=== PATIENT | male | born 1940 | race Asian ===

== ENCOUNTER 2023-10-30 15:40 | Emergency (ER) | payer OTHER, SELFPAY ==
[2023-10-30 15:42] VITALS: BP 102/51
[2023-10-30 16:15] LABS: % Basophils 0.3 % (0-2); % Eosinophils 0.6 % (0-6); % Immature Granulocytes 0.3 % (0-0.5); % Lymphocytes 7.9 % (20.5-51.1); % Monocytes 5.9 % (1.7-9.3); Absolute Basophils 0.1 10^3/uL (0-0.2); Absolute Eosinophils 0.1 10^3/uL (0-0.7); Absolute Immature Granulocytes 0.1 10^3/uL (0-0.05); Absolute Lymphocytes 1.2 10^3/uL (1.2-3.4); Absolute Monocytes 0.9 10^3/uL (0.1-0.6); Absolute Neutrophils 12.7 10^3/uL (1.4-6.5); Hematocrit 31.9 % (39.0-52.0); Mean Corp Hgb Conc. 34.5 g/dL (33.0-37.0); Mean Corpuscular Hgb 31.6 pg (27.0-31.0); Mean Corpuscular Volume 91.7 fL (80.0-94.0); Mean Platelet Volume 10.3 fL (7.4-10.4); Nucleated Red Blood Cells % 0 % (-); Platelet Count 137 10^3/uL (130-400); Red Blood Cell Count 3.48 10^6/uL (4.70-6.10); Red Cell Dist. Width 13.4 % (11.5-14.5)
[2023-10-30 16:21] LABS: ALT (SGPT) 13 U/L (0-50); AST (SGOT) 22 U/L (17-59); Albumin 3.5 g/dl (3.5-5.0); Alkaline Phosphatase 70 U/L (38-126); Blood Urea Nitrogen 34 mg/dl (9-20); Calcium 8.4 mg/dl (8.4-10.2); Carbon Dioxide 24 mmol/L (22-30); Chloride 100 mmol/L (98-107); Glucose 99 mg/dl (70-99); Potassium 4.1 mmol/L (3.5-5.1); Sodium 131 mmol/L (135-145); Total Bilirubin 0.7 mg/dl (0.2-1.3); Total Protein 5.9 g/dl (6.3-8.2); eGFR 42.75
[2023-10-30 17:16] VITALS: BMI 25.2
[2023-10-30 17:19] VITALS: BP 112/60
[2023-10-30 17:36] LABS: Urine Albumin Negative (Neg - Trace); Urine Bilirubin Negative (Negative); Urine Character Clear (Clear); Urine Color Yellow; Urine Glucose Negative (Negative); Urine Ketone Negative (Negative); Urine Leukocyte Negative (Negative); Urine Nitrite Negative (Negative); Urine Occult Blood Negative (Negative); Urine Urobilinogen Negative (Neg - 1+)
--- NOTE | 2023-10-30 19:08 | ED.GENMED ---
History of Present Illness
General
Chief Complaint: Weakness
Source: family
Exam Limitations: dementia
Time Seen by Provider: 10/30/23 17:28
History of Present Illness
History of Present Illness:
83-year-old male with history of hypertension and dementia who presents with generalized weakness. Daughter also states his blood pressure seems a little low. He has had occasional coughing. Yesterday he had an episode where he briefly seemed to
become unresponsive. Patient is unable to contribute to his own history. Daughter denies fevers. No vomiting. No head injury. During his passing episode he did sort of fall toward the floor.
Past History
Past History
ED Past Medical History: HTN and Other (Dementia, renal insufficiency)
Phy Exam
Physical Exam
Physical Exam:
CONSTITUTIONAL Patient alert. Well-appearing. Vital signs reviewed.
HEAD atraumatic, normocephalic.
EYES eyelids normal to inspection, Pupils equally round and reactive to light, Extraocular muscles intact, Conjunctiva normal, Sclera normal.
NECK normal range of motion, Trachea midline, no jugular venous distention.
RESPIRATORY CHEST No respiratory distress noted, Chest expansion equal, Bilateral breath sounds clear.
CARDIOVASCULAR regular rate and rhythm, Heart sounds normal.
ABDOMEN abdomen nontender, Bowel sounds normal. No distention.
BACK normal inspection, no obvious deformities
UPPER EXTREMITY range of motion normal, Motor strength normal, no cyanosis, no edema.
LOWER EXTREMITY range of motion normal, Motor strength normal, no cyanosis, no edema.
NEURO no focal deficits, cranial nerves intact. Nonverbal
SKIN skin warm, dry, and normal in color.
Course
Orders/Labs/Results
Orders:
Orders
10/30/23 15:47
Electrocardiogram (*1) Urgent
Reason for Study: Chest Pain
EKG- Treatment ONCE
10/30/23 15:56
Complete Blood Count/With Diff Urgent
Comprehensive Metabolic Panel Urgent
10/30/23 17:16
Urinalysis Reflex To Culture Urgent
Date Specimen was Collected: 10/30/23
Time Specimen was Collected: 17:12
10/30/23 17:17
CXR2 [CR Chest - 2 Views ] Urgent
Comment:
Reason For Exam: cough
10/30/23 17:40
CT Head W/o Iv Contrast Urgent
Comment:
Reason For Exam: fall, change in ms
10/30/23 19:37
COVID-19 Antigen Urgent
Source: Nasal Swab
Abnormal Lab Results
10/30/23
15:56
WBC 15.0 H 10^3/uL
(4.8-10.8)
RBC 3.48 L 10^6/uL
(4.70-6.10)
Hgb 11.0 L g/dL
(13.0-18.0)
Hct 31.9 L %
(39.0-52.0)
MCH 31.6 H pg
(27.0-31.0)
Abs Immat Gran (auto) 0.1 H 10^3/uL
(0-0.05)
Absolute Neuts (auto) 12.7 H 10^3/uL
(1.4-6.5)
Absolute Monos (auto) 0.9 H 10^3/uL
(0.1-0.6)
Neutrophils % 85.0 H %
(42.2-75.2)
Lymphocytes % 7.9 L %
(20.5-51.1)
Sodium 131 L mmol/L
(135-145)
BUN 34 H mg/dl
(9-20)
Creatinine 1.6 H mg/dL
(0.7-1.3)
Total Protein 5.9 L g/dl
(6.3-8.2)
10/30/23 15:56
10/30/23 15:56
Vital Signs
Initial and Last Documented VS:
Initial Vital Signs
Temp Pulse Resp BP Pulse Ox
98.1 F 67 16 102/51 97
10/30/23 15:42 10/30/23 15:42 10/30/23 15:42 10/30/23 15:42 10/30/23 15:42
Last Documented Vital Signs
Temp Pulse Resp BP Pulse Ox
98.7 F 58 16 112/60 99
10/30/23 18:00 10/30/23 17:19 10/30/23 17:19 10/30/23 17:19 10/30/23 17:19
MDM/Problems Addressed
MDM/Problems Addressed:
Leukocytosis, weakness
*Radiology
Radiology exam reviewed: preliminary read by ED provider (No focal infiltrates, no intracranial hemorrhage)
*Pulse Oximetry
Patient hypoxic: no
*EKG
Interpreted by ED Provider?: Yes
Rate: normal
Rhythm: sinus
[place]: normal axis
Ischemia: non-specific ST changes
*Inspector Final Assembly Electrical Interpretation
Rate: normal
Interpretation: normal
Rhythm: sinus
*Critical Care Note
Total Time (30-74mins, 75-104mins- exclusive of procedures): Not Applicable
Data Reviewed
Source: family
Prescriptions/Medications Considered But Not Given:
Considered antibiotics but no pneumonia, no UTI. Does have a mild leukocytosis but afebrile
Patient Management
Escalation/DeEscalation of care consider admission/obs:
Patient appears stable. No focal findings on exam and here he is at baseline with vital signs stable and no fever. Do acknowledge slight leukocytosis but no obvious source. Belly benign. I do feel he safe for discharge daughter watch him closely
and return for any progressive symptoms. The patient's daughter states that he has been coughing a bit and question upper respiratory infection. Daughter will monitor at home
ED Attending Note
-
Portions of this chart may have been created with voice recognition software.� Occasional wrong word or��sound alike� substitutions may have occurred due to the inherent limitations of voice recognition software.
Discharge Plan
Departure
Patient Disposition: Home (Routine Discharge)
Date of Disposition: 10/30/23
Time of Disposition: 20:10
Patient with high blood pressure during this ER visit?: No
Discharge Problem:
Weakness
Instructions: Generalized Weakness (DC)
Referrals:
India Lee MD [Family Provider] -
Activity Restrictions/Additional Instructions:
Please drink plenty of fluids and see your doctor tomorrow for follow-up and reevaluation. Return immediately for fever, changes in mentation, weakness of any kind or any other concerns.
Interventions
Interventions:
*Risk Screen - Suicide Last Done: 10/30/23 15:42
*General Assessment Last Done: 10/30/23 15:42
*Neglect/Abuse Screening Last Done: 10/30/23 15:42
*ED COVID-19 Vaccine History Last Done: 10/30/23 17:21
*Nursing Disposition Last Done: 10/30/23 20:20
ED- Cardiac Assessment Last Done: 10/30/23 17:19
ED- Neurological Assessment Last Done: 10/30/23 17:19
ED- Pulmonary Assessment Last Done: 10/30/23 17:19
Discharge Date and Time
Discharge Date/Time: 10/30/23 20:21
Print Language: Ukrainian
[2023-10-30 20:07] LABS: COVID-19 Antigen Negative (Negative)
== END 2023-10-30 20:21 | disposition home or self-care (01) ==
LOC: EMR 15:40
PROVIDERS: EMERGENCY PHYSICIAN Emergency Medicine; FAMILY PHYSICIAN Family Medicine
DX: R53.1 Weakness (principal); R05.9 Cough, unspecified; R41.82 Altered mental status, unspecified; Z11.52 Encounter for screening for COVID-19; D72.829 Elevated white blood cell count, unspecified; I10 Essential (primary) hypertension; F03.90 Unspecified dementia, unspecified severity, without behavioral disturbance, psychotic disturbance, mood disturbance, and anxiety; N28.9 Disorder of kidney and ureter, unspecified
CPT/HCPCS: 99284; 70450; 71046; 80053; 81003; 85025; 87811; 93005

== ENCOUNTER 2024-12-28 17:18 | Inpatient (IN) | payer OTHER, SELFPAY ==
[2024-12-28] VITALS (24 sets, daily range): BP systolic 103–153; BP diastolic 59–117; PULSE 2–97; BMI 22.0; BMI 21.3
--- NOTE | 2024-12-28 15:39 | EDRN ---
respiratory currently at the pts bedside with Dr. Carlos to place the pt on Bipap
--- NOTE | 2024-12-28 15:42 | EDRN ---
respiratory currently at the pts bedside and placed the pt on Bipap 12/5 6L 99% Sp02
[2024-12-28] MEDS: DUONEB 3 ML INH (15:43)
[2024-12-28] MEDS: DECADRON 10 MG IV (15:43)
[2024-12-28] MEDS: VENTOLIN NEBULES 7.5 MG INH (15:43)
--- NOTE | 2024-12-28 15:46 | ED.GENMED ---
History of Present Illness
General
Chief Complaint: Breathing Problem
Source: family and ambulance crew
Exam Limitations: clinical condition and non verbal-adult
Time Seen by Provider: 12/28/24 15:35
History of Present Illness
History of Present Illness:
84-year-old male apparently was off slightly throughout the week with general weakness and fatigue. In addition has had some wheezing intermittently through the week. This morning daughter noted he was very lethargic significant decreased
responsiveness. On medic arrival pulse ox 85%. Patient unable to add history
Past History
Past History
ED Past Medical History: HTN, NIDDM and Other (Dementia, renal insufficiency)
Phy Exam
Physical Exam
Physical Exam:
GENERAL: Lethargic. Nebulizer in place.
EYE: Orbits normal.
NECK: Supple, no significant adenopathy.
ENT: Pharynx without erythema
CARDIAC: Regular rate and rhythm without any obvious murmurs.
LUNGS: Tachypnea. Diffuse expiratory wheezing. Rhonchi and rales at the base
ABDOMEN: Soft, without focal tenderness or distention
NEUROLOGICAL: Lethargic. Will open eyes and follow some simple commands
SKIN: Warm and dry, no rash or lesion, no discoloration, skin intact.
MUSCULOSKELETAL: No edema,no deformity.Good color
Scores
Heart Failure Risk
Heart Failure Risk Score: Yes
History of Stroke or TIA: No
History of intubation for respiratory distress: No
Heart rate on ED arrival >/= 110: No
SaO2 <90% on arrival on room air: Yes
HR >/=110 during 3min walk test (or too ill to perform test): Yes
ECG has acute ischemic changes: Yes
Urea >/=12mmol/L (BUN 33.6mg/dL): No
Serum CO2>/=35mmol/L: No
Troponin I or T elevated to IA Level (0.4mg/dL): Yes
NT-proBNP >/=5,000ng/L (5,000pg/ml): Yes
HF Risk Score: 8
Admission Status: VERY HIGH RISK 81.2% Consider admission to hospital
Course
Orders/Labs/Results
Orders:
Orders
12/28/24 Breakfast
NPO
Allow oral meds: No
Allow clear liquids: No
12/28/24 15:35
EKG [Electrocardiogram (*1)] Urgent
Reason for Study: Shortness of Breath
Cardiac Monitoring- Treatment ONCE
EKG- Treatment ONCE
CR Chest Portable - 1 View Urgent
Comment:
Reason For Exam: sob
Reason Study Needs to be Portable: Patient Unstable
Bipap [RESP] Stat
Patient to use own unit?: No
Inspiratory Pressure (cm H2O): 10
Expiratory Pressure (cm H2O): 5
O2 Therapy [RESP] Stat
Titrate/Wean O2 to maintain O2 sat greater than (%): 95
Pulse Ox/cont/shift [RESP] Stat
Quantity: 1
12/28/24 15:38
Albuterol Sulfate [Ventolin Nebules] 7.5 mg INH R NOW STA
Dexamethasone Sod Phosphate [Decadron] 10 mg IV NOW STA
Ipratropium/Albuterol Sulfate [Duoneb] 3 ml INH R NOW STA
12/28/24 15:41
Basic Metabolic Panel Urgent
COVID-19 Antigen Urgent
Source: Nasal Swab
Complete Blood Count/With Diff Urgent
Magnesium Urgent
Comment: ADD ON
NT-proBNP Urgent
Phosphorus Urgent
Comment: ADD ON
Serum Osmolality Urgent
Comment: ADDON
Troponin I Urgent
Influenza A+B Rapid Molecular Urgent
VANDA Source: Nasal Swab
Specimen Description:
12/28/24 16:01
Furosemide [Lasix] 40 mg IV ONCE ONE
12/28/24 16:38
Heparin 3,500 units IV NOW STA
Nitroglycerin 100 mg/250 ml [Nitroglycerin Premix] 100 mg in 250 ml IV NOW
Initial dose in mcg/min, then titrate:: 5
Titrate to keep:: SBP < 160 mmHg
Titrate by mcg/min:: 5 mcg/min, may increase by 10 mcg/min if dose > 20 mcg/min
Frequency of titrations (minutes):: every 3-5 minutes
Maximum dose in mcg/min:: 200
Begin to taper infusion when:: Remained at goal for 2hrs
Taper by mcg/min:: 5 mcg/min
Frequency of taper (minutes) if patient maintains goal:: 30
Taper to off?: Yes
If infusion off & no longer maintaining goal:: Contact Provider
12/28/24 16:45
Heparin 50973 Units/250 ml 25,000 units in 250 ml IV PER PROTOCOL
Weight to be used for heparin protocol in kilograms (kg):: 58.1
Protocol:: Cardiac Tx/Acute Coronary
PTT Goal Range to be used:: PTT 73 to 111 seconds
Order type:: Initial
INITIAL Infusion Dose (UNITS/KG/hr) & then follow protocol:: 12 units/kg/hr
Infusion Dose in UNITS/hr & then follow protocol (UNITS/hr):: 700
INFUSION RATE in mL/hr & then follow protocol (mL/hr):: 7
PTT less than or equal to 64 seconds:: Increase rate by 200 units/hr (+ 2 mL/hr)
PTT 64.1 to 72.9 seconds:: Increase rate by 100 units/hr (+ 1 mL/hr)
PTT 73 to 111 seconds:: Target Range. No change in rate.
PTT 111.1 to 130.9 seconds:: Decrease rate by 100 units/hr (- 1 mL/hr)
PTT 131 to 199.9 seconds:: HOLD for 1 hr. Then decrease rate by 200 units/hr (- 2 mL/hr)
PTT greater than or equal to 200 seconds:: HOLD for 2 hrs & Notify Provider. Then decrease by 200 units/hr (-
2 mL/hr)
Lab follow-up:: Each change, PTT q6h until 2 consecutive are therapeutic. Then PTT
daily.
12/28/24 16:51
ABG [Arterial Blood Gas] Urgent
%Oxygen/Room Air: bipap
PTT Urgent
Comment: Obtain baseline before beginning heparin infusion if not already collected
Prothrombin Time Urgent
Comment: ADD ON
12/28/24 17:00
3% Sodium Chloride 250 ml [Sodium Chloride 3%] 250 ml IV ONCE
Pharmacy Request to Place See Dose Instructions IV DIRECTED
12/28/24 17:01
Admit/Transfer Patient As Directed
Co-Sign Provider:
Level of Care: Inpatient admission
Assign to:: ICU
Physician / Group: do
Diagnosis: acute hypoxic respiratory failure
Reason for Hospitalization: acute hypoxic respiratory failure
Expected length of stay greater than two midnights?: Yes
ELOS- Estimated Length of Stay in days: 3
I certify the patient meets the requirements for IP care: Yes
PRN Pain Medication Management As Directed
May give lesser potent ordered pain med per pt: Yes
preference::
Protocol:: Medication orders for pain may be administered in a
manner that supports deferring to patient preference
when the pt is:
- Requesting an ordered lesser potent pain medication.
Least to most potent pain medications are defined
as: acetaminophen < NSAID < tramadol < opioids
(morphine, oxycodone, hydromorphone).
- Requesting a lesser dose of the same medication IF
ORDERED.
- Requesting a less intrusive route of administration
if both routes are prescribed by the provider (PO <
IV).
12/28/24 17:02
Code Status As Directed
Resuscitation Status: Full Code
12/28/24 17:04
Add On- LAB Stat
Tests Added?: serum osmolality
NEPHROLOGY CONSULT Routine
Consulting Provider: Sukumar Wright V.
Was physician already notified: Yes
12/28/24 17:11
Sales And Leasing Agent Consult Routine
Consulting Provider: Juan Duncan
Was physician already notified: Yes
12/28/24 17:42
Urinalysis Reflex To Culture Stat
Date Specimen was Collected: 12/28/24
Time Specimen was Collected: 17:09
Comment: ADD ON
Urine Creatinine Stat
Date Specimen was Collected: 12/28/24
Time Specimen was Collected: 17:09
Comment: ADD ON
Urine Microscopic Reflex Cult Stat
Urine Osmolality Random [Osmolality, Random Urine] Stat
Date Specimen was Collected: 12/28/24
Time Specimen was Collected: 17:15
Urine Sodium Stat
Date Specimen was Collected: 12/28/24
Time Specimen was Collected: 17:09
12/28/24 18:38
Troponin I Q6H
Comment: at admission & every 6 hours x 2 (3 total), ECG to be done with each level
12/28/24 18:38
Echo 2D MMode Color/Doppler Routine
Reason for Study: heart failure
CARDIOLOGY CONSULT Routine
Consulting Provider: Carlos Duke
Was physician already notified: Yes
HF DIETARY CONSULT Routine
HF EDUCATOR CONSULT Routine
Comment:
Heparin Protocol- PTT Orders As Directed
PTT per Heparin protocol: -Obtain CBC and baseline PTT - if not already collected.
-Obtain PTT 6 hours from start of infusion. Then, every 6 hours until 2 consecutive
PTT's are therapeutic. Then, PTT Daily.
-With each rate change, obtain PTT every 6 hours until 2 consecutive PTT's are
therapeutic. Then, PTT Daily.
Activity As Directed
Activity Level: As Tolerated
Intake/ Output As Directed
Frequency: Per unit guidelines
Notify MD As Directed
Notify physician if: PTT is greater than or equal to 200.
Patient Education As Directed
Type: CHF folder
Comment: give on admission. Document in Interdisciplinary Education record
Sleep Apnea Assessment by RN As Directed
Comment:
Physician Instructions:
Vital Signs As Directed
Frequency: Other
Additional Instructions:: Q12 or per unit guidelines if more frequent.
Weight As Directed
Frequency: Daily
Type of Scale: Standing Scale
Comment: Daily morning weight. If unable to stand, use balanced bed scale.
Weight As Directed
Frequency: Once
Type of Scale: Standing Scale
Comment: Upon Admission. If unable to stand, use balanced bed scale.
Pulse Ox/cont/shift [RESP] Routine
Quantity: 1
Special Instructions: Daily pulse oximetry at rest. If greater than 92% at rest also obtain pulse oximetry
while ambulating as tolerated.
Ot Eval And Treat Routine
Pt Eval And Treat Routine
Activity Level: As Tolerated
Speech Therapy Eval & Treat Routine
12/28/24 23:15
PTT Urgent
12/29/24 00:38
Troponin I Q6H
Comment: at admission & every 6 hours x 2 (3 total), ECG to be done with each level
12/29/24 06:00
Basic Metabolic Panel IN AM
Cardiovascular Evaluation IN AM
Complete Blood Count/No Diff IN AM
Magnesium IN AM
TSH Reflex To Free T4 IN AM
12/29/24 06:38
Troponin I Q6H
Comment: at admission & every 6 hours x 2 (3 total), ECG to be done with each level
12/30/24 06:00
Basic Metabolic Panel IN AM
Complete Blood Count/No Diff IN AM
Complete Blood Count/No Diff Q2D
Comment: notify provider: Platelet count < 130,000 or decrease by 50% from baseline
12/31/24 06:00
Basic Metabolic Panel IN AM
Complete Blood Count/No Diff IN AM
01/01/25 06:00
Complete Blood Count/No Diff IN AM
Complete Blood Count/No Diff Q2D
Comment: notify provider: Platelet count < 130,000 or decrease by 50% from baseline
01/03/25 06:00
Complete Blood Count/No Diff Q2D
Comment: notify provider: Platelet count < 130,000 or decrease by 50% from baseline
01/05/25 06:00
Complete Blood Count/No Diff Q2D
Comment: notify provider: Platelet count < 130,000 or decrease by 50% from baseline
01/07/25 06:00
Complete Blood Count/No Diff Q2D
Comment: notify provider: Platelet count < 130,000 or decrease by 50% from baseline
01/09/25 06:00
Complete Blood Count/No Diff Q2D
Comment: notify provider: Platelet count < 130,000 or decrease by 50% from baseline
01/11/25 06:00
Complete Blood Count/No Diff Q2D
Comment: notify provider: Platelet count < 130,000 or decrease by 50% from baseline
01/13/25 06:00
Complete Blood Count/No Diff Q2D
Comment: notify provider: Platelet count < 130,000 or decrease by 50% from baseline
Abnormal Lab Results
12/28/24 12/28/24
15:41 16:51
WBC 15.2 H 10^3/uL
(4.8-10.8)
RBC 3.60 L 10^6/uL
(4.70-6.10)
Hgb 11.5 L g/dL
(13.0-18.0)
Hct 33.2 L %
(39.0-52.0)
MCH 31.9 H pg
(27.0-31.0)
Abs Immat Gran (auto) 0.1 H 10^3/uL
(0-0.05)
Absolute Neuts (auto) 14.1 H 10^3/uL
(1.4-6.5)
Absolute Lymphs (auto) 0.3 L 10^3/uL
(1.2-3.4)
Absolute Monos (auto) 0.8 H 10^3/uL
(0.1-0.6)
Neutrophils % 92.4 H %
(42.2-75.2)
Lymphocytes % 1.8 L %
(20.5-51.1)
pH 7.28 L
(7.35-7.45)
pCO2 28 L mmHg
(35-48)
pO2 168 H mmHg
(83-108)
HCO3 13.2 L* mmol/L
(21-28)
ABG O2 Sat (Measured) 98.1 H %
(94-98)
Sodium 118 L* mmol/L
(135-145)
Potassium 5.7 H mmol/L
(3.5-5.1)
Chloride 89 L mmol/L
(98-107)
Carbon Dioxide 15 L mmol/L
(22-30)
BUN 25 H mg/dl
(9-20)
Glucose 213 H mg/dl
(70-99)
Serum Osmolality 267 L mOsm/kg
(275-300)
Calcium 8.1 L mg/dl
(8.4-10.2)
Troponin I 8.680 H* ng/ml
12/28/24 15:41
12/28/24 15:41
Vital Signs
Initial and Last Documented VS:
Initial Vital Signs
Pulse Ox
85
12/28/24 15:47
Last Documented Vital Signs
Temp Pulse Resp BP Pulse Ox
99.6 F 88 17 126/59 100
12/28/24 15:52 12/28/24 18:15 12/28/24 18:15 12/28/24 18:07 12/28/24 18:07
MDM/Problems Addressed
Differential Diagnosis Includes:
Initial issue was primarily whether to intubate or continued with noninvasive assistance. Elected to try BiPAP. Has slowly responded well throughout his ER stay. Clearly much more alert prior to going up to the ICU. Complicated patient with a
non-STEMI IA with ischemic changes, hyponatremia, CHF. Doubt pulmonary emboli although is getting heparinized. Multiple rechecks. Patient is ventilating. Secondary metabolic acidosis. Nephrology pulmonary and cardiology will looped in addition
to the hospitalist. Family updated multiple times
*Pulse Oximetry
SaO2: 85
Oxygen Mode of Delivery: Room air
Patient hypoxic: yes
*EKG
Interpreted by ED Provider?: Yes
Interpretation: abnormal
Comparison EKG: changes noted
Heart Rate: 96
Rate: normal
Rhythm: sinus
[place]: normal axis
Interval: normal interval
QRS Pattern: normal QRS
Ischemia: ST depression
*Fast Food Assistant Restaurant Manager Interpretation
Rate: normal
Interpretation: normal
Heart Rate: 90
Rhythm: sinus
*Critical Care Note
Total Time (30-74mins, 75-104mins- exclusive of procedures): 70
Update Note
Update Note:
Patient with a sodium of 118. Discussed with nephrology. Start 3% at 20 cc/h. Troponin positive. Ischemic changes. Will start heparin and a nitro drip. Contacted cardiology. Family updated. He still has cardiac wheezing and is tachypneic but
he is more alert per the family. Remains with a good pulse ox.
Patient is slightly more alert per the daughter. He is responding. Still remains quite tachypneic. Will get ABG.
ED Attending Note
-
Portions of this chart may have been created with voice recognition software.� Occasional wrong word or��sound alike� substitutions may have occurred due to the inherent limitations of voice recognition software.
Discharge Plan
Departure
Patient Disposition: Admit
Date of Disposition: 12/28/24
Time of Disposition: 16:39
Presentation/result/management discussed w/ accepting MD/DO: Cardiology/nephrology
Discharge Problem:
Respiratory distress, Non-STEMI IA, Pulmonary edema, Severe hyponatremia
Interventions
Interventions:
*Risk Screen - Suicide Last Done: 12/28/24 15:52
*General Assessment Last Done: 12/28/24 15:52
*Neglect/Abuse Screening Last Done: 12/28/24 15:52
*ED- Fall Risk Assessment Last Done: 12/28/24 15:52
*ED COVID-19 Vaccine History Last Done: 12/28/24 15:52
*Nursing Disposition Last Done: 12/28/24 18:27
ED- Cardiac Assessment Last Done: 12/28/24 15:52
ED- Pulmonary Assessment Last Done: 12/28/24 15:52
Discharge Date and Time
Discharge Date/Time: 12/28/24 18:32
[2024-12-28 15:51] LABS: Hematocrit 33.2 % (39.0-52.0); Hemoglobin 11.5 g/dL (13.0-18.0); Mean Corp Hgb Conc. 34.6 g/dL (33.0-37.0); Mean Corpuscular Volume 92.2 fL (80.0-94.0); Nucleated Red Blood Cells % 0 % (-); Platelet Count 150 10^3/uL (130-400); Red Cell Dist. Width 13.1 % (11.5-14.5)
[2024-12-28 16:03] LABS: COVID-19 Antigen Negative (Negative)
[2024-12-28] MEDS: LASIX 40 MG IV (16:06)
--- NOTE | 2024-12-28 16:13 | EDRN ---
external condom catheter placed after lasix administration
[2024-12-28 16:15] LABS: Blood Urea Nitrogen 25 mg/dl (9-20); Calcium 8.1 mg/dl (8.4-10.2); Carbon Dioxide 15 mmol/L (22-30); Chloride 89 mmol/L (98-107); Estimated Creatinine Clearance 38 ml/min; Glucose 213 mg/dl (70-99); Potassium 5.7 mmol/L (3.5-5.1); Sodium 118 mmol/L (135-145); eGFR > 60.00
[2024-12-28 16:25] LABS: Troponin I 8.680 ng/ml
--- NOTE | 2024-12-28 16:35 | HPS.HSE ---
Addendum entered and electronically signed by Sabas Michel MD 12/28/24 18:14:
84-year-old male with a past medical history of dementia, nonverbal status, hypertension, hyperlipidemia, gastroesophageal reflux disease, and prediabetes was brought in by his daughter for worsening weakness and decreased responsiveness. Daughter
reports that patient has been weak for 1 week, today became severe and he was unable to stand. He was also more lethargic today, and difficult to arouse. Apparently patient had an episode of choking while he ate last Monday. Daughter denies any
fever at home or vomiting.
Patient is currently in respiratory failure on BiPAP, troponin 8.68, with [address] depressions in the inferolateral leads.
Cardiology recommended rectal aspirin, IV heparin drip, trending troponins, checking head CT.
Patient's sodium is 118, potassium 5.7, with a metabolic acidosis.
Nephrology recommending Lasix 40 mg IV twice daily, checking urine creatinine/sodium/osmolality, checking serum osmolality, checking lactic acid.
Patient was satting 85% on room air at home.
Patient does have a leukocytosis, with a low-grade fever of 99.6.
Chest x-ray shows mild pulmonary vascular congestion, trace left pleural fluid.
Continue BiPAP, admit to ICU, consult nougat cutter machine.
Daughter at bedside and updated.
I have personally seen and examined the patient, and agree with the plan of care as documented by DUANE Patton.
Advance care planning discussed, patient is a full code.
All other issues as outlined by the advanced care practitioner.
Total time spent to see the patient on the floor, examine the patient, review data and lab results, discuss treatment plan with patient, nursing staff around 80 minutes.
Original Note:
Family Physician
-
Family Physician:
Chief Complaint
-
lethargic
History of Present Illness
84-year-old with past medical history for GERD, dementia, type 2 diabetes, hypertension, hyperlipidemia, dementia with nonverbal presented to us with lethargic since this morning. Patient was fatigued for past 1 week. Today his daughter noticed
him more lethargic. He was not able to get up this morning and could barely keep his eyes open. He was not responding to his daughter. Daughter stated, he was wheezing last week. Patient has chronic lower extremities edema and today it was
swollen more than usual. the daughter his noticed his eyes were rolling back. Patient not able to provide any meaningful story.
Upon arrival patient hypoxic requiring BiPAP. Concern for CHF, NSTEMI. Initiated on heparin drip and nitro drip. Admitting for further management
Medical History
Past Medical History
Past Medical History: Reports Other
Additional Past Medical History:
Stage IIIa chronic kidney disease
Dementia
Hyperlipidemia
CVA
Hypertension
Type 2 diabetes
Past Surgical History: Reports Other
Additional Past Surgical History:
Bilateral cataract surgery
Social History
Tobacco: Former Smoker
Alcohol: None
Drug: None
Living: With Family
Family History
Family History: Not pertinent
Allergies / Home Medications
Allergies reflects when Allergies were last updated in [facility].
Home Medications with original date entered in [facility]
Allergy/Medication List:
Allergies
Allergy/AdvReac Type Severity Reaction Status Date / Time
No Known Allergies Allergy Verified 10/30/23 15:47
Review of Systems
-
Unable to obtain full review of systems at this time due to: Acuity
Physical Exam
Vital Signs
Vital Signs
Temp Pulse Resp BP Pulse Ox
99.6 F 100 24 138/86 100
12/28/24 15:52 12/28/24 16:06 12/28/24 15:52 12/28/24 16:06 12/28/24 15:52
Physical Exam
General: Well Developed, Well Nourished and No Apparent Distress
HEENT: NormoCephalic, Moist mucous membranes and Atraumatic
Respiratory: Wheezes
Cardiac: S1/S2 and Regular Rhythm; No Murmur or Rub
GI: Soft, Non Tender, Non Distended and Normal Bowel Sounds; No Organomegaly
Rectal: Deferred by Provider
Musculoskeletal: No Clubbing, No Cyanosis and Other (Bilateral lower extremities edema)
Skin: No Rash
Neuro: Nonfocal/grossly intact
Laboratory Results
-
12/28/24 15:41
12/28/24 15:41
Laboratory Results
Troponin I 8.680 ng/ml H* 12/28/24 15:41
Data Reviewed
-
Diagnostic Radiology: Report Reviewed by me
Lab Data: Labs Reviewed by me
Impression/Plan
-
# Lethargic/acute hypoxic respiratory failure concern for CHF vs aspiration
- BNP 17 400
- COVID-negative
- Chest x-ray with impression Mild pulmonary vascular congestion. Trace left pleural fluid.
- Patient is on BiPAP, continue supplemental oxygen to keep sat greater than 95, wean as tolerated
- IV diuretics
- Strict SHANNAN, daily weight, fluid restriction
- Obtain echocardiogram
- Cardiology consult
-speech consulted.
# Acute on hyponatremia likely hypervolemic
# Hyperkalemia/metabolic acidosis
- Sodium 118, K5.7
-diuretics.
- Continue to trend BMP
-Obtain urine osmolality, sodium and serum osmolality
-nephro consulted
#Leukocytosis likely chronic vs from aspiration
- WBCs 15.2, patient is afebrile
-ctm
# Anemia likely chronic
- Hemoglobin 11.5, no active bleeding
- Continue to monitor
# Elevated troponin rule out NSTEMI
- Troponin 8.680
- Heparin continued
-trend trop
-EKG with ischemic changes.
# Type 2 diabetes
- Sliding scale
# History of dementia with nonverbal
- Patient takes memantine at home
# Essential hypertension
- Patient is on terazosin, metoprolol
#DVT prophylaxis
- Heparin drip
# CODE STATUS
- Full code
will keep patient nPO, until fully awake and able to tolerate oral intake. will consult speech for evaluation.
[2024-12-28] MEDS: SODIUM CHLORIDE 3% 250 IV (16:53)
--- NOTE | 2024-12-28 17:01 | W.CON.NEPH ---
Consultation
-
Date/Time Consultation Requested: 12/28/2024 4:45 PM
Date/Time Consultation Performed: 12/28/2024 4:45 PM
Requesting Provider: Dr. Carlos
Performing Provider: Dr. Wright
Reason for Consultation: Hyponatremia /hyperkalemia
Medical History
-
Chief Complaint: Hyponatremia/hyperkalemia
History of Present Illness:
The patient is an 84-year-old male with a past medical history of hypertension and dementia, CKD (1.6 10/24), who presents with increasing shortness of breath with hypoxia and worsening mental status. On admission to the hospital he was notably
hyponatremic with a serum sodium level of 118 with accompanied hyperkalemia and positive troponin level with EKG changes. Nephrology was then asked to see this critically ill patient.
Past Medical History
Hypertension
Dementia
Social History
Tobacco: Former Smoker
Alcohol: None
Drug: None
Living: With Family
Family History
Family History: Not Pertinent
Allergies / Home Medications
Allergy/AdvReac Type Severity Reaction Status Date / Time
No Known Allergies Allergy Verified 10/30/23 15:47
Review of Systems
-
Unable to obtain full review of systems at this time due to: Dementia and Language Barrier
History Source: Patient
Respiratory: Trouble Breathing
Neurological: Other (Lethargy and mental status changes)
Physical Exam
Vital Signs
Vital Signs
Temp Pulse Resp BP Pulse Ox
99.6 F 100 24 138/86 100
12/28/24 15:52 12/28/24 16:06 12/28/24 15:52 12/28/24 16:06 12/28/24 15:52
Lab Results
12/28/24 15:41
12/28/24 15:41
WBC 15.2 10^3/uL (4.8-10.8) H 12/28/24 15:41
RBC 3.60 10^6/uL (4.70-6.10) L 12/28/24 15:41
Hgb 11.5 g/dL (13.0-18.0) L 12/28/24 15:41
Hct 33.2 % (39.0-52.0) L 12/28/24 15:41
Plt Count 150 10^3/uL (130-400) 12/28/24 15:41
Sodium 118 mmol/L (135-145) L* 12/28/24 15:41
Potassium 5.7 mmol/L (3.5-5.1) H 12/28/24 15:41
Chloride 89 mmol/L (98-107) L 12/28/24 15:41
Carbon Dioxide 15 mmol/L (22-30) L 12/28/24 15:41
BUN 25 mg/dl (9-20) H 12/28/24 15:41
Creatinine 1.2 mg/dL (0.7-1.3) 12/28/24 15:41
eGFR > 60.00 12/28/24 15:41
Glucose 213 mg/dl (70-99) H 12/28/24 15:41
Calcium 8.1 mg/dl (8.4-10.2) L 12/28/24 15:41
Jnk-X-Iklyytdjhzr Pept 15825 pg/ml 12/28/24 15:41
Physical Exam
General: Awake, Alert and Other (Severe respiratory distress/unable to answer questions/on BiPAP)
HEENT: EOMI, Anicteric, Conjunctivae Clear, Ear/Nose Intact, Oropharynx Clear/Moist, Facial Symmetry, Neck Supple, Trachea Midline and No Thyromegaly
Respiratory: Other (Coarse breath sounds at bases with scattered wheezes)
Cardiac: S1/S2 and Regular Rate/Rhythm
Breast: Deferred by me
Abdomen: Nondistended, Normal Bowel Sounds and No Hepatosplenomegaly
Rectal: Deferred by Provider
Genito-urinary: No Costovertebral Tender
Musculoskeletal: Cyanosis (Cyanotic changes along feet) and Other (Trace pretibial pitting edema)
Skin: No Bruising and Other (Cyanotic changes along feet)
Neuro: Other (Unable to effectively evaluate as patient is demented and non-Kinyarwanda speaking, moves all 4 limbs independently)
Hematologic/Lymphatic: No Cervical Lymphadenopathy, No Submandibular Lymphadenopathy and No Supraclavicular Lymphadenopathy
Psych: Other (Unable to evaluate due to severe respiratory distress on BiPAP with language barrier)
Data Reviewed
-
Radiology: Image Personally Visualized and interpreted (Chest x-ray personally reviewed notes small pleural effusion with some hilar interstitial edematous changes)
Medical Tests (Nuc Med, Echo etc): Other (Reviewed EKG personally with sinus rhythm and ST depressions in high and low lateral leads)
Labs: Labs Reviewed by me (BMP CBC)
Old Records: Reviewed (Reviewed old laboratory values from 10/30/2023 EMR sodium 131 creatinine 1.6)
Assessment/Plan
-
Impression:
Hypoxic respiratory failure/proBNP 17,400
[place] (Positive troponin of [address] depressions)
Hyponatremia : 118
Hyperkalemia
CKD with suspected baseline of 1.5
Predominantly nongapped metabolic acidosis
Plan:
Hyponatremia (suspected hypervolemic given elevated proBNP of greater than 17,000 and new onset hypoxic respiratory failure in some mild noted CHF findings on chest x-ray)
- Check urine sodium, and urine creatinine, urine osm, UA
- As patient has suspected hypervolemia in setting of decompensated congestive heart failure I would not utilize hypertonic saline at this time
- Instead initiate Lasix 40 mg IV twice daily
- Accurate I's and O's with Baker catheter to gravity
- Check TSH,cortisol
- Fluid restriction to 1200 cc per day
Hyperkalemia:
- Likely a function of metabolic acidosis
- ABG 7.28 PCO2 28 O2 168 13.2
- Would provide Lokelma if p.o. route can be provided
- Would provide 1 amp of sodium HCO3 now
Metabolic acidosis (AG 14)
- Check lactic acid despite predominant gapped metabolic acidosis
- No evidence of GI losses
-?RTA
- Etiology is elusive
- I am hesitant to provide sodium HCO3 given suspected volume overload but if acidosis exacerbates we will have to provide this with sodium bicarbonate drip
Positive troponin:
- I would consider urgent echo
Patient is critically ill with hypoxic respiratory failure profound metabolic acidosis hyponatremia and hyperkalemia
Total Time Spent with Patient (in minutes): 56
--- NOTE | 2024-12-28 17:04 | EDRN ---
IV team currently at the pts bedside
--- NOTE | 2024-12-28 17:05 | EDRN ---
this RN called the pharmacy, awaiting for heparin gtt to be verified
[2024-12-28 17:08] LABS: B.E. -12.1 mmol/L; O2 Saturation % 98.1 % (94-98); PCO2 28 mmHg (35-48); PO2 168 mmHg (83-108)
[2024-12-28 17:10] LABS: HCO3 13.2 mmol/L (21-28)
[2024-12-28] MEDS: HEPARIN 3500 UNITS IV (17:10)
[2024-12-28] MEDS: HEPARIN 25000 UNITS/250 ML IV (17:12)
[2024-12-28 17:16] LABS: APTT 29.3 Sec (23.4-35.0)
--- NOTE | 2024-12-28 17:22 | CON.CAR ---
Consultation
Consultation Request
Date/Time Consultation Requested: 12/28/24 at 4:33 PM
Date/Time Consultation Performed: 12/28/2024 at 4:45 PM
Requesting Provider: Dani Carlos MD
Performing Provider: Carlos Duke MD
Reason for Consultation: Elevated troponin
Medical History
-
Chief Complaint: Elevated troponin
History of Present Illness:
84-year-old man with history of hypertension, diabetes, CKD, and dementia who presents with altered mental status. History is obtained entirely from his daughter as patient is lethargic. His daughter reports that for the past week he has been
feeling more fatigued than usual. Last Monday he had an episode where he choked while eating. He has not had any more specific complaints over the course of the week such as chest pain, shortness of breath, lightheadedness, or dizziness. She does
note that he is 'not complainer'. This morning he was difficult to arouse and they brought him to the ER.
Past Medical History
Past Medical History: HTN and Other (CKD, dementia)
Social History
Living: With Family
Family History
Family History: Reviewed & Not Pertinent
Allergies / Home Medications
Allergy/AdvReac Type Severity Reaction Status Date / Time
No Known Allergies Allergy Verified 10/30/23 15:47
�Medication �Instructions �Recorded �Confirmed �Type
aspirin 81 mg tablet,delayed 81 mg PO DAILY 12/28/24 12/28/24 History
release
dipyridamole 75 mg tablet 75 mg PO BID 12/28/24 12/28/24 History
memantine 10 mg tablet 10 mg PO DAILY 12/28/24 12/28/24 History
metformin 500 mg tablet 500 mg PO DAILY 12/28/24 12/28/24 History
metoprolol tartrate 25 mg tablet 12.5 mg PO BID 12/28/24 12/28/24 History
pantoprazole 40 mg tablet,delayed 40 mg PO DAILY 12/28/24 12/28/24 History
release
simvastatin 10 mg tablet 10 mg PO DAILY 12/28/24 12/28/24 History
terazosin 1 mg capsule 1 mg PO HS 12/28/24 12/28/24 History
Review of Systems
-
Unable to obtain full review of systems at this time due to: Other (Patient lethargic and nonresponsive)
History Source: Family
Physical Exam
Vital Signs
Temp Pulse Resp BP Pulse Ox
99.6 F 103 20 140/87 100
12/28/24 15:52 12/28/24 17:00 12/28/24 17:00 12/28/24 16:17 12/28/24 17:00
Lab Results
12/28/24 15:41
12/28/24 15:41
Troponin I 8.680 ng/ml H* 12/28/24 15:41
Tht-H-Gybtrkbqquq Pept 44037 pg/ml 12/28/24 15:41
Physical Exam
General: Other (Lethargic, on BiPAP, swollen facies, intermittently opens eyes to voice, does not respond to questions or commands)
Respiratory: Crackles and Accessory Resp Muscle Use
Cardiac: Regular Rhythm, Murmur and Other (Feet are mottled); Negative Peripheral Edema
Impression / Plan
-
84-year-old man with history of hypertension, diabetes, CKD, and dementia who presents with altered mental status. Cardiology is consulted for elevated troponin.
Altered mental status
-Unclear etiology. May be toxic metabolic encephalopathy in the setting of electrolyte derangements. Daughter reports episode of aspiration on Monday so could have an aspiration pneumonia. No hypotension to suggest cardiogenic shock from ACS.
-Recommend CT head given that we are initiating heparin for possible ACS
-Renal consulted for electrolyte derangements
NSTEMI
-Initial troponin 8.6. ECG with [address] depressions in the inferolateral leads. Patient unresponsive so cannot complain of chest pain.
-Will initiate medical management with IV heparin and rectal aspirin as he is unable to take p.o.
-Trend troponins and ECGs every 3 hours
-Recommend CT head to rule out intracranial abnormality in the setting of starting systemic anticoagulation
Hyponatremia
Hyperkalemia
Low bicarb
Data Reviewed
-
EKG: Tracing Personally Visualized and interpreted, Discussed with Physician, Discussed with Nurse and Discussed with Patient
Radiology: Image Personally Visualized and interpreted and Report Reviewed by me
Labs: Labs Reviewed by me, Discussed with Physician and Discussed with Family
Critical Care Time (in minutes): 31 min
--- NOTE | 2024-12-28 17:35 | EDRN ---
external condom catheter was ineffective, bed soiled in large amount of urine, hydraulic mechanic at the pts bedside and wanted an indwelling urinary catheter placed as well as urology, ER provider Dr. Carlos placed an order for quach, temperature sensing
16 serbian indwelling urinary catheter was placed, this RN and another SPARKER AND PATCHER changed the pts gown, linens, and covidian pad, the pt was repositioned and the pt is sitting up in stretcher with HOB elevated, the pt is more awake currently
[2024-12-28] MEDS: ASPIRIN 300 MG RECTAL (17:54)
[2024-12-28] MEDS: SODIUM BICARBONATE 50 MEQ IV (18:15)
[2024-12-28 18:25] LABS: Urine Character Clear (Clear)
--- NOTE | 2024-12-28 18:27 | EDRN ---
this RN called the receiving ICU nurse Patricia LU and gave verbal report
[2024-12-28 18:32] LABS: Troponin I 8.530 ng/ml; Urine White Cell 0-2 /HPF (0-5)
[2024-12-28 18:40] LABS: INR 1.08; PT 14.3 Sec (11.4-14.6)
[2024-12-28 19:07] LABS: Glucose - Point of Care 252 mg/dl (70-99)
--- NOTE | 2024-12-28 19:10 | PTCARENOTE ---
Rec'd pt at 1840 via stretcher from the ED. Rec'd pt drowsy but arousable. Opens eyes and an occasional moan but no actual speech- pt is Ivorian speaking and family will be at the bedside. Does move arms and does intermittently but legs tends to
keep knees bent. Skin is lamar wm and dry. Respirs are shallow- rec'd pt on Bipap 12/5 +6L- RR in the 20's. Sats 97%. BS are coarse with exp wheezing. Monitor SR. + pulses. VS as documented. Abd is soft with + BS. INcont of mod amt of lamar soft stool.
Thermistor quach in place draining yellow urine. IV's Capped int intact L hand. R aC with 3% Saline at 20 ml/hr. L AC with Heparin gtt at 700 units/hr. 2 set of blood cultures sent per md order. Complete CHG bath given. Turned and repositioned.
ECHO here currently to do Echocardiogram.
[2024-12-28 19:18] LABS: Magnesium 2.2 mg/dl (1.6-2.3)
[2024-12-28] MEDS: UNASYN IV (21:04)
[2024-12-28] MEDS: SODIUM BICARBONATE 1150 MEQ IV (21:05)
[2024-12-28] MEDS: TYLENOL/FEVERALL 650 MG RECTAL (21:23)
--- NOTE | 2024-12-28 21:33 | PTCARENOTE ---
Received pt at 1900 resting in bed. Will flutter eyes open and SANTOS with verbal and tactile stimulation. Family reports he is nonverbal at baseline but does normally follow commands. Not following commands at this time. SR with 1st deg AVB on tele.
HR 80s. BP stable 120-130s/70-80s. Temp 100.4 - rectal tylenol given. Discussed w/ AIR BATTLE MANAGER - antibiotics ordered and started. On bipap 03/07 with 3L bled through. Lungs coarse and diminished throughout with exp wheezing in upper posterior lobes. Spo2
98%. Hypoactive bowel sounds. NPO. Baker draining yellow urine - see I&O. Heparin gtt, 3% saline, and bicarb gtt infusing as ordered. Turning q2.
Admission completed with daughters at bedside as pt is nonverbal.
[2024-12-28 23:49] LABS: Glucose - Point of Care 192 mg/dl (70-99)
[2024-12-29] VITALS (27 sets, daily range): BP systolic 90–126; BP diastolic 59–82; PULSE 2–79; BMI 21.1
[2024-12-29] MEDS: NOVOLOG FLEXPEN-MODERATE RESISTANCE 1 UNITS SC (00:14)
--- NOTE | 2024-12-29 00:20 | PTCARENOTE ---
Pt. slightly more awake, opening eyes more spontaneously, more interactive with family. Pt. pyroglazer came to visit and pt able to open eyes for more sustained period. Vitals stable. Remains on bipap 12/5 3L. Continues to be orthopneic when turning.
CIVIL ENGINEER'S AIDE aware head CT on hold for now. Repeat labs drawn. Daughter staying overnight at bedside - updated.
[2024-12-29 00:43] LABS: APTT 47.2 Sec (23.4-35.0)
[2024-12-29 00:49] LABS: Blood Urea Nitrogen 24 mg/dl (9-20); Calcium 7.8 mg/dl (8.4-10.2); Carbon Dioxide 19 mmol/L (22-30); Chloride 95 mmol/L (98-107); Estimated Creatinine Clearance 34 ml/min; Glucose 187 mg/dl (70-99); Potassium 4.3 mmol/L (3.5-5.1); Sodium 127 mmol/L (135-145); eGFR 54.51
[2024-12-29 00:59] LABS: Troponin I 10.700 ng/ml
--- NOTE | 2024-12-29 01:03 | PTCARENOTE ---
Na = 127. Dr. Wright notified. Orders to stop 3% saline at this time.
--- NOTE | 2024-12-29 02:28 | PTCARENOTE ---
L AC INT removed earlier in shift. Few hrs later, site started to ooze- pressure held and bleeding resolved. Now, oozing again and appears to have hematoma below and above previous INT site. Pressure held for about 15 min to get oozing to stop. FOOD TECHNOLOGIST
Higgins at bedside. Ultrasound ordered to r/o DVT. L radial + brachial pulses normal. Ice pack applied. Also has mild bleeding around quach catheter. No hematuria noted. Will monitor. PTT was subtherapeutic (47.2) on recent check. Heparin gtt
currently at 900units/hr.
[2024-12-29 03:20] LABS: B.E. 0.2 mmol/L; HCO3 22.9 mmol/L (21-28); O2 Saturation % 97.9 % (94-98); PCO2 30 mmHg (35-48); PO2 160 mmHg (83-108); Potassium 4.0 mMOL/L (3.5-5.1); Sodium 124 mMOL/L (136-145)
[2024-12-29] MEDS: UNASYN IV (03:25)
[2024-12-29] MEDS: CALCIUM GLUCONATE 130 MG IV (05:27)
[2024-12-29] MEDS: NOVOLOG FLEXPEN-MODERATE RESISTANCE SC ×3 (05:36→17:51)
[2024-12-29 05:47] LABS: Glucose - Point of Care 142 mg/dl (70-99)
[2024-12-29 05:49] LABS: Hematocrit 29.4 % (39.0-52.0); Hemoglobin 10.4 g/dL (13.0-18.0); Mean Corp Hgb Conc. 35.4 g/dL (33.0-37.0); Mean Corpuscular Volume 89.1 fL (80.0-94.0); Platelet Count 139 10^3/uL (130-400); Red Cell Dist. Width 12.8 % (11.5-14.5)
[2024-12-29 05:55] LABS: APTT 132.8 Sec (23.4-35.0)
--- NOTE | 2024-12-29 06:02 | PTCARENOTE ---
Remained on bipap 12/5 overnight. Mental status continues to slowly improve. More sustained spontaneous awakening. Remains nonverbal. AM labs drawn.
[2024-12-29 06:15] LABS: Troponin I 12.400 ng/ml
[2024-12-29 06:36] LABS: Cortisol, Random 6.1 ug/dl
--- NOTE | 2024-12-29 07:53 | W.PN.NEPH.PH ---
Today's Communication / Plan
-
d/c sodium bicarbonate
maintain IV to daily and fluid restriction
follow up labs
Assessment/Plan
-
Impression:
Hypoxic respiratory failure/proBNP 17,400
[place] (Positive troponin of [address] depressions)
Hyponatremia : 118
Hyperkalemia
CKD with suspected baseline of 1.5
Predominantly nongapped metabolic acidosis
Plan:
Hyponatremia (suspected hypervolemic given elevated proBNP of greater than 17,000 and new onset hypoxic respiratory failure in some mild noted CHF findings on chest x-ray)
-Serum sodium up from 118-124 following hypertonic saline
-Maintain IV Lasix 40mg daily for decompensated congestive heart failure
- Accurate I's and O's with Baker catheter to gravity
- Check TSH,cortisol
- Fluid restriction to 1200 cc per day
Hyperkalemia:
- Likely a function of metabolic acidosis
- ABG 7.28 PCO2 28 O2 168 13.2
-K improved with resolution of acidosis
Metabolic acidosis (AG 14)
-lactic acidosis
-Discontinue sodium bicarb and his pH is now greater than 7.45
- No evidence of GI losses
-?RTA
- Etiology is elusive
-cultures pending
CHF/Positive troponin:
-Echo reviewed with cards (ehco ~45%)
- Troponin up to 12
-
-
Date of Service: December 29, 2024
CC / HPI / ROS
-
Chief Complaint:
Hyponatremia
Metabolic acidosis
History of Present Illness:
creatinine stable at 1.3
hemodynamically labile
sodium up to 124
metabolic acidosis improved
Review of Systems:
non oliguric 2liters
fevers
Labs
-
Labs:
WBC 15.1 10^3/uL (4.8-10.8) H 12/29/24 05:26
RBC 3.30 10^6/uL (4.70-6.10) L 12/29/24 05:26
Hgb 10.4 g/dL (13.0-18.0) L 12/29/24 05:26
Hct 29.4 % (39.0-52.0) L 12/29/24 05:26
Plt Count 139 10^3/uL (130-400) 12/29/24 05:26
eGFR Cancelled 12/29/24 06:23
Phosphorus 4.4 mg/dl (2.5-4.5) 12/28/24 15:41
Bdy-Y-Ugyuupvfphm Pept 83760 pg/ml 12/28/24 15:41
Physical Exam
-
Vital Signs:
Vital Signs
Temp Pulse Resp BP Pulse Ox
99.6 F 80 16 116/76 97
12/29/24 03:09 12/29/24 06:00 12/29/24 06:00 12/29/24 06:00 12/29/24 06:00
Cardiovascular:: Regular rate and rhythm
Respiratory:: Bilateral: Coarse
Lung Excursion:: Normal
Abdomen:: Nontender and Soft
Bowel Sounds:: Normal
Extremity Edema:: None: Bilateral:
Baker Catheter: Yes
--- NOTE | 2024-12-29 08:10 | CON.INTV ---
Addendum entered and electronically signed by Juan Duncan MD 12/30/24 01:08:
Patient was seen and evaluated on 12/29/2024
Original Note:
Consultation
Consultation Request
Date/Time Consultation Requested: 12/28/2024 - 1710
Date/Time Consultation Performed: 12/29/2024 - 804
Requesting Provider: DUANE Patton
Performing Provider: Dr. Duncan
Reason for Consultation: AMS
Medical History
-
Chief Complaint: SOB
History of Present Illness:
84-year-old Vietnamese male with PMHx of dementia, HTN, HLD, CKD3a, Hx of TB s/p treatment, and Hx of CVA who p/w SOB, wheezing and found to be hypoxic. EMS administered albuterol + duonebs. Per the family, the pt has become increasingly weak and
confused/acting different and has been difficult to arouse. 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 He did get the flu shot recently. He was initially afebrile, KY 97, RR 25, BP 138/86 and SpO2 85% on room air. Due to his SOB, he
was placed onto BiPAP. Labs showed leukocytosis to 15.2, Hb 11.5, serum HCO3 low at 15, hyponatremic to 118, elevated potassium to 5.7, glucose 213, lactate 8.8, elevated troponin to 8.68, [place] [address]. UA was not suggestive of a
UTI. COVID-19 antigen was negative. Flu swab negative and blood Cx collected. CXR showed pulmonary vascular congestion (mild) with trace left pleural fluid. CT was ordered but he could not lay flat despite BiPAP. EKG showed ST depressions in
infero-lateral leads. Heparin gtt started, given albuterol, decadron, lasix, duonebs and 3%. Then admitted to ICU and Veterinary Surgery Technician service consulted for additional management/recommendations.
When I saw the pt this AM, his daughters x2 were at bedside (Yael and Dustin). The pt was resting in bed in NAD. Was on BiPAP this AM and was TRX to nasal cannula. HR 78, BP 110/66 and he was saturating 96% on 2L/min nasal cannula. Daughters
said that day before he came to ER, they saw blood coming out of his mouth, and not sure if he bit his tongue/lip, or if he threw up blood or coughed it out. He has not had another episode of bloody cough or vomiting since being here in ICU. His
troponin is continuing to rise, lactate is improving. Pt unable to interact with HPI given his dementia.
PMHx: Dementia, HLD, HTN, DM type II, CKD 3a, treated TB, Hx of CVA, Hx of skin cyanosis, GERD
PSHx: Cataract surgery (bilateral)
Past Medical History
Past Medical History: Other (Above as per HPI)
Past Surgical History: Other (Above as per HPI)
Social History
Tobacco: Former Smoker (Quit at age 71, previously smoked 1-2 cigarettes a day)
Alcohol: None
Drug: None
Family History
Family History: Other (Siblings: stroke)
Allergies / Home Medications
Allergies
Allergy/AdvReac Type Severity Reaction Status Date / Time
No Known Allergies Allergy Verified 10/30/23 15:47
Home Medications
�Medication �Instructions �Recorded �Confirmed �Last Taken �Type
aspirin 81 mg tablet,delayed 81 mg PO DAILY Blood Clot 12/28/24 12/28/24 Unknown History
release Prevention/Tx
dipyridamole 75 mg tablet 75 mg PO BID 12/28/24 12/28/24 Unknown History
memantine 10 mg tablet 10 mg PO DAILY Dementia 12/28/24 12/28/24 Unknown History
metformin 500 mg tablet 500 mg PO DAILY Diabetes 12/28/24 12/28/24 Unknown History
metoprolol tartrate 25 mg tablet 12.5 mg PO BID Blood Pressure 12/28/24 12/28/24 Unknown History
pantoprazole 40 mg tablet,delayed 40 mg PO DAILY Gastrointestinal 12/28/24 12/28/24 Unknown History
release Issue
simvastatin 10 mg tablet 10 mg PO DAILY High Cholesterol 12/28/24 12/28/24 Unknown History
terazosin 1 mg capsule 1 mg PO HS 12/28/24 12/28/24 Unknown History
Review of Systems
-
Unable to Obtain full review of systems at this time due to: Dementia and Acuity
Vitals / Labs / Diagnostic Testing
Vital Signs
Temp Pulse Resp BP Pulse Ox
98.6 F 78 16 107/69 89
12/29/24 08:00 12/29/24 09:06 12/29/24 06:00 12/29/24 09:06 12/29/24 08:06
Lab Data
12/29/24 05:26
12/29/24 08:33
Laboratory Results
12/28/24 12/29/24 12/29/24
16:51 00:11 03:13
PT 14.3
INR 1.08
APTT 29.3 47.2 H
pH 7.28 L 7.49 H
pCO2 28 L 30 L
pO2 168 H 160 H
HCO3 13.2 L* 22.9
O2 Delivery Level
12/29/24 12/29/24
05:27 12:00
PT
INR
APTT 132.8 H Cancelled
pH
pCO2
pO2
HCO3
O2 Delivery Level
Microbiology
12/28/24 15:41 Nasal Swab Influenza Types A & B (JUANPABLO) - Final
Negative for Influenza A & B, NAAT
Negative results must be combined with clinical observations
and patient history.
Nucleic Acid Amplification test (NAAT)performed on the
[employer] platform.
Diagnostic Testing:
Physical Exam
-
HEENT: Normocephalic and Anicteric
Cardiovascular: S1/S2, Regular Rhythm and Peripheral Edema (negative)
Respiratory: Wheeze (negative), Rales (negative), Rhonchi (negative) and Non-Labored Respirations
GI: Soft, Non Distended, Non Tender and Normal Bowel Sounds
Neurology: Awake, Alert and Tremors (negative)
Skin: Warm and Dry
General: Respiratory Distress (negative), Comfortable, Fever (negative) and Chills (negative)
Assessment
-
Assessment: 84-year-old Vietnamese male with PMHx of dementia, HTN, HLD, CKD3a, Hx of TB s/p treatment, and Hx of CVA who p/w SOB, wheezing and found to be hypoxic. EMS administered albuterol + duonebs. Per the family, the pt has become increasingly
weak and confused/acting different and has been difficult to arouse. 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 He did get the flu shot recently. He was initially afebrile, KY 97, RR 25, BP 138/86 and SpO2 85% on room air. Due to
his SOB, he was placed onto BiPAP. Labs showed leukocytosis to 15.2, Hb 11.5, serum HCO3 low at 15, hyponatremic to 118, elevated potassium to 5.7, glucose 213, lactate 8.8, elevated troponin to 8.68, [place] [address]. UA was not
suggestive of a UTI. COVID-19 antigen was negative. Flu swab negative and blood Cx collected. CXR showed pulmonary vascular congestion (mild) with trace left pleural fluid. CT was ordered but he could not lay flat despite BiPAP. EKG showed ST
depressions in infero-lateral leads. Heparin gtt started, given albuterol, decadron, lasix, duonebs and 3%. Then admitted to ICU and Veterinary Surgery Technician service consulted for additional management/recommendations.
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
Impression:
#AMS - due to TME with hyponatremia, in setting of baseline dementia
#Acute cardiogenic pulmonary edema/acute HFmrEF
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
#NSTEMI
#Retrocardiac opacity with concern for PNA (likely aspiration) vs atelectasis
#Hyponatremia - multifactorial from heart failure, reduced oral intake and possibly SIADH due to acute stress
#Anemia
#Lactic acidosis
#Metabolic acidosis with increased AG
#Pre-diabetes with hyperglycemia
#Recent flu shot followed by malaise/generalized weakness
#Dementia
#HTN/HLD
#Hx of TB s/p treatment
Plan:
- Given the patient's elevated trops, echo findings and EKG, this is highly concerning for ACS --> continue heparin drip for NSTEMI
- NPO p MN for possible LHC
- Low dose BB being started by cardiology
- Continue ASA
- LDL: 42 (12/29/2024)
- Continue trending trop until it peaks
- Continue diuresis per nephrology - now on lasix 40mg IV daily
- Continue trending serum sodium, careful not to overcorrect by >8-10 mmol/L in 24 hours, and no more than >16-18 mmol/L in 48 hours
- The urine sodium is high due to lasix administered prior to lab collection
- Urine osmolarity is also low but again this may be due to the lasix effect
- May be a component of SIADH
- TSH and random cortisol are WNL
- Pt going down for CT head given his AMS
- Check CT chest, abdomen, pelvis to evaluate for any other possible infectious foci (given his leukocytosis and fever on evening of 12/28)
- Follow-up procalcitonin
- Continue empiric ABx with Vanc/Zosyn
- Follow up blood Cx; obtain sputum CX if we can collect a decent sample
- UA was not suggestive of infection
- If MRSA swab negative then we can DC IV vanco
- Need to consider additional imaging and interventions if his mental status does not improve --> consider brain MRI + LP
- Maintain SpO2 >90-94%, adjusting supplemental O2 flow rate as tolerated
- Aspiration precautions
- Early diet encouraged however recommend TIME SIGNAL WIRER eval prior to him starting PO diet
- prn nebulized bronchodilators - not currently bronchospastic
- Incentive spirometer encouraged 10x per hour for at least 4 hrs a day
- Maintain MAP>65
- Use vasopressors if needed
- Trend lactate until <2mmol/L
- Trend serum HCO3
- Replete electrolytes with K>4, Mg>2
- Maintain euglycemia with goal BG 140-180; HbA1C: 5.9 - 12/29/2024
- Trend H/H and transfuse if needed to keep Hb>8g/dL; keep plt>20k, unless there is concern for bleeding then keep plt>50k
- DVT ppx: Heparin gtt
If patient's LHC is uneventful, will downgrade out of ICU tomorrow (12/31/2024). Continue ICU level of care for now.
Data:
CXR 12/28/2024: Mild pulmonary vascular congestion. Trace left pleural fluid.
TTE 12/28/2024:
1. Technically difficult study due to patient's critically ill status. Consider contrast for future studies.
2. Mildly reduced left ventricular systolic function. LVEF 40-45%.
3. Possible hypokinesis of the basal to mid inferior/inferolateral wall.
4. No significant valvular disease.
5. PASP 59 mmHg.
6. No prior study available for comparison.
Total time spent today was 76 minutes for this encounter. Time includes reviewing laboratory test/imaging results, reviewing pertinent medical records, obtaining and reviewing medical history, performing an appropriate exam, ordering medications,
tests and procedures. Time also includes documentation of this encounter, coordinating patient care and communicating with other healthcare professionals. Total time does not include separately billed tests performed on this date of service.
--- NOTE | 2024-12-29 08:57 | W.PN.HOSP.TC ---
Today's Communication/Plan
-
see bold
Assessment / Plan
Assessment / Plan
HPI: 84-year-old male with a past medical history of dementia, nonverbal status, hypertension, hyperlipidemia, gastroesophageal reflux disease, and prediabetes was brought in by his daughter for worsening weakness and decreased responsiveness.
Daughter reports that patient has been weak for 1 week, today became severe and he was unable to stand. He was also more lethargic today, and difficult to arouse. Apparently patient had an episode of choking while he ate last Monday. Daughter
denies any fever at home or vomiting. Respiratory failure on BiPAP, troponin 8.68, with [address] depressions in the inferolateral leads. Sodium is 118, potassium 5.7, with a metabolic acidosis.
Assessment/plan:
#Acute hypoxic respiratory failure
#Acute heart failure with mildly reduced ejection fraction
Appreciate ring cutter lathe operator input, status post BiPAP, currently requiring 2L of oxygen, wean as tolerated
Appreciate cardiology and nephrology input, continue IV lasix, started on metoprolol XL 12.5 mg twice daily
Trend creatinine, trend daily weights
#NSTEMI
Appreciate cardiology input, continue IV heparin drip and aspirin, started on metoprolol XL 12.5 mg twice daily
For possible cardiac catheterization tomorrow
#Systemic inflammatory response syndrome
#Lactic acidosis
Patient with fever, Tmax 100.5, as well as leukocytosis
Procalcitonin mildly elevated at 0.59
Urine analysis negative, chest x-ray negative for infection. Blood cultures pending
Start empiric antibiotics with Vanco/Zosyn, follow-up on blood cultures
Continue to trend lactic acid
#Acute on chronic hyponatremia
Appreciate nephrology input, suspect hypervolemic
TSH/Cortisol normal
Sodium 127 today, was 118 upon admission
Continue fluid restriction, IV Lasix, trend sodium
#Altered mental status
#Weakness
Likely due to sodium of 118 upon admission
Mental status back to baseline
Consult PT/OT for weakness
#Hypokalemia
Resolved
#Stage III CKD
Trend Cr
#Glucose intolerance
Hemoglobin A1c 5.9, sliding scale insulin
#Dementia
#Mostly nonverbal status
#Choking episode concerning for dysphagia
N.p.o., SPL
#Gastroesophageal reflux disease
IV PPI
DVT prophylaxis� IV heparin drip
Updated daughters at bedside 12/29
Total time spent to see the patient on the floor, examine the patient, review data and lab results, discuss treatment plan with patient, nursing staff around 55 minutes.
Physical Exam
General: No acute distress
HEENT: Normocephalic, Atraumatic, EOMI, MMM
Respiratory: Bibasilar crackles
Cardiac: Normal S1/S2, Regular Rate and Rhythm
GI: Soft, Nontender, Nondistended, Normal Bowel Sounds
Extremities: No Clubbing, Cyanosis
Mild LE Edema
Neuro: Pleasantly confused
Anticipated Discharge: > 48 hours
Subjective/Interval History
-
Date of Service: December 29, 2024
Objective Data
-
Labs:
Laboratory Results
12/29/24 12/29/24 12/29/24
00:11 03:13 05:26
WBC 15.1 H
Hgb 10.4 L
Hct 29.4 L
Plt Count 139
APTT 47.2 H
HCO3 22.9
Sodium 127 L D Cancelled
Potassium 4.3 Cancelled
Chloride 95 L Cancelled
Carbon Dioxide 19 L Cancelled
BUN 24 H Cancelled
Creatinine 1.3 Cancelled
Glucose 187 H Cancelled
Calcium 7.8 L Cancelled
12/29/24 12/29/24 12/29/24
05:27 06:23 08:33
WBC
Hgb
Hct
Plt Count
APTT 132.8 H
HCO3
Sodium Cancelled Pending
Potassium Cancelled Pending
Chloride Cancelled Pending
Carbon Dioxide Cancelled Pending
BUN Cancelled Pending
Creatinine Cancelled Pending
Glucose Cancelled Pending
Calcium Cancelled Pending
12/29/24 12/29/24
12:00 13:20
WBC
Hgb
Hct
Plt Count
APTT Cancelled Pending
HCO3
Sodium
Potassium
Chloride
Carbon Dioxide
BUN
Creatinine
Glucose
Calcium
Vital Signs:
Vital Signs
Temp Pulse Resp BP Pulse Ox
98.6 F 80 16 116/76 89
12/29/24 08:00 12/29/24 06:00 12/29/24 06:00 12/29/24 06:00 12/29/24 08:06
I&O
12/28/24 12/29/24 12/30/24
06:59 06:59 06:59
Intake Total 1247 / 1327 80 / 80
Output Total 5 / 2425 350 / 350
Balance -828 / -1098 -270 / -270
[2024-12-29] MEDS: PROTONIX IV 40 MG IV (09:02)
[2024-12-29] MEDS: NSS (PRESERVATIVE FREE) 10 ML IV (09:02)
[2024-12-29] MEDS: FLUSH (NSS) 1 FLUSH IV (09:03)
[2024-12-29] MEDS: LASIX 40 MG IV (09:06)
--- NOTE | 2024-12-29 09:30 | PTCARENOTE ---
Rec'd pt at 0800 dozing. Awakens easily to verbal stimuli. Pt with hx of dementia and speaks primarily Arabic. Daughters tend to translate for him. Denies pain. SANTOS but weakly. Occasionally will pick at ECG leads. Skin is lamar wm and dry. L arm with
sl swelling and extensive bruising- per previous shift softer than it had been earlier. + pulses and arm is warm to the touch . Pt did have a previous IV site in his LAC. Respirs are shallow- Rec'd pt on Bipap 12/5 + 3L nc with sats of 99%. Changed
at 0800 to 2l nc with sats of 98%. BRiefly tried RA but sats 89%. Respirs overall are non-labored at rest but does get sl orthopnic. Does have sl coarse and decreased BS throughout with exp wheezing. No cough noted. Monitor SR. VS as documented. +
pulses. Abd is soft with + BS. Thermistor quach in place for yellow urine. IV Bicarb gtt was infusing at 80 ml/hr via RAC IV Site- capped at [address] Hensley orders. Lasix 40 mg IV given as ordered. IV Heparin continues to infuse via RAC IV
Site. Capped ints intact R hand and L hand. Sites wnl. CHG bath given. Mouth and Quach care given. Repositioned. Labs sent per orders. Lactic Acid and BMP Call malone in reach and will update daughter and pt on Plan of care. .
--- NOTE | 2024-12-29 09:33 | PHA.VAN.IN ---
Assessment
- Assessment
Renal Function: Unknown baseline
Maximum Temperature: 100.5 F (CORE)
Concomitant Antimicrobials: PIPERACILLIN/TAZOBACTAM
Plan
- Plan
Initial / Loading Dose: VANCO 1500MG X1
Monitoring: RANDOM 12/30 @0600
Pharmacokinetics Vancomycin I
- -
Patient Age: 84
Patient Sex: Male
Vancomycin Day #: 1
Indication: Other
Requesting Provider: DR. ZAVALETA
Height / Weight:
Height 5 ft 4 in
Actual Weight 55.8 kg
- Vital Signs / Lab Results
Temp Pulse Resp BP Pulse Ox
98.6 F 78 16 107/69 89
12/29/24 08:00 12/29/24 09:06 12/29/24 06:00 12/29/24 09:06 12/29/24 08:06
Lab Results - Hematology
12/28/24 12/29/24
15:41 05:26
WBC 15.2 H 15.1 H
Lab Results - Chemistry
12/28/24 12/29/24 12/29/24
15:41 00:11 05:26
BUN 25 H 24 H Cancelled
Creatinine 1.2 1.3 Cancelled
Estimated Creat Clear 38 34 Cancelled
12/29/24
06:23
BUN Cancelled
Creatinine Cancelled
Estimated Creat Clear Cancelled
12/28/24 12/29/24 12/29/24
18:10 00:11 05:26
Lactic Acid 8.8 H* 8.1 H* 5.7 H*
12/29/24
08:33
Lactic Acid 3.6 H
Lab Results - Urine
12/28/24
17:42
Urine Nitrite (Reflex) Negative
Leukocyte Esterase Rfl Negative
Urine WBC (Reflex) 0-2
Ur Squamous Epith Cells 3-5
Urine Bacteria (Reflex) Few A
Microbiology Results
12/28/24 15:41 Influenza Types A & B (JUANPABLO) - Final
Nasal Swab Negative for Influenza A & B, NAAT
Negative results must be combined with clinical observations
and patient history.
Nucleic Acid Amplification test (NAAT)performed on the
[employer] platform.
[2024-12-29 09:59] LABS: Blood Urea Nitrogen 25 mg/dl (9-20); Calcium 9.1 mg/dl (8.4-10.2); Carbon Dioxide 28 mmol/L (22-30); Chloride 93 mmol/L (98-107); Estimated Creatinine Clearance 37 ml/min; Glucose 125 mg/dl (70-99); HDL Cholesterol 55 mg/dl; LDL Cholesterol, Calculated 42 mg/dl; Magnesium 2.2 mg/dl (1.6-2.3); Potassium 4.3 mmol/L (3.5-5.1); Sodium 127 mmol/L (135-145); Very Low Density Lipoprotein 7 mg/dl (0-30); eGFR > 60.00
[2024-12-29] MEDS: ZOSYN 50 IV ×3 (10:02→23:05)
[2024-12-29 10:09] LABS: Glycohemoglobin (HgbA1c) 5.9 % (4.0-5.6)
[2024-12-29] MEDS: VANCOCIN 530 MG IV (10:59)
--- NOTE | 2024-12-29 11:00 | PTCARENOTE ---
Labs sent as ordered. Remains awake. Daughters at the bedside. Pt does occasionally answer yes and no to them but per the daughters he is not recognizing them. Drs. Pham and Dakota in to see pt and updated. Heparin gtt continues to infuse.
Vancomycin 1500 mg IV hung per md order
--- NOTE | 2024-12-29 11:07 | W.PN.CD ---
Today's Communication / Plan
-
Continue heparin and aspirin for NSTEMI
Start low-dose beta-radha
Trend troponin/ECGs. Possible LHC tomorrow.
Gentle IV diuresis
Impression / Plan
-
84-year-old man with history of hypertension, diabetes, CKD, and dementia who presents with altered mental status. Cardiology is consulted for elevated troponin.
NSTEMI
-Initial troponin 8.6 -> 12.4. ECG with [address] depressions in the lateral leads. He is chest pain-free. No emergent indication for cardiac catheterization.
-Continue medical management with IV heparin and aspirin
-Trend troponins and ECGs every 6 hours
-His daughters are discussing whether or not they want to go forward with cardiac catheterization versus medical management alone
-Will make n.p.o. past midnight just in case
Altered mental status
-Dramatically improved compared to admission.
-Unclear etiology. May be toxic metabolic encephalopathy in the setting of electrolyte derangements. Daughter reports episode of aspiration on Monday so could have an aspiration pneumonia. No hypotension to suggest cardiogenic shock from ACS.
-Continue empiric antibiotics
-Nephrology following for management of electrolyte derangements
Heart failure with mildly reduced ejection fraction
-Unclear chronicity. No prior cardiology studies here and he does not see a emergency room specialist.
-Mild pulmonary edema on chest x-ray with elevated NT proBNP.
-TTE 12/28/2024: LVEF 40-45%, possible hypokinesis of the basal to mid inferior/inferolateral wall, PASP 59 mmHg
-Continue IV diuresis. Decreased to daily dosing given brisk urine output
-GDMT: switch home metoprolol to tartrate to succinate; further GDMT may be limited by low blood pressures
Lactic acidosis with severe electrolyte derangements
-Resolving
Subjective: denies chest pain or shortness of breath. Answers yes/no questions.
Telemetry: normal sinus rhythm, no ectopy
Physical Exam
Vital Signs/Labs
Vital Signs
Temp Pulse Resp BP Pulse Ox
98.6 F 77 15 110/66 99
12/29/24 08:00 12/29/24 10:30 12/29/24 10:30 12/29/24 10:00 12/29/24 10:30
12/28/24 12/29/24 12/30/24
06:59 06:59 06:59
Actual Weight 123 lb 0.287 oz
12/29/24 05:26
PT 14.3 Sec (11.4-14.6) 12/28/24 16:51
INR 1.08 12/28/24 16:51
APTT Cancelled 12/29/24 12:00
Magnesium 2.2 mg/dl (1.6-2.3) 12/29/24 08:33
Triglycerides 37 mg/dl (10-149) 12/29/24 08:33
LDL Cholesterol, Calc 42 mg/dl 12/29/24 08:33
VLDL Cholesterol, Calc 7 mg/dl (0-30) 12/29/24 08:33
HDL Cholesterol 55 mg/dl 12/29/24 08:33
12/28/24
15:41
Iwf-C-Adcsrikybzn Pept 24054
LAB Results
12/28/24 12/28/24 12/28/24
15:41 17:42 20:30
Troponin I 8.680 H* 8.530 H* Cancelled
12/28/24 12/29/24 12/29/24
23:59 00:11 05:26
Troponin I Cancelled 10.700 H* D 12.400 H*
Physical Exam
Constitutional: No acute distress and Comfortable
Cardiovascular: Rhythm & rate is regular, Pedal edema is absent, S1S2 is normal and Murmur/rub/gallop absent
Respiratory: Respiratory effort normal and Crackles Present
Data Reviewed
-
Date of Service: December 29, 2024
Medical Decision Making: Reviewed Test Results, Independent Historian Assessment, Test Interpretation and Review of Case with other Provider
EKG: Tracing Personally Visualized and interpreted
Echo: Tracing Personally Visualized and interpreted and Report Reviewed by me
Labs: Labs Reviewed by me
[2024-12-29 12:10] LABS: Glucose - Point of Care 128 mg/dl (70-99)
--- NOTE | 2024-12-29 12:16 | CM ---
CM met with pt dtglen/Dustin and Yael
Pt resides with his Dustin, her spouse and grandson (9 y/o)
2 SH with 3STE, first floor set up
Pt has a walk in shower with tub seat
Pt ambulates with a rollator and supervision due to falls risks
Family complete all personal care tasks for him due to cognitive impairments
Pt is alert and oriented to family only, no behaviors
Pt is not on home O2 baseline
Family provide 24/ supervision to patient
PCP- India Lee
Rx- [facility]
Pt is Cantonese speaking, not Mongolian- update to admissions
Pt does not understand Indonesian
Family may be interested in hospital bed on dc for assist with transfers
Discharge Disposition- anticipate home, follow for needs, may need hospital bed
--- NOTE | 2024-12-29 12:25 | PTCARENOTE ---
Remains resting - awake. Will try pt on RA - currently sats on RA are 94%. Does have some exp wheezing - mostly noted with exertion-lying flat and turning. VS as documented. Speech therapy to be in to see pt shortly. Baker - urine is pale yellow-
diurising from Lasix. Heparin gtt continues to infuse. Turned and repositioned. Skin care given. MRSA swab sent per MD order. Pt for CT of the Head and Chest this afternoon
[2024-12-29 12:31] LABS: Blood Urea Nitrogen 25 mg/dl (9-20); Calcium 8.7 mg/dl (8.4-10.2); Carbon Dioxide 32 mmol/L (22-30); Chloride 94 mmol/L (98-107); Estimated Creatinine Clearance 34 ml/min; Glucose 130 mg/dl (70-99); Potassium 4.0 mmol/L (3.5-5.1); Sodium 128 mmol/L (135-145); Troponin I 9.560 ng/ml; eGFR 54.51
[2024-12-29 12:52] LABS: Procalcitonin 0.59 ng/ml (0.0-0.25)
--- NOTE | 2024-12-29 14:00 | PTCARENOTE ---
PTT 99.8- Per protocol Heparin gtt remains at 700 units/hr
[2024-12-29 14:06] LABS: APTT 99.8 Sec (23.4-35.0)
--- NOTE | 2024-12-29 14:15 | PTCARENOTE ---
Taken for CT of the Head, Chest and Abdomen. PTT sent at 1330. No other changes. Per pts daughters- Cantonese is the form of Greek language the patient speaks. Follows some basic commands in Cantonese but intermittently at best. Currently Speech
therapy in to see pt
[2024-12-29] MEDS: LOW STRENGTH ASPIRIN 81 MG PO (15:15)
--- NOTE | 2024-12-29 15:22 | PTOTSP ---
Acute Care Evaluation
Pt currently presents with clinical signs of a fairly functional oropharyngeal swallow for his baseline diet consistencies of minced and moist solids with mildly thick liquids without straws. No overt s/s of penetration or aspiration noted at
bedside. However, pt was noted to become dyspneic after multiple sequential sips of mildly thick liquids - cannot rule out silent aspiration at bedside; however, pt may just get dyspneic easily when taking sequential sips (which requires him to hold
his breath for a longer period of time to protect his airway) due to his current acute cardiac and respiratory distress.
Recommendations:
- Initiate PO diet of minced and moist solids with mildly thick liquids with no straws - one sip at a time with frequent breaks between sips.
- Meds whole or crushed in pureed solids or moist foods.
- Aspiration and reflux precautions: HOB upright for all PO intake and for 60 minutes after PO intake; HOB upright at least 30 minutes at night when sleeping; slow intake rate - make sure pt takes breaks between bites/sips to breathe; small
bites/sips; alternate bites/sips; d/c PO intake if pt is in respiratory distress.
- OFFICE COMMUNICATION PROFESSOR to f/u re: diet tolerance, use of compensatory strategies, and to determine if pt would benefit from an updated instrumental swallow study.
--- NOTE | 2024-12-29 15:30 | PTCARENOTE ---
Returned from CT Scan at 1445- tolerated. Speech therapy in to evaluate pt. Recommendations made for Minced and Moist with mildly thick liquids and meds crushed in puree. One bite at a time. Family aware. Pts assessment is unchanged. Remains on 2L
nc with sats of 98%. Pts does tend to have end exp wheezing with eating or any activity. VS as documented. Lactic Acid sent per protocol. Dr. Duke updated on Troponins. Continues to diurese from earlier Lasix. Repositioned. ASA ordered earlier
given crushed in applesauce. Swallowed without difficutly. Family remains at the bedside. Pt remains awake
--- NOTE | 2024-12-29 15:30 | PTCARENOTE ---
Returned from CT Scan at 1415- tolerated. Speech therapy in to evaluate pt. Recommendations made for Minced and Moist with mildly thick liquids and meds crushed in puree. One bite at a time. Family aware and assisted pt in eating some homemade
oatmeal. Pts assessment is unchanged. Remains on 2L nc with sats of 98%. Pts does tend to have end exp wheezing with eating or any activity. VS as documented. Lactic Acid sent per protocol. Dr. Duke updated on Troponins. Ok given to dc further
Troponins. Continues to diurese from earlier Lasix. Repositioned. ASA ordered earlier given crushed in applesauce. Swallowed without difficutly. Family remains at the bedside. Pt remains awake. Heparin gtt continues to infuse at 700 units/hr
--- NOTE | 2024-12-29 17:30 | PTCARENOTE ---
Was resting quietly- then noted to have blood on blankets and gown. Pt pulled out his R hand IV. Site wnl. Respirs unchanged. O2 decreased to 1L nc with sats of 94%. VS as documented. Pt ready to eat dinner. Family at the bedside.
[2024-12-29 17:51] LABS: Glucose - Point of Care 129 mg/dl (70-99)
--- NOTE | 2024-12-29 18:30 | PTCARENOTE ---
Ate good for dinner but does need supervision- he wants to feed himself but will tend to take large spoonfuls with each bite and now swallow before taking the next. No coughing noted. Family helped pt with dinner.
[2024-12-29] MEDS: TOPROL XL 12.5 MG PO (19:39)
[2024-12-29 19:57] LABS: APTT 87.8 Sec (23.4-35.0)
--- NOTE | 2024-12-29 20:55 | PTCARENOTE ---
Received pt resting in bed, attempting to pull quach catheter out. Daughter at bedside. Orders from REEXAMINER to apply B/L hand mitts- applied. Difficult to reorient pt. due to dementia. SANTOS but weak. Bed alarm on for safety. SR on tele. HR 80-90s. BP
110-120s/70-80s. Weak DPs. Afebrile. On 1L NC. Spo2 97%. Lungs coarse throughout. + bowel sounds. Minced/moist diet with nectar thick liquids. Tolerated meds in applesauce without difficulty. Temp sensing quach draining yellow urine - see I&O. LUE
ecchymotic but softer and less edematous than prior. R AC with heparin gtt infusing at 700units/hr. PTT therapeutic. Repeat in AM.
Lactic acid back up to 4.5 - REEXAMINER notified. No new orders at this time.
[2024-12-29 23:19] LABS: Glucose - Point of Care 119 mg/dl (70-99)
[2024-12-30] VITALS (24 sets, daily range): BP systolic 100–132; BP diastolic 58–82; BMI 20.8
--- NOTE | 2024-12-30 00:01 | PTCARENOTE ---
No changes in assessment. Pt. calm but not sleeping yet tonight. NPO at midnight for possible cardiac cath today.
[2024-12-30] MEDS: NOVOLOG FLEXPEN-MODERATE RESISTANCE SC ×4 (00:14→18:27)
[2024-12-30] MEDS: HEPARIN 25000 UNITS/250 ML IV (01:19)
[2024-12-30 03:47] LABS: Venous Blood Gas B.E. 6.4 mmol/L (-4 to +4); Venous Blood Gas O2 Sat % 97.7 %
[2024-12-30 03:51] LABS: Hematocrit 26.5 % (39.0-52.0); Hemoglobin 9.6 g/dL (13.0-18.0); Mean Corp Hgb Conc. 36.2 g/dL (33.0-37.0); Mean Corpuscular Volume 89.5 fL (80.0-94.0); Platelet Count 142 10^3/uL (130-400); Red Cell Dist. Width 12.7 % (11.5-14.5)
[2024-12-30 04:04] LABS: APTT 79.0 Sec (23.4-35.0)
[2024-12-30] MEDS: ZOSYN 50 IV (04:07)
[2024-12-30 04:11] LABS: Blood Urea Nitrogen 33 mg/dl (9-20); Calcium 8.4 mg/dl (8.4-10.2); Carbon Dioxide 30 mmol/L (22-30); Chloride 96 mmol/L (98-107); Estimated Creatinine Clearance 29 ml/min; Glucose 112 mg/dl (70-99); Magnesium 2.3 mg/dl (1.6-2.3); Potassium 4.0 mmol/L (3.5-5.1); Sodium 130 mmol/L (135-145); Uric Acid 3.3 mg/dl (3.5-8.5); eGFR 45.91
--- NOTE | 2024-12-30 04:36 | PTCARENOTE ---
No changes overnight. Attempted on room air - spo2 dipped to 87%. Back on 1L NC. Bathed with CHG. AM labs drawn. Vitals stable
--- NOTE | 2024-12-30 07:59 | PHA.VAN.FU ---
Vancomycin Assessment / Plan
- Assessment
Renal Function: SCR Increasing
WBC's are: Trending Down
In the past 24 hrs, patient has been: Afebrile
Concomitant Antimicrobials: PIPERACILLIN/TAZOBACTAM
- Assessment - Therapeutic Drug Monitoring
Random Level: 14.0 DRAWN ~17HR AFTER PREVIOUS DOSE VANCO 1500MG
- Dosing Plan
Dosing by Level: Re-dose today (VANCO 750MG X1)
- Monitoring Plan
Random Level: 12/31 @0600
- Follow Up
Pharmacy will continue to follow.
Vancomycin Follow UP
- -
Patient Age: 84
Patient Sex: Male
Vancomycin Day #: 2
Indication: Other
Requesting Provider: DR. ZAVALETA
Height / Weight:
Height 5 ft 4 in
Actual Weight 54.9 kg
- Vital Signs / Lab Results
Temp Pulse Resp BP Pulse Ox
98.3 F 68 14 102/63 94
12/30/24 07:35 12/30/24 06:30 12/30/24 06:30 12/30/24 06:00 12/30/24 04:30
Lab Results - Hematology
12/28/24 12/29/24 12/30/24
15:41 05:26 03:36
WBC 15.2 H 15.1 H 14.2 H
Lab Results - Chemistry
12/28/24 12/29/24 12/29/24
15:41 00:11 05:26
BUN 25 H 24 H Cancelled
Creatinine 1.2 1.3 Cancelled
Estimated Creat Clear 38 34 Cancelled
12/29/24 12/29/24 12/29/24
06:23 08:33 11:24
BUN Cancelled 25 H 25 H
Creatinine Cancelled 1.2 1.3
Estimated Creat Clear Cancelled 37 34
12/30/24
03:36
BUN 33 H
Creatinine 1.5 H
Estimated Creat Clear 29
12/28/24 12/29/24 12/29/24
18:10 00:11 05:26
Lactic Acid 8.8 H* 8.1 H* 5.7 H*
12/29/24 12/29/24 12/29/24
08:33 15:24 19:35
Lactic Acid 3.6 H 2.1 H Cancelled
12/29/24 12/30/24
20:03 03:36
Lactic Acid 4.5 H* 1.3
Microbiology Results
12/28/24 19:15 Blood Culture - Preliminary
Blood/Venous No Growth in 24 hours- Final report to follow
12/28/24 18:29 Blood Culture - Preliminary
Blood/Venous No Growth in 24 hours- Final report to follow
12/29/24 12:24 Nasal Screen MRSA (PCR) - Final
Nose MRSA not detected - performed by PCR methodology.
12/28/24 15:41 Influenza Types A & B (JUANPABLO) - Final
Nasal Swab Negative for Influenza A & B, NAAT
Negative results must be combined with clinical observations
and patient history.
Nucleic Acid Amplification test (NAAT)performed on the
[employer] (1[employer]) platform.
Therapeutic Drug Monitoring
Random Vancomycin 14.0 ug/ml 12/30/24 03:36
--- NOTE | 2024-12-30 08:21 | CON.ID ---
Consultation
-
Date/Time Consultation Requested: 12/30/24 6:40
Date/Time Consultation Performed: 12/30/24 8:21
Requesting Provider: Dr Avery
Performing Provider: Dr Durant
Reason for Consultation: Cellulitis
Chief Complaint / Past History
Chief Complaint
weakness
History of Present Illness
Mr Iglesias is an 84 year old male with dementia (nonverbal), lymphedema, treated TB who was brought in on 12/28 by family for decreased responsiveness, inability to stand, difficult to arouse. By report he had an episode of choaking while eating a week
before arrival. Lethargy began the same morning, weakness lasted about 1 week and progressed. History is obtained by chart review and limited by the condition of the patient.
Since arrival here Tmax 100.5, bp overall stable, wbc 15.2 on arrival and 14.2 today, hgb 9.6, plt 142, L shift noted on arrival, Na initially 118, now 130, Cr 1.5 from baseline of 1.3, lactic acid initially 8.1 now 1.3, a1c 5.9, diagnosed with
NSTEMI with peak troponins at 12.4 and depressions in anterior-lateral leads, UA no pyuria, covid ag negative, CT head chronic infarctions and senescent changes, CT c/a/p: notable for thickened urinary bladder with quach in place, indeterminant age
impacted femoral neck fracture, CXR mild pulm vascular congestion, nasal screen for MRSA negative, blood cultures x2 no growth at 24 hours, flu screen negative, LHC is planned for today,
Past History
Additional Past Medical History:
Dementia, HLD, HTN, DM type II, CKD 3a, treated TB, Hx of CVA, Hx of skin cyanosis, GERD
Additional Past Surgical History:
Cataract surgery (bilateral)
Allergy History:
No Known Allergies Allergy (Verified 10/30/23 15:47)
Medications Reviewed: Yes
Social History
Tobacco: Former Smoker
Alcohol: None
Drug: None
Family History
Family History: Not Pertinent
Review of Systems
Review of Systems
could not be obtained due to the condition of the patient
Vital Signs
Temp Pulse Resp BP Pulse Ox
98.3 F 68 14 102/63 94
12/30/24 07:35 12/30/24 06:30 12/30/24 06:30 12/30/24 06:00 12/30/24 04:30
Physical Exam
Physical Exam
Constitutional: No Acute Distress
Cardiovascular: Regular Rate and S1/S2; Negative Murmur or Rub
Pulmonary: Clear and Symmetric; Negative Wheezes, Rales or Rhonchi
Gastrointestinal: Soft, Non Tender, Non Distended and Normal Bowel Sounds
Skin: Warm and Dry; Negative Rash or Jaundice
Wound: Other (abrasions on the lower extremities without tao cellulitis)
Lab / Diagnostic Study Results
12/30/24 03:36
12/30/24 03:36
Abs Immat Gran (auto) 0.1 10^3/uL (0-0.05) H 12/28/24 15:41
Absolute Neuts (auto) 14.1 10^3/uL (1.4-6.5) H 12/28/24 15:41
Absolute Lymphs (auto) 0.3 10^3/uL (1.2-3.4) L 12/28/24 15:41
Absolute Monos (auto) 0.8 10^3/uL (0.1-0.6) H 12/28/24 15:41
Absolute Basos (auto) 0.0 10^3/uL (0-0.2) 12/28/24 15:41
Immature Gran % 0.5 % (0-0.5) 12/28/24 15:41
Neutrophils % 92.4 % (42.2-75.2) H 12/28/24 15:41
Lymphocytes % 1.8 % (20.5-51.1) L 12/28/24 15:41
Monocytes % 5.2 % (1.7-9.3) 12/28/24 15:41
Eosinophils % 0.0 % (0-6) 12/28/24 15:41
Basophils % 0.1 % (0-2) 12/28/24 15:41
PT 14.3 Sec (11.4-14.6) 12/28/24 16:51
INR 1.08 12/28/24 16:51
Lactic Acid 1.3 mmol/L (0.7-2.0) 12/30/24 03:36
Procalcitonin 0.59 ng/ml (0.0-0.25) H 12/29/24 11:24
Ur Squamous Epith Cells 3-5 /LPF (Few) 12/28/24 17:42
probnp [id number]
Microbiology Results
Micro:
12/28/24 19:15 Blood Culture - Preliminary
Blood/Venous No Growth in 24 hours- Final report to follow
12/28/24 18:29 Blood Culture - Preliminary
Blood/Venous No Growth in 24 hours- Final report to follow
12/29/24 12:24 Nasal Screen MRSA (PCR) - Final
Nose MRSA not detected - performed by PCR methodology.
12/28/24 15:41 Influenza Types A & B (JUANPABLO) - Final
Nasal Swab Negative for Influenza A & B, NAAT
Negative results must be combined with clinical observations
and patient history.
Nucleic Acid Amplification test (NAAT)performed on the
[employer] platform.
Assessment / Plan
Sepsis - resolved
Lactic acidosis - resolved
NSTEMI/CHF
Possible Pneumonia
- bilateral atelectasis vs possible pneumonia
- sputum culture if able to obtain one
- mrsa screen negative
- start ceftriaxone/doxcycycline; stop vancomycin/zosyn
- for short course day 2 of 5
[2024-12-30] MEDS: TOPROL XL 12.5 MG PO ×2 (08:56→20:54)
[2024-12-30] MEDS: NSS (PRESERVATIVE FREE) 10 ML IV (08:57)
[2024-12-30] MEDS: LOW STRENGTH ASPIRIN 81 MG PO (08:57)
[2024-12-30] MEDS: PROTONIX IV 40 MG IV (08:57)
--- NOTE | 2024-12-30 09:17 | W.PN.NEPH.PH ---
Today's Communication / Plan
-
hold lasix
Assessment/Plan
-
Impression:
Hypoxic respiratory failure/proBNP 17,400
AR (Positive troponin of [address] depressions)
Hyponatremia
Hyperkalemia
CKD with suspected baseline of 1.5
metabolic acidosis
Plan:
hold lasix today
seems to be euvolemic
family to decide on LHC
Cr is reasonably close to presumed baseline, so could go for [facility] if decided.
follow BMP
maintain quach today
-
-
Date of Service: December 30, 2024
CC / HPI / ROS
-
Chief Complaint:
Hyponatremia
Metabolic acidosis
History of Present Illness:
creatinine up to 1.5
hemodynamically labile, but not on presosrs
sodium up to 130
metabolic acidosis improved
diuresing well with lasix for decompensated CHF
Review of Systems:
non oliguric
no fever
Labs
-
Labs:
WBC 14.2 10^3/uL (4.8-10.8) H 12/30/24 03:36
RBC 2.96 10^6/uL (4.70-6.10) L 12/30/24 03:36
Hgb 9.6 g/dL (13.0-18.0) L 12/30/24 03:36
Hct 26.5 % (39.0-52.0) L 12/30/24 03:36
Plt Count 142 10^3/uL (130-400) 12/30/24 03:36
Sodium 130 mmol/L (135-145) L 12/30/24 03:36
Potassium 4.0 mmol/L (3.5-5.1) 12/30/24 03:36
Chloride 96 mmol/L (98-107) L 12/30/24 03:36
Carbon Dioxide 30 mmol/L (22-30) 12/30/24 03:36
BUN 33 mg/dl (9-20) H 12/30/24 03:36
Creatinine 1.5 mg/dL (0.7-1.3) H 12/30/24 03:36
eGFR 45.91 12/30/24 03:36
Glucose 112 mg/dl (70-99) H 12/30/24 03:36
Calcium 8.4 mg/dl (8.4-10.2) 12/30/24 03:36
Phosphorus 3.3 mg/dl (2.5-4.5) 12/30/24 03:36
Mnk-F-Rergzxvzjhe Pept 65843 pg/ml 12/30/24 03:36
Physical Exam
-
Vital Signs:
Vital Signs
Temp Pulse Resp BP Pulse Ox
98.3 F 68 14 102/63 94
12/30/24 07:35 12/30/24 06:30 12/30/24 06:30 12/30/24 06:00 12/30/24 04:30
Cardiovascular:: Regular rate and rhythm
Respiratory:: Bilateral: Coarse
Lung Excursion:: Normal
Abdomen:: Nontender and Soft
Bowel Sounds:: Normal
Extremity Edema:: None: Bilateral:
--- NOTE | 2024-12-30 09:23 | W.PN.CD ---
Today's Communication / Plan
-
[facility] today
Continue aspirin and heparin
Hold diuresis
Impression / Plan
-
84-year-old man with history of hypertension, diabetes, CKD, and dementia who presents with altered mental status. Cardiology is consulted for elevated troponin.
Teaching Assistant: Will be Dr. Duke
NSTEMI
-This diagnosis is a threat to life. Joanie score 161. He is on IV heparin for NSTEMI which requires frequent monitoring of labs and telemetry.
-Troponin 8.6 -> 12.4 -> 9. ECG with [address] depressions in the lateral leads. He is chest pain-free. No emergent indication for cardiac catheterization.
-LDL 42. Will need statin if he has obstructive CAD.
-Continue IV heparin, aspirin, and metoprolol 12.5 mg twice daily.
-[facility] today
Altered mental status
-Dramatically improved compared to admission.
-Unclear etiology. Likely toxic metabolic encephalopathy in the setting of electrolyte derangements. Daughter reports episode of aspiration on Monday so could have an aspiration pneumonia.
-Continue empiric antibiotics
-Nephrology following for management of electrolyte derangements
Heart failure with mildly reduced ejection fraction
-Unclear chronicity. No prior cardiology studies here and he does not see a instructor pilot.
-Mild pulmonary edema on chest x-ray with elevated NT proBNP.
-TTE 12/28/2024: LVEF 40-45%, possible hypokinesis of the basal to mid inferior/inferolateral wall, PASP 59 mmHg
-Hold IV diuresis with rising creatinine
-GDMT: switch home metoprolol to tartrate to succinate; further GDMT may be limited by low blood pressures
Lactic acidosis with severe electrolyte derangements
-Resolving
Telemetry: normal sinus rhythm, rare ectopy
Physical Exam
Vital Signs/Labs
Vital Signs
Temp Pulse Resp BP Pulse Ox
98.3 F 68 14 102/63 94
12/30/24 07:35 12/30/24 06:30 12/30/24 06:30 12/30/24 06:00 12/30/24 04:30
12/29/24 12/30/24 12/31/24
06:59 06:59 06:59
Actual Weight 123 lb 0.287 oz 121 lb 0.54 oz
12/30/24 03:36
12/30/24 03:36
PT 14.3 Sec (11.4-14.6) 12/28/24 16:51
INR 1.08 12/28/24 16:51
APTT 79.0 Sec (23.4-35.0) H 12/30/24 03:36
Magnesium 2.3 mg/dl (1.6-2.3) 12/30/24 03:36
Triglycerides 37 mg/dl (10-149) 12/29/24 08:33
LDL Cholesterol, Calc 42 mg/dl 12/29/24 08:33
VLDL Cholesterol, Calc 7 mg/dl (0-30) 12/29/24 08:33
HDL Cholesterol 55 mg/dl 12/29/24 08:33
12/28/24 12/30/24
15:41 03:36
Gvl-A-Sgxxoppiscc Pept [id number]
LAB Results
12/28/24 12/28/24 12/28/24
15:41 17:42 20:30
Troponin I 8.680 H* 8.530 H* Cancelled
12/28/24 12/29/24 12/29/24
23:59 00:11 00:38
Troponin I Cancelled 10.700 H* D Cancelled
12/29/24 12/29/24
05:26 11:24
Troponin I 12.400 H* 9.560 H*
Physical Exam
Constitutional: No acute distress and Comfortable
Cardiovascular: Rhythm & rate is regular, Pedal edema is absent, S1S2 is normal and Murmur/rub/gallop absent
Respiratory: Respiratory effort normal and Lungs clear to auscul.
Data Reviewed
-
Date of Service: December 30, 2024
Medical Decision Making: Reviewed Test Results, Test Interpretation and Review of Case with other Provider
EKG: Tracing Personally Visualized and interpreted
Echo: Report Reviewed by me
Labs: Labs Reviewed by me
--- NOTE | 2024-12-30 09:52 | W.PN.HOSP.TC ---
Addendum entered and electronically signed by Sean Avery MD 12/30/24 15:00:
Addendum
Right hip impacted fracture, age-indeterminate
Discussed with daughter. Patient has very limited functional capacity, uses a walker but lives at his daughter's house, one floor use. He had a fall in August/September.
End
Original Note:
Today's Communication/Plan
-
f/w cardiology and nephrology recommendations
consulted ID
Will need to verify functional status, will reach out to family, ? Age indeterminant impacted right hip fracture
Assessment / Plan
Assessment / Plan
Physical Exam
General: No acute distress, chronically ill looking,
HEENT: Normocephalic, Atraumatic,
Respiratory: limited, no wheezes
Cardiac: Normal S1/S2,
GI: Soft, Nontender, Nondistended, Normal Bowel Sounds
Extremities: No Clubbing, Cyanosis
Mild LE Edema
Neuro: Pleasantly confused, did not follow commands, positive contractures noted
Psych: calm,
HPI: 84-year-old male with a past medical history of dementia, nonverbal status, hypertension, hyperlipidemia, gastroesophageal reflux disease, and prediabetes was brought in by his daughter for worsening weakness and decreased responsiveness.
Daughter reports that patient has been weak for 1 week, today became severe and he was unable to stand. He was also more lethargic today, and difficult to arouse. Apparently patient had an episode of choking while he ate last Monday. Daughter
denies any fever at home or vomiting. Respiratory failure on BiPAP, troponin 8.68, with [address] depressions in the inferolateral leads. Sodium is 118, potassium 5.7, with a metabolic acidosis.
Assessment/plan:
#Acute hypoxic respiratory failure
#Acute heart failure with mildly reduced ejection fraction
Appreciate vice president safety input, status post BiPAP, currently requiring 2L of oxygen, wean as tolerated
Appreciate cardiology and nephrology input, holding IV Lasix, started on metoprolol XL 12.5 mg twice daily
Trend creatinine, trend daily weights
#NSTEMI
Appreciate cardiology input, continue IV heparin drip and aspirin, started on metoprolol XL 12.5 mg twice daily
For cardiac catheterization today
#Systemic inflammatory response syndrome with TME
CAT head no acute findings, chronic senescent changes and multiple chronic infarcts
#Sepsis POA Lactic acidosis, possible pulmonary source, seems c/w aspiration pneumonia
Patient with fever, Tmax 100.5, as well as leukocytosis
Procalcitonin mildly elevated at 0.59
- seen by Speech, on modified diet now
Urine analysis negative, chest x-ray negative for infection. Blood cultures so far no growth
Consulted ID, appreciate input
#Acute on chronic hyponatremia
Appreciate nephrology input,
TSH/Cortisol normal
Sodium 118 upon admission
#Altered mental status
#Weakness
Likely due to sodium of 118 upon admission
Mental status back to baseline
Consult PT/OT for weakness
#Hypokalemia
Resolved
#Stage IIIb CKD
Approaching his baseline
NO hematuria
Keep Baker for now
#Glucose intolerance
Hemoglobin A1c 5.9, sliding scale insulin
#Dementia
#Mostly nonverbal status
-History of CVA with residual deficit
- functional paraplegia?
#Gastroesophageal reflux disease
IV PPI
DVT prophylaxis� IV heparin drip
Updated daughters at bedside 12/29
Total time spent to see the patient on the floor, examine the patient, review data and lab results, discuss treatment plan with patient, consultants, nursing staff around 55 minutes.
Anticipated Discharge: > 48 hours
Subjective/Interval History
-
Date of Service: December 30, 2024
No fever
Sodium improved
Objective Data
-
Labs:
Laboratory Results
12/30/24
03:36
WBC 14.2 H
Hgb 9.6 L
Hct 26.5 L
Plt Count 142
APTT 79.0 H
Sodium 130 L
Potassium 4.0
Chloride 96 L
Carbon Dioxide 30
BUN 33 H
Creatinine 1.5 H
Glucose 112 H
Calcium 8.4
Vital Signs:
Vital Signs
Temp Pulse Resp BP Pulse Ox
98.3 F 68 14 102/63 94
12/30/24 07:35 12/30/24 06:30 12/30/24 06:30 12/30/24 06:00 12/30/24 04:30
I&O
12/29/24 12/30/24 12/31/24
06:59 06:59 06:59
Intake Total 1247 / 1327 1344 / 1351
Output Total 2075 / 2425 3530 / 3571 123 / 123
Balance -828 / -1098 -2186 / -2220 -102 / -102
--- NOTE | 2024-12-30 10:53 | W.PN.INTV ---
Today's Communication / Plan
Recommendations
- Patient scheduled for left heart cath
- Can be transferred out of ICU to IVU. Audiovisual Equipment Operator service will sign off, please call as needed
Assessment
-
Assessment: 84-year-old Setswana male with PMHx of dementia, HTN, HLD, CKD3a, Hx of TB s/p treatment, and Hx of CVA who p/w SOB, wheezing and found to be hypoxic. EMS administered albuterol + duonebs. Per the family, the pt has become increasingly
weak and confused/acting different and has been difficult to arouse. 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 He did get the flu shot recently. He was initially afebrile, NV 97, RR 25, BP 138/86 and SpO2 85% on room air. Due to
his SOB, he was placed onto BiPAP. Labs showed leukocytosis to 15.2, Hb 11.5, serum HCO3 low at 15, hyponatremic to 118, elevated potassium to 5.7, glucose 213, lactate 8.8, elevated troponin to 8.68, [place] [address]. UA was not
suggestive of a UTI. COVID-19 antigen was negative. Flu swab negative and blood Cx collected. CXR showed pulmonary vascular congestion (mild) with trace left pleural fluid. CT was ordered but he could not lay flat despite BiPAP. EKG showed ST
depressions in infero-lateral leads. Heparin gtt started, given albuterol, decadron, lasix, duonebs and 3%. Then admitted to ICU and Audiovisual Equipment Operator service consulted for additional management/recommendations.
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
12/30 overview: Patient comfortably sitting in bed, currently requiring soft mittens for restraints. Not requiring any pressor support. MAP is normal, current infusions are only heparin drip. On 1 L supplemental oxygen.
Impression:
#AMS - due to TME with hyponatremia, in setting of baseline dementia
#Acute cardiogenic pulmonary edema/acute HFmrEF
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
#NSTEMI
#Retrocardiac opacity with concern for PNA (likely aspiration) vs atelectasis
#Hyponatremia - multifactorial from heart failure, reduced oral intake and possibly SIADH due to acute stress
#Anemia
#Lactic acidosis
#Metabolic acidosis with increased AG
#Pre-diabetes with hyperglycemia
#Recent flu shot followed by malaise/generalized weakness
#Dementia
#HTN/HLD
#Hx of TB s/p treatment
Plan:
- Given the patient's elevated trops, echo findings and EKG, this is highly concerning for ACS --> continue heparin drip for NSTEMI
- NPO for LHC today
- Low dose BB
- Continue ASA
- LDL: 42 (12/29/2024)
- Can transfer to IVU
- Continue diuresis per nephrology - Lasix being held for 12/30
- [facility] CT reviewed. CT chest more suggestive of pulmonary edema and atelectasis with small pleural effusions rather then pneumonia
- ID service on case.
- Maintain SpO2 >90-94%, adjusting supplemental O2 flow rate as tolerated
- Aspiration precautions
- prn nebulized bronchodilators - not currently bronchospastic
- Incentive spirometer encouraged 10x per hour for at least 4 hrs a day
- Maintain MAP>65
- Use vasopressors if needed
- Trend lactate until <2mmol/L
- Trend serum HCO3
- Replete electrolytes with K>4, Mg>2
- Maintain euglycemia with goal BG 140-180; HbA1C: 5.9 - 12/29/2024
- Trend H/H and transfuse if needed to keep Hb>8g/dL; keep plt>20k, unless there is concern for bleeding then keep plt>50k
- DVT ppx: Heparin gtt
Critical Care time 35 mins -- The patient is admitted for acute critical illness for the treatment of vital organ failure and/or prevention of further life-threatening conditions. Total care includes time spent in review of history, physical exam,
medications, hemodynamic/ventilator parameters, laboratory data, imaging and discussion with house staff, pharmacy, respiratory therapy, chip applying machine tender, and nursing.
Data:
CXR 12/28/2024: Mild pulmonary vascular congestion. Trace left pleural fluid.
TTE 12/28/2024:
1. Technically difficult study due to patient's critically ill status. Consider contrast for future studies.
2. Mildly reduced left ventricular systolic function. LVEF 40-45%.
3. Possible hypokinesis of the basal to mid inferior/inferolateral wall.
4. No significant valvular disease.
5. PASP 59 mmHg.
6. No prior study available for comparison.
Subjective Dataa
Subjective Data
Date of Service:
Date of Service: December 30, 2024
Subjective:
Patient comfortably sitting in bed in no acute distress.
Review of Systems
General: Other (Limited by underlying cognitive deficit)
Genitourinary: Other
Objective Data
Data Reviewed
Vital Signs / I&O / Oxygen:
Vital Signs
Temp Pulse Resp BP Pulse Ox
98.3 F 68 14 102/63 94
12/30/24 07:35 12/30/24 06:30 12/30/24 06:30 12/30/24 06:00 12/30/24 04:30
Intake and Output
12/29/24 12/30/24 12/31/24
06:59 06:59 06:59
Intake Total 1247 / 1327 1344 / 1351
Output Total 5 / 2425 3530 / 3571 123 / 123
Balance -828 / -1098 -2186 / -2220 -102 / -102
SaO2 94
Nasal Cannula flow liters per 1
minute
Physical Exam
General: Comfortable
HEENT: Normocephalic
Cardiovascular: S1-S2
Respiratory: Clear
GI: Soft and Non Distended
Neurology: Awake and Alert
Skin: Warm
Labs/Micro/Reports
Lab Data
12/30/24 03:36
12/30/24 03:36
Laboratory Results
12/29/24 12/29/24 12/30/24
13:37 19:35 03:36
APTT 99.8 H 87.8 H 79.0 H
Microbiology
12/28/24 19:15 Blood/Venous Blood Culture - Preliminary
No Growth in 24 hours- Final report to follow
12/28/24 18:29 Blood/Venous Blood Culture - Preliminary
No Growth in 24 hours- Final report to follow
12/29/24 12:24 Nose Nasal Screen MRSA (PCR) - Final
MRSA not detected - performed by PCR methodology.
12/28/24 15:41 Nasal Swab Influenza Types A & B (JUANPABLO) - Final
Negative for Influenza A & B, NAAT
Negative results must be combined with clinical observations
and patient history.
Nucleic Acid Amplification test (NAAT)performed on the
[employer] platform.
[2024-12-30] MEDS: ROCEPHIN 2000 MG IV (11:22)
[2024-12-30] MEDS: VIBRAMYCIN 100 MG PO ×2 (11:22→20:54)
[2024-12-30] MEDS: STERILE WATER FOR INJECTION 20 ML IV (11:22)
[2024-12-30 12:06] LABS: Glucose - Point of Care 109 mg/dl (70-99)
--- NOTE | 2024-12-30 13:58 | CM ---
IV/Heparin/Rocephin/Lasix. WBC @ 14.2. Soft mitts as restraint. L heart cath today. Discharge POC: Await therapy eval. Anticipate home with HH vs SNF. Family has been the caretakers.
[2024-12-30] MEDS: SODIUM BICARBONATE 1150 MEQ IV (15:44)
[2024-12-30] MEDS: LIPITOR 40 MG PO (18:24)
[2024-12-30 18:28] LABS: Glucose - Point of Care 94 mg/dl (70-99)
--- NOTE | 2024-12-30 19:43 | PTCARENOTE ---
Patient back from cardiac cath lab nurse. Provider called and updated daughter. Right brachial site intact, no bleeding. Right radial TR band intact, no bleeding. Site checks in place per protocol/ work list. Patient placed in chair position. Daughter at
bedside, feeding patient dinner. Aspiration precautions in place. Baker diuresing clear yellow urine. Pt in no apparent distress. 2L Nc in place. Bilateral mitts in place. Bicarb infusing. Heparin gtt on hold at this time, plan to restart at 2100.
Call malone within reach. Daughter at bedside.
--- NOTE | 2024-12-30 20:59 | ITS.CL.PN ---
Track Layer - Procedure Note
Procedure
Procedure Note:
CARDIAC CATHETERIZATION REPORT
Date of Procedure: 12/30/2024
Referring: Dr. Isreal Duke MD
Indication: NSTEMI
PROCEDURE(S)
1. right heart catheterization
2. left heart catheterization
3. coronary angiography
ACCESS
1. 5F right radial artery (closure: radial band)
2. 5F right antecubital vein (closure: manual hemostasis)
CATHETERS
1. 5F Delano-Antonette
2. 5F JR4
3. 5F JL3.5
4. 5F pigtail
MODERATE SEDATION: 45 minutes of moderate sedation was utilized. An independent medical data entry clerk was present to assist with and help manage the patient's level of consciousness and physiologic status.
HEMODYNAMIC DATA
LV 136/16 (EDP 36) mmHg
AO 133/75 (mean 100) mmHg
RA 16 mmHg
RV 53/7 (EDP 18) mmHg
PA 58/26 (mean 41) mmHg
PCWP 31 mmHg
SaO2 95.3%
SvO2 54.8 %
Hb 9.7 g/dL
CO/CI 3.70/2.34 L/min/m2
SVR 1814 dsc*-5
PVR 2.7 Wood units
CORONARY ANGIOGRAPHY
Dominance: Right
LM: Severe 80% calcific distal stenosis.
LAD: Large vessel giving rise to a small D1, small D2, moderate caliber D3, and moderate caliber D4 before wrapping around the apex. There is a focal segment of severe nodular calcium proximally near the takeoff of D1 and D2, diffuse mild-moderate
calcific disease throughout the proximal to mid vessel, with the mid to distal vessel relatively disease-free.
LCx: Moderate caliber vessel giving rise to a moderate caliber OM1 and moderate caliber OM 2. There is a 90% focal ostial stenosis, 90% stenosis in the proximal OM1, and total occlusion in the mid circumflex with OM 2 filled via left to left
collaterals.
RCA: Totally occluded proximally with [id number] septal collaterals.
AORTOILIOFEMORAL ANGIOGRAPHY
Large-caliber tortuous vessels bilaterally. The left common iliac has a focal segment of folding or napkin ring calcific disease. The right would be more suitable for large-bore access.
RADIATION: dose 203 mGy; DAP 19.7 Gy*cm2; fluoroscopy time 8.6 min
CONCLUSIONS and
1. Severe triple-vessel coronary artery disease as described with RCA LAP HAND TOOL and severe calcific left main bifurcation disease.
2. Severely elevated biventricular filling pressures, severe predominantly post-capillary pulmonary hypertension, and low-normal cardiac output.
3. No aortic stenosis on hemodynamic pullback.
4. Tortuous large caliber iliofemoral vessels suitable fro mechanical circulatory support on the right side.
RECOMMENDATIONS
1. The patient is extremely frail and not a candidate for surgery. Percutaneous intervention would require Impella support which may be challenging given the patient's limited leg mobility. Even with mechanical circulatory support, given the
territory involved and degree of calcification, and the patient's comorbidities, morbidity and mortality would be extremely high. I quoted the family a 10 to 15% risk of life-threatening complications and 5% risk of for percutaneous
intervention. In the setting of him being chest pain-free currently, an initial strategy of medical optimization is appropriate. Should the patient continue to have life-limiting symptoms despite medical optimization, re-discussion of risk-benefit
for percutaneous revascularization can be had.
2. 40 IV lasix to be given tonight. Should continue with further diuresis PRN, ongoing titration of GDMT for heart failure, and aggressive secondary prevention of CAD with statin intensification, ASA, and Plavix load.
3. Stop heparin.
Copy to: Dr. Isreal Duke MD (nuclear fuel enrichment technician); Dr. India Lee MD (PCP)
Signed: Raghav Santos MD, PhD
[2024-12-30 21:21] LABS: Glucose - Point of Care 170 mg/dl (70-99)
[2024-12-31] VITALS (23 sets, daily range): BP systolic 90–131; BP diastolic 40–83; PULSE 71; O2SAT 93–94; BMI 19.4
--- NOTE | 2024-12-31 02:55 | PTCARENOTE ---
Assumed care at 1900. IVU level of care. Patient is awake, non verbal at baseline, unable to assess orientation status. TR band on right wrist at start of shift, removed at 2130. See post cath flowsheet for neurovascular assessment details. Heparin
gtt restarted at approximately 2100. See nursing shift assessment flowsheet for further assessment details.
[2024-12-31 03:39] LABS: Hematocrit 28.1 % (39.0-52.0); Hemoglobin 9.6 g/dL (13.0-18.0); Mean Corp Hgb Conc. 34.2 g/dL (33.0-37.0); Mean Corpuscular Volume 93.0 fL (80.0-94.0); Platelet Count 144 10^3/uL (130-400); Red Cell Dist. Width 13.2 % (11.5-14.5)
[2024-12-31 03:44] LABS: APTT 69.0 Sec (23.4-35.0)
[2024-12-31 03:58] LABS: Blood Urea Nitrogen 38 mg/dl (9-20); Calcium 7.8 mg/dl (8.4-10.2); Carbon Dioxide 34 mmol/L (22-30); Chloride 96 mmol/L (98-107); Estimated Creatinine Clearance 29 ml/min; Glucose 104 mg/dl (70-99); Potassium 4.1 mmol/L (3.5-5.1); Sodium 131 mmol/L (135-145); eGFR 45.91
[2024-12-31] MEDS: NOVOLOG FLEXPEN-MODERATE RESISTANCE SC ×2 (07:44→12:22)
[2024-12-31 07:53] LABS: Glucose - Point of Care 117 mg/dl (70-99)
--- NOTE | 2024-12-31 08:58 | W.PN.CD ---
Addendum entered and electronically signed by Carlos Duke MD 12/31/24 09:13:
On further review of data, he seems to be auto diuresing. Will hold off on diuretics for now.
Original Note:
Today's Communication / Plan
-
Plan for medical management of multivessel CAD
Gentle IV diuresis
Impression / Plan
-
84-year-old man with history of hypertension, diabetes, CKD, and dementia who presents with altered mental status. Cardiology was consulted for elevated troponin. 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
is being medically managed.
Marine Insurance Claim Examiner: Will be Dr. Duke
NSTEMI
-[facility] 12/31/2024: 80% calcified distal left main stenosis, 90% ostial left circumflex, 90% proximal OM1, COLLEGE OR UNIVERSITY DEPARTMENT HEAD mid circumflex, COLLEGE OR UNIVERSITY DEPARTMENT HEAD of RCA
-RHC: RA 16 PA 58/26 (41) PCWP 31 CO/CI 3.7/2.3
-Given his comorbidities and difficulty of intervention, we will proceed with medical management. PCI reserved for life limiting symptoms despite medical optimization.
-Continue aspirin, clopidogrel, metoprolol, and atorvastatin
Heart failure with mildly reduced ejection fraction
-Unclear chronicity. No prior cardiology studies here and he does not see a psychologist chief.
-TTE 12/28/2024: LVEF 40-45%, possible hypokinesis of the basal to mid inferior/inferolateral wall, PASP 59 mmHg
-RHC 12/31/2024: RA 16 PA 58/26 (41) PCWP 31 CO/CI 3.7/2.3
-GDMT: switch home metoprolol to tartrate to succinate; further GDMT limited by low blood pressures and CKD
-Resume IV Lasix 40 mg daily given elevated heart pressures on C yesterday
Altered mental status
-Dramatically improved compared to admission. Likely toxic metabolic encephalopathy in the setting of electrolyte derangements. Daughter reports episode of aspiration on Monday so could have an aspiration pneumonia.
-Continue empiric antibiotics
-Nephrology following for management of electrolyte derangements
Lactic acidosis with severe electrolyte derangements
-Resolving
Telemetry: normal sinus rhythm, rare ectopy
Physical Exam
Vital Signs/Labs
Vital Signs
Temp Pulse Resp BP Pulse Ox
98.6 F 66 15 113/76 100
12/31/24 08:26 12/31/24 06:00 12/31/24 06:00 12/31/24 06:00 12/31/24 06:00
12/30/24 12/31/24 01/01/25
06:59 06:59 06:59
Actual Weight 121 lb 0.54 oz 112 lb 10.499 oz
12/31/24 03:17
12/31/24 03:17
PT 14.3 Sec (11.4-14.6) 12/28/24 16:51
INR 1.08 12/28/24 16:51
APTT 69.0 Sec (23.4-35.0) H 12/31/24 03:17
Magnesium 2.3 mg/dl (1.6-2.3) 12/30/24 03:36
Triglycerides 37 mg/dl (10-149) 12/29/24 08:33
LDL Cholesterol, Calc 42 mg/dl 12/29/24 08:33
VLDL Cholesterol, Calc 7 mg/dl (0-30) 12/29/24 08:33
HDL Cholesterol 55 mg/dl 12/29/24 08:33
12/28/24 12/30/24
15:41 03:36
Hxx-V-Hlewqeirmzj Pept 21296 41029
LAB Results
12/28/24 12/28/24 12/28/24
15:41 17:42 20:30
Troponin I 8.680 H* 8.530 H* Cancelled
12/28/24 12/29/24 12/29/24
23:59 00:11 00:38
Troponin I Cancelled 10.700 H* D Cancelled
12/29/24 12/29/24
05:26 11:24
Troponin I 12.400 H* 9.560 H*
Physical Exam
Constitutional: No acute distress and Comfortable
Cardiovascular: Rhythm & rate is regular, Pedal edema is absent, S1S2 is normal and Murmur/rub/gallop absent
Respiratory: Respiratory effort normal and Lungs clear to auscul.
Other: Cath Site (soft, no swelling or erythema)
Data Reviewed
-
Date of Service: December 31, 2024
Medical Decision Making: Reviewed Test Results, Test Interpretation and Review of Case with other Provider
EKG: Tracing Personally Visualized and interpreted
Echo: Report Reviewed by me
X-Ray/CT/US/MRI/NUC/PET: Image Personally Visualized and interpreted
Labs: Labs Reviewed by me
--- NOTE | 2024-12-31 08:58 | W.PN.HOSP.TC ---
Today's Communication/Plan
-
IVU care
c/w ABx
c/w heart medications
SQ heparin
PT/OT
Assessment / Plan
Assessment / Plan
Physical Exam
General: No acute distress, chronically ill looking,
HEENT: Normocephalic, Atraumatic,
Respiratory: limited, no wheezes
Cardiac: Normal S1/S2,
GI: Soft, Nontender, Nondistended, Normal Bowel Sounds
Extremities: No Clubbing, Cyanosis
Mild LE Edema
Neuro: Pleasantly confused, did not follow commands, positive contractures noted
Psych: calm,
HPI: 84-year-old male with a past medical history of dementia, nonverbal status, hypertension, hyperlipidemia, gastroesophageal reflux disease, and prediabetes was brought in by his daughter for worsening weakness and decreased responsiveness.
Daughter reports that patient has been weak for 1 week, today became severe and he was unable to stand. He was also more lethargic today, and difficult to arouse. Apparently patient had an episode of choking while he ate last Monday. Daughter
denies any fever at home or vomiting. Respiratory failure on BiPAP, troponin 8.68, with [address] depressions in the inferolateral leads. Sodium is 118, potassium 5.7, with a metabolic acidosis.
Assessment/plan:
#Acute hypoxic respiratory failure
#Acute heart failure with mildly reduced ejection fraction
Appreciate range conservationist input, status post BiPAP, currently requiring 2L of oxygen, wean as tolerated
Appreciate cardiology and nephrology input, holding IV Lasix, started on metoprolol XL 12.5 mg twice daily
Trend creatinine, trend daily weights
#NSTEMI
No active chest pain
LHC on 12/30 showed multiple vessel disease: 80% calcified distal left main stenosis, 90% ostial left circumflex, 90% proximal OM1, STITCHER AROUND mid circumflex, STITCHER AROUND of RCA. RHC: RA 16 PA 58/26 (41) PCWP 31 CO/CI 3.7/2.3
Due to multiple comorbidities, difficulty of intervention, crate tier discussed with family and they decided to proceed with medical management.
Transfer out of ICU to IVU
Continue with antiplatelet therapy, aspirin, Plavix, metoprolol and statin therapy.
Appreciate cardiology input.
# Toxic metabolic encephalopathy, patient seems to be approaching baseline.
CAT head no acute findings, chronic senescent changes and multiple chronic infarcts
#Sepsis POA Lactic acidosis, possible pulmonary source, seems c/w aspiration pneumonia
Patient with fever, Tmax 100.5, as well as leukocytosis
Procalcitonin mildly elevated at 0.59
-Good clinical improvement.
- seen by Speech, on modified diet now
Urine analysis negative, chest x-ray negative for infection. Blood cultures so far no growth
Consulted ID, appreciate input
#Acute on chronic hyponatremia
Appreciate nephrology input,
TSH/Cortisol normal
Sodium 118 upon admission
#Altered mental status
#Weakness
Likely due to sodium of 118 upon admission
Mental status back to baseline
Consulted PT/OT for weakness
#Hypokalemia
Resolved
#Stage IIIb CKD
Approaching his baseline
NO hematuria
Keep Baker for now
#Glucose intolerance
Hemoglobin A1c 5.9, sliding scale insulin
#Dementia
#Mostly nonverbal status
-History of CVA with residual deficit
- functional paraplegia?
#Gastroesophageal reflux disease
IV PPI
DVT prophylaxis�subcu heparin
Total time spent to see the patient on the floor, examine the patient, review data and lab results, discuss treatment plan with patient, family, nursing staff around 55 minutes.
Anticipated Discharge: > 48 hours
Subjective/Interval History
-
Date of Service: December 31, 2024
No active chest pain
No fevers
Objective Data
-
Labs:
Laboratory Results
12/31/24 12/31/24
03:17 10:00
WBC 9.0
Hgb 9.6 L
Hct 28.1 L
Plt Count 144
APTT 69.0 H Pending
Sodium 131 L
Potassium 4.1
Chloride 96 L
Carbon Dioxide 34 H
BUN 38 H
Creatinine 1.5 H
Glucose 104 H
Calcium 7.8 L
Vital Signs:
Vital Signs
Temp Pulse Resp BP Pulse Ox
98.6 F 66 15 113/76 100
12/31/24 08:26 12/31/24 06:00 12/31/24 06:00 12/31/24 06:00 12/31/24 06:00
I&O
12/30/24 12/31/24 01/01/25
06:59 06:59 06:59
Intake Total 1344 / 1351 545 / 545
Output Total 3530 / 3571 2263 / 2263
Balance -2186 / -2220 -1718 / -1718
[2024-12-31] MEDS: TOPROL XL 12.5 MG PO ×2 (09:21→19:54)
[2024-12-31] MEDS: NSS (PRESERVATIVE FREE) 10 ML IV (09:22)
[2024-12-31] MEDS: ROCEPHIN 2000 MG IV (09:22)
[2024-12-31] MEDS: PROTONIX IV 40 MG IV (09:22)
[2024-12-31] MEDS: LOW STRENGTH ASPIRIN 81 MG PO (09:22)
[2024-12-31] MEDS: VIBRAMYCIN 100 MG PO ×2 (09:22→19:54)
[2024-12-31] MEDS: STERILE WATER FOR INJECTION 20 ML IV (09:22)
[2024-12-31] MEDS: PLAVIX 75 MG PO (09:22)
--- NOTE | 2024-12-31 09:31 | W.PN.ID1 ---
Date of Service
Date of Service: December 31, 2024
Today's Communication
- switch ceftriaxone to cefdinir, continue doxcycycline - for short course day
- follow up with cardiology/pcp
Assessment / Plan
Sepsis - resolved
Lactic acidosis - resolved
NSTEMI/CHF
Possible Pneumonia
- bilateral atelectasis vs possible pneumonia; leukocytosis resolved today
- sputum culture if able to obtain one - hasnt produced thus far
- switch ceftriaxone to cefdinir, continue doxcycycline - for short course day
- follow up with cardiology/pcp
Chief Complaint
-: Pneumonia
Subjective / Review of Systems
afebrile
bp now stable
tolerating current therapies
Vital Signs / Physical Exam
Vital Signs
Vital Signs
Temp Pulse Resp BP Pulse Ox
98.6 F 61 15 108/65 100
12/31/24 08:26 12/31/24 09:21 12/31/24 06:00 12/31/24 09:21 12/31/24 06:00
Objective Data
Lab Data
Lab Results
12/31/24 03:17
12/31/24 03:17
PT 14.3 Sec (11.4-14.6) 12/28/24 16:51
INR 1.08 12/28/24 16:51
APTT 69.0 Sec (23.4-35.0) H 12/31/24 03:17
Estimated Creat Clear 29 ml/min 12/31/24 03:17
Lactic Acid 1.3 mmol/L (0.7-2.0) 12/30/24 03:36
Most recent labs reviewed.
Micro Results:
12/28/24 19:15 Blood Culture - Preliminary
Blood/Venous No Growth in 48 hours- Final report to follow
12/28/24 18:29 Blood Culture - Preliminary
Blood/Venous No Growth in 48 hours- Final report to follow
12/29/24 12:24 Nasal Screen MRSA (PCR) - Final
Nose MRSA not detected - performed by PCR methodology.
12/28/24 15:41 Influenza Types A & B (JUANPABLO) - Final
Nasal Swab Negative for Influenza A & B, NAAT
Negative results must be combined with clinical observations
and patient history.
Nucleic Acid Amplification test (NAAT)performed on the
[employer] platform.
--- NOTE | 2024-12-31 10:24 | W.PN.NEPH.PH ---
Today's Communication / Plan
-
diurese
Assessment/Plan
-
Impression:
Hypoxic respiratory failure/proBNP 17,400
NH (Positive troponin of [address] depressions)
Hyponatremia
Hyperkalemia
CKD with suspected baseline of 1.5
metabolic acidosis
Plan:
IV lasix
family to decide on coronary intervention
follow BMP
maintain quach today
prognosis guarded
-
-
Date of Service: December 31, 2024
CC / HPI / ROS
-
Chief Complaint:
Hyponatremia
Metabolic acidosis
History of Present Illness:
creatinine stable at 1.5
s/p LHC 12/30 with triple vessel disease, wedge 31
hemodynamically labile, but not on pressors
sodium up to 131
metabolic acidosis improved, now metabolic alkalosis
diuresing well with lasix for decompensated CHF
Review of Systems:
non oliguric
no fever
Labs
-
Labs:
WBC 9.0 10^3/uL (4.8-10.8) 12/31/24 03:17
RBC 3.02 10^6/uL (4.70-6.10) L 12/31/24 03:17
Hgb 9.6 g/dL (13.0-18.0) L 12/31/24 03:17
Hct 28.1 % (39.0-52.0) L 12/31/24 03:17
Plt Count 144 10^3/uL (130-400) 12/31/24 03:17
Sodium 131 mmol/L (135-145) L 12/31/24 03:17
Potassium 4.1 mmol/L (3.5-5.1) 12/31/24 03:17
Chloride 96 mmol/L (98-107) L 12/31/24 03:17
Carbon Dioxide 34 mmol/L (22-30) H 12/31/24 03:17
BUN 38 mg/dl (9-20) H 12/31/24 03:17
Creatinine 1.5 mg/dL (0.7-1.3) H 12/31/24 03:17
eGFR 45.91 12/31/24 03:17
Glucose 104 mg/dl (70-99) H 12/31/24 03:17
Calcium 7.8 mg/dl (8.4-10.2) L 12/31/24 03:17
Phosphorus 3.3 mg/dl (2.5-4.5) 12/30/24 03:36
Npx-E-Dgrivfyluyb Pept 74758 pg/ml 12/30/24 03:36
Physical Exam
-
Vital Signs:
Vital Signs
Temp Pulse Resp BP Pulse Ox
98.6 F 61 15 108/65 100
12/31/24 08:26 12/31/24 09:21 12/31/24 06:00 12/31/24 09:21 12/31/24 06:00
Cardiovascular:: Regular rate and rhythm
Respiratory:: Bilateral: Coarse
Lung Excursion:: Normal
Abdomen:: Nontender and Soft
Bowel Sounds:: Normal
Extremity Edema:: None: Bilateral:
--- NOTE | 2024-12-31 12:00 | PTCARENOTE ---
Assumed care of pt from night RN. Pt awake but nonverbal. NSR on tele. SpO2 96% on 2L nasal cannula. VSS. Heparin gtt discontinued. R radial & brachial sites CDI. Neurovascular checks WDL. LUE ecchymotic. Baker draining clear, yellow urine. Baker
care provided. Family at bedside. Assessment documented. Pt remains IVU level of care. Call malone in reach.
[2024-12-31 12:19] LABS: Glucose - Point of Care 148 mg/dl (70-99)
--- NOTE | 2024-12-31 15:13 | CM ---
Sepsis resolved, Cardiac Cath on 12/30/24 showed severe triple vessel CAD, not a candidate for surgery. Cardio plan for discussion with family for management of CAD. Discharge POC: Awaiting therapy evaluation and recommendations.
--- NOTE | 2024-12-31 15:46 | PTOTSP ---
pt currently requires assistance with simple ADLs, functional transfers. pt demonstrates contractures in BLEs, hips and knees. no acute OT needs identified, will sign off.
[2024-12-31 16:47] LABS: Glucose - Point of Care 161 mg/dl (70-99)
[2024-12-31] MEDS: LIPITOR 40 MG PO (17:14)
[2024-12-31] MEDS: NOVOLOG FLEXPEN-MODERATE RESISTANCE 1 UNITS SC (17:15)
[2024-12-31] MEDS: HEPARIN 5000 UNITS SC (19:54)
[2024-12-31 21:04] LABS: Glucose - Point of Care 144 mg/dl (70-99)
--- NOTE | 2024-12-31 22:53 | PTCARENOTE ---
Patient placed on 2L while sleeping
--- NOTE | 2024-12-31 23:10 | PTCARENOTE ---
Patient received in bed, awake and alert, mon verbal. NSR on monitot, no edema. Lungs diminished on room air. Family feeding patient, ate 100% dinner. Baker catheter draining yellow urine, large area of ecchymosis on left arm. Turned and
repositioned
[2025-01-01] VITALS (11 sets, daily range): BP systolic 98–130; BP diastolic 46–76; BMI 20.3
[2025-01-01 07:01] LABS: Hematocrit 29.5 % (39.0-52.0); Hemoglobin 9.9 g/dL (13.0-18.0); Mean Corp Hgb Conc. 33.6 g/dL (33.0-37.0); Mean Corpuscular Volume 94.2 fL (80.0-94.0); Platelet Count 127 10^3/uL (130-400); Red Cell Dist. Width 13.2 % (11.5-14.5)
[2025-01-01 07:06] LABS: Blood Urea Nitrogen 39 mg/dl (9-20); Calcium 8.2 mg/dl (8.4-10.2); Carbon Dioxide 30 mmol/L (22-30); Chloride 99 mmol/L (98-107); Estimated Creatinine Clearance 30 ml/min; Glucose 123 mg/dl (70-99); Magnesium 2.4 mg/dl (1.6-2.3); Potassium 3.7 mmol/L (3.5-5.1); Sodium 134 mmol/L (135-145); eGFR 49.87
--- NOTE | 2025-01-01 07:30 | PTCARENOTE ---
Received patient from retail chain store area supervisor. patient is alert. he does not speak/understands very minimal [place] citizen per daughter. patient was on 2L HS. He is sinus rhythm on monitor. incontinent of bowel. quach draining yellow urine. Bathed patient,
reviewed orders, assessment as charted.
[2025-01-01 08:19] LABS: Glucose - Point of Care 129 mg/dl (70-99)
--- NOTE | 2025-01-01 08:20 | W.PN.CD ---
Today's Communication / Plan
-
continue IV lasix
Impression / Plan
-
84-year-old man with history of hypertension, diabetes, CKD, and dementia who presents with altered mental status. Cardiology was consulted for elevated troponin. 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
is being medically managed.
Aircraft Seat Upholsterer: Will be Dr. Duke
NSTEMI
-severe, threat to life
-[facility] 12/31/2024: 80% calcified distal left main stenosis, 90% ostial left circumflex, 90% proximal OM1, LOCUM TENENS mid circumflex, LOCUM TENENS of RCA
-[facility]: RA 16 PA 58/26 (41) PCWP 31 CO/CI 3.7/2.3
-Given his comorbidities and difficulty of intervention, we will proceed with medical management. PCI reserved for life limiting symptoms despite medical optimization.
-Continue aspirin, clopidogrel, metoprolol, and atorvastatin
Heart failure with mildly reduced ejection fraction, acute
-Unclear chronicity. No prior cardiology studies here and he does not see a travel registered nurse nicu.
-TTE 12/28/2024: LVEF 40-45%, possible hypokinesis of the basal to mid inferior/inferolateral wall, PASP 59 mmHg
-[facility] 12/31/2024: RA 16 PA 58/26 (41) PCWP 31 CO/CI 3.7/2.3
-GDMT: switch home metoprolol to tartrate to succinate; further GDMT limited by low blood pressures and CKD
-continue lasix 40mg IV daily
-close monitoring of labs/tele
Altered mental status
-Dramatically improved compared to admission. Likely toxic metabolic encephalopathy in the setting of electrolyte derangements. Daughter reports episode of aspiration on Monday so could have an aspiration pneumonia.
-Continue empiric antibiotics
-Nephrology following for management of electrolyte derangements
Lactic acidosis with severe electrolyte derangements
-Resolving
PVC's, bigeminy
-cont metoprolol
Physical Exam
Vital Signs/Labs
Vital Signs
Temp Pulse Resp BP Pulse Ox
98.8 F 87 16 106/69 98
01/01/25 07:36 01/01/25 02:00 01/01/25 02:00 01/01/25 02:00 01/01/25 02:00
12/31/24 01/01/25 01/02/25
06:59 06:59 06:59
Actual Weight 51.1 kg 53.6 kg
01/01/25 06:24
01/01/25 06:24
PT 14.3 Sec (11.4-14.6) 12/28/24 16:51
INR 1.08 12/28/24 16:51
APTT Cancelled 12/31/24 10:00
Magnesium 2.4 mg/dl (1.6-2.3) H 01/01/25 06:24
Triglycerides 37 mg/dl (10-149) 12/29/24 08:33
LDL Cholesterol, Calc 42 mg/dl 12/29/24 08:33
VLDL Cholesterol, Calc 7 mg/dl (0-30) 12/29/24 08:33
HDL Cholesterol 55 mg/dl 12/29/24 08:33
12/28/24 12/30/24
15:41 03:36
Eev-Q-Hxzxtzxzomg Pept [id number]
LAB Results
12/29/24 12/29/24
00:38 11:24
Troponin I Cancelled 9.560 H*
Physical Exam
Constitutional: No acute distress
EENT: Moist mucous membranes
Cardiovascular: Rhythm & rate is regular
Respiratory: Respiratory effort normal
Neuro/Psych: Alert
Data Reviewed
-
Date of Service: January 01, 2025
EKG: Other (Tele: SR, PVC's, bigeminy)
Labs: Labs Reviewed by me
[2025-01-01] MEDS: NOVOLOG FLEXPEN-MODERATE RESISTANCE SC ×2 (08:25→17:34)
[2025-01-01] MEDS: VIBRAMYCIN 100 MG PO ×2 (08:27→20:13)
[2025-01-01] MEDS: PLAVIX 75 MG PO (08:27)
[2025-01-01] MEDS: PROTONIX 40 MG PO (08:27)
[2025-01-01] MEDS: HEPARIN 5000 UNITS SC ×2 (08:27→20:18)
[2025-01-01] MEDS: TOPROL XL 12.5 MG PO ×2 (08:27→20:14)
[2025-01-01] MEDS: LOW STRENGTH ASPIRIN 81 MG PO (08:27)
[2025-01-01] MEDS: OMNICEF 300 MG PO (08:27)
[2025-01-01] MEDS: STERILE WATER FOR INJECTION IV (08:30)
--- NOTE | 2025-01-01 09:14 | W.PN.NEPH.PH ---
Today's Communication / Plan
-
maintain lasix
follow bmp
creatinine at baseline
Assessment/Plan
-
Impression:
Hypoxic respiratory failure/proBNP 17,400
AL (Positive troponin of [address] depressions)
Three-vessel CAD by left heart cath
Hyponatremia
Hyperkalemia
CKD with suspected baseline of 1.5
metabolic acidosis
Plan:
IV lasix continues for net negative balance
creatinine stable at 1.4, nonoliguric ~ 915cc
follow BMP
maintain quach today
-
-
Date of Service: January 01, 2025
CC / HPI / ROS
-
Chief Complaint:
Hyponatremia
Metabolic acidosis
History of Present Illness:
creatinine stable at 1.4
s/p LHC 12/30 with triple vessel disease, wedge 31
hemodynamically labile, but not on pressors
sodium up to 134
metabolic acidosis improved, now metabolic alkalosis
diuresing well with lasix for decompensated CHF
Review of Systems:
non oliguric
no fever
Labs
-
Labs:
WBC 8.8 10^3/uL (4.8-10.8) 01/01/25 06:24
RBC 3.13 10^6/uL (4.70-6.10) L 01/01/25 06:24
Hgb 9.9 g/dL (13.0-18.0) L 01/01/25 06:24
Hct 29.5 % (39.0-52.0) L 01/01/25 06:24
Plt Count 127 10^3/uL (130-400) L 01/01/25 06:24
Sodium 134 mmol/L (135-145) L 01/01/25 06:24
Potassium 3.7 mmol/L (3.5-5.1) 01/01/25 06:24
Chloride 99 mmol/L (98-107) 01/01/25 06:24
Carbon Dioxide 30 mmol/L (22-30) 01/01/25 06:24
BUN 39 mg/dl (9-20) H 01/01/25 06:24
Creatinine 1.4 mg/dL (0.7-1.3) H 01/01/25 06:24
eGFR 49.87 01/01/25 06:24
Glucose 123 mg/dl (70-99) H 01/01/25 06:24
Calcium 8.2 mg/dl (8.4-10.2) L 01/01/25 06:24
Phosphorus 3.3 mg/dl (2.5-4.5) 12/30/24 03:36
Szl-P-Eslulzucfad Pept [id number] pg/ml 12/30/24 03:36
Physical Exam
-
Vital Signs:
Vital Signs
Temp Pulse Resp BP Pulse Ox
98.8 F 87 16 106/69 98
01/01/25 07:36 01/01/25 02:00 01/01/25 02:00 01/01/25 02:00 01/01/25 02:00
Cardiovascular:: Regular rate and rhythm
Respiratory:: Bilateral: Coarse
Lung Excursion:: Normal
Abdomen:: Nontender and Soft
Bowel Sounds:: Normal
Extremity Edema:: None: Bilateral:
Quach Catheter: Yes
--- NOTE | 2025-01-01 09:27 | W.PN.HOSP.TC ---
Today's Communication/Plan
-
DC Baker
ok to go to telemetry
PT/OT
Likely dc in 1 -2 days
Assessment / Plan
Assessment / Plan
Physical Exam
General: No acute distress, chronically ill looking,
HEENT: Normocephalic, Atraumatic,
Respiratory: limited, no wheezes
Cardiac: Normal S1/S2,
GI: Soft, Nontender, Nondistended, Normal Bowel Sounds
Extremities: No Clubbing, Cyanosis
Mild LE Edema
Neuro: Pleasantly confused, did not follow commands, positive contractures noted
Psych: calm,
HPI: 84-year-old male with a past medical history of dementia, nonverbal status, hypertension, hyperlipidemia, gastroesophageal reflux disease, and prediabetes was brought in by his daughter for worsening weakness and decreased responsiveness.
Daughter reports that patient has been weak for 1 week, today became severe and he was unable to stand. He was also more lethargic today, and difficult to arouse. Apparently patient had an episode of choking while he ate last Monday. Daughter
denies any fever at home or vomiting. Respiratory failure on BiPAP, troponin 8.68, with [address] depressions in the inferolateral leads. Sodium is 118, potassium 5.7, with a metabolic acidosis.
Assessment/plan:
#Acute hypoxic respiratory failure
#Acute heart failure with mildly reduced ejection fraction
Appreciate greenhouse or nursery transplanter input, status post BiPAP, currently requiring 2L of oxygen, wean as tolerated
Appreciate cardiology and nephrology input, holding IV Lasix, started on metoprolol XL 12.5 mg twice daily, can do oral 20 mg dose per weight gain.
#NSTEMI
No active chest pain
LHC on 12/30 showed multiple vessel disease: 80% calcified distal left main stenosis, 90% ostial left circumflex, 90% proximal OM1, HARNESS BRUSHER mid circumflex, HARNESS BRUSHER of RCA. R[facility]: RA 16 PA 58/26 (41) PCWP 31 CO/CI 3.7/2.3
Due to multiple comorbidities, difficulty of intervention, band head saw operator discussed with family and they decided to proceed with medical management.
Transfer out of ICU to IVU
Continue with antiplatelet therapy, aspirin, Plavix, metoprolol and statin therapy.
Appreciate cardiology input. d/w band head saw operator, ok to go to Telemetry floor
# Toxic metabolic encephalopathy, patient seems to be approaching baseline.
CAT head no acute findings, chronic senescent changes and multiple chronic infarcts
#Sepsis POA Lactic acidosis, possible pulmonary source, seems c/w aspiration pneumonia
Patient with fever, Tmax 100.5, as well as leukocytosis
Procalcitonin mildly elevated at 0.59
-Good clinical improvement.
- seen by Speech, on modified diet now
Urine analysis negative, chest x-ray negative for infection. Blood cultures so far no growth
Consulted ID, appreciate input
#Acute on chronic hyponatremia
Appreciate nephrology input,
TSH/Cortisol normal
Sodium 118 upon admission
#Altered mental status
#Weakness
Likely due to sodium of 118 upon admission
Mental status back to baseline
Consulted PT/OT for weakness
#Hypokalemia
Resolved
#Stage IIIb CKD
Approaching his baseline
NO hematuria
dc Baker
# Anemia of chronic disease
Thrombocytopenia
#Glucose intolerance
Hemoglobin A1c 5.9, sliding scale insulin
#Dementia
#Mostly nonverbal status
-History of CVA with residual deficit
- functional paraplegia?
#Gastroesophageal reflux disease
IV PPI
DVT prophylaxis�subcu heparin
Total time spent to see the patient on the floor, examine the patient, review data and lab results, discuss treatment plan with patient, family, nursing staff around 55 minutes.
Anticipated Discharge: 24 - 48 hours
Subjective/Interval History
-
Date of Service: January 01, 2025
No events over night
No active chest pain or discomfort
Agitation, pulled IV, Mitts placed
Objective Data
-
Labs:
Laboratory Results
01/01/25
06:24
WBC 8.8
Hgb 9.9 L
Hct 29.5 L
Plt Count 127 L
Sodium 134 L
Potassium 3.7
Chloride 99
Carbon Dioxide 30
BUN 39 H
Creatinine 1.4 H
Glucose 123 H
Calcium 8.2 L
Vital Signs:
Vital Signs
Temp Pulse Resp BP Pulse Ox
98.8 F 87 16 106/69 98
01/01/25 07:36 01/01/25 02:00 01/01/25 02:00 01/01/25 02:00 01/01/25 02:00
I&O
12/31/24 01/01/25 01/02/25
06:59 06:59 06:59
Intake Total 545 / 545
Output Total 2263 / 2263 1050 / 1050
Balance -1718 / -1718 -1050 / -1050
--- NOTE | 2025-01-01 09:40 | W.PN.ID1 ---
Date of Service
Date of Service: January 01, 2025
Today's Communication
- c/w cefdinir, continue doxycycline - for short course
Assessment / Plan
Sepsis - resolved
Lactic acidosis - resolved
NSTEMI/CHF
Possible Pneumonia
- bilateral atelectasis vs possible pneumonia
- sputum culture if able to obtain one - hasnt produced thus far
- c/w cefdinir, continue doxycycline - for short course day
- follow up with cardiology/pcp
Chief Complaint
-: Pneumonia
Subjective / Review of Systems
afebrile
bp stable
nonverbal, no events overnight
Vital Signs / Physical Exam
Vital Signs
Vital Signs
Temp Pulse Resp BP Pulse Ox
98.8 F 87 16 106/69 98
01/01/25 07:36 01/01/25 02:00 01/01/25 02:00 01/01/25 02:00 01/01/25 02:00
Physical Exam
Constitutional: No Acute Distress and Chronically Ill
Cardiovascular: Regular Rate and S1/S2; Negative Murmur or Rub
Pulmonary: Clear and Symmetric; Negative Wheezes or Rales
Gastrointestinal: Soft, Non Tender, Non Distended and Normal Bowel Sounds
Skin: Warm and Dry; Negative Rash or Jaundice
Objective Data
Lab Data
Lab Results
01/01/25 06:24
01/01/25 06:24
PT 14.3 Sec (11.4-14.6) 12/28/24 16:51
INR 1.08 12/28/24 16:51
APTT Cancelled 12/31/24 10:00
Estimated Creat Clear 30 ml/min 01/01/25 06:24
Lactic Acid 1.3 mmol/L (0.7-2.0) 12/30/24 03:36
Most recent labs reviewed.
Micro Results:
12/28/24 19:15 Blood Culture - Preliminary
Blood/Venous No Growth in 72 hours- Final report to follow
12/28/24 18:29 Blood Culture - Preliminary
Blood/Venous No Growth in 72 hours- Final report to follow
12/29/24 12:24 Nasal Screen MRSA (PCR) - Final
Nose MRSA not detected - performed by PCR methodology.
12/28/24 15:41 Influenza Types A & B (JUANPABLO) - Final
Nasal Swab Negative for Influenza A & B, NAAT
Negative results must be combined with clinical observations
and patient history.
Nucleic Acid Amplification test (NAAT)performed on the
[employer] platform.
--- NOTE | 2025-01-01 11:01 | PTCARENOTE ---
patient transferred to 417 bed 1. report given to Will
[2025-01-01 12:13] LABS: Glucose - Point of Care 173 mg/dl (70-99)
--- NOTE | 2025-01-01 13:18 | PTOTSP ---
Addendum entered and electronically signed by ST Milvia 01/01/25 16:20:
Family agreeable to proceed with VSE. Will request order from MD and plan to complete 01/02 as appropriate.
Original Note:
Speech Therapy Follow-Up:
Pt received awake in bed w/ daughter at bedside. Throat clear with IDDSI Level 5 x1. Daughter stated this is not abnormal for pt. Recommend instrumental swallow study to rule out aspiration given PMH and reported infrequent choking
episodes/intermittent coughing/throat clearing. Discussed with daughter at bedside who would like to discuss with her sister. Pt remains at risk for aspiration given dependence for feeding, modified diet, and mentation. However, WBC WNL and most
recent chest imaging not demonstrating PNA.
Recommendations:
1. IDDSI 5 Minced and Moist, tsp of Mildly Thick
2. Medications as best tolerated
3. Full supervision/assistance w/ meals
4. Strategies: liquids via tsp only (no cup or straw sips), small bites, limit distractions
5. Instrumental swallowing assessment if family in agreement
[2025-01-01] MEDS: NOVOLOG FLEXPEN-MODERATE RESISTANCE 1 UNITS SC (13:39)
--- NOTE | 2025-01-01 14:41 | CM ---
Sepsis resolved. B/L atelectasis vs PNA, d/c quach,. Discharge POC: Therapy recommendation for home with 24/7 care. Patient lives with martin, S-I-L and 9 y/o grandson. Family provides 24/7 care. Need to observe for possible HH RN need.
[2025-01-01 17:02] LABS: Glucose - Point of Care 135 mg/dl (70-99)
[2025-01-01] MEDS: LIPITOR 40 MG PO (17:35)
[2025-01-01 21:00] LABS: Glucose - Point of Care 134 mg/dl (70-99)
[2025-01-02] VITALS (7 sets, daily range): BP systolic 111–140; BP diastolic 57–79; PULSE 77; BMI 19.7
[2025-01-02 07:20] LABS: Calcium 8.0 mg/dl (8.4-10.2); Carbon Dioxide 31 mmol/L (22-30); Chloride 99 mmol/L (98-107); Estimated Creatinine Clearance 34 ml/min; Glucose 116 mg/dl (70-99); Potassium 4.0 mmol/L (3.5-5.1); Sodium 133 mmol/L (135-145); eGFR > 60.00
[2025-01-02 07:30] LABS: Blood Urea Nitrogen 33 mg/dl (9-20)
--- NOTE | 2025-01-02 07:55 | W.PN.CD ---
Addendum entered and electronically signed by Conner Narvaez MD 01/02/25 18:12:
discussed with team. will plan to d/c on lasix 20mg daily. follow up in chart. please call us with additional questions.
Addendum entered and electronically signed by Conner Narvaez MD 01/02/25 08:03:
Correction: IV lasix on hold this AM. To discuss with nephrology if agree with starting PO lasix today. Then will trend labs to make sure stable on PO regimen.
Original Note:
Today's Communication / Plan
-
continue IV lasix
assess for PO lasix tomorrow
Impression / Plan
-
84-year-old man with history of hypertension, diabetes, CKD, and dementia who presents with altered mental status. Cardiology was consulted for elevated troponin. 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
is being medically managed.
Hvac Service Manager: Will be Dr. Duke
NSTEMI
-severe, threat to life
-C 12/31/2024: 80% calcified distal left main stenosis, 90% ostial left circumflex, 90% proximal OM1, PRODUCTION POSTING CLERK mid circumflex, PRODUCTION POSTING CLERK of RCA
-[facility]: RA 16 PA 58/26 (41) PCWP 31 CO/CI 3.7/2.3
-Given his comorbidities and difficulty of intervention, we will proceed with medical management. PCI reserved for life limiting symptoms despite medical optimization.
-Continue aspirin, clopidogrel, metoprolol, and atorvastatin
Heart failure with mildly reduced ejection fraction, acute
-Unclear chronicity. No prior cardiology studies here and he does not see a machine setter sheet metal.
-TTE 12/28/2024: LVEF 40-45%, possible hypokinesis of the basal to mid inferior/inferolateral wall, PASP 59 mmHg
-[facility] 12/31/2024: RA 16 PA 58/26 (41) PCWP 31 CO/CI 3.7/2.3
-GDMT: switch home metoprolol to tartrate to succinate; further GDMT limited by low blood pressures and CKD
-continue lasix 40mg IV daily
-close monitoring of labs/tele
Altered mental status
-Dramatically improved compared to admission. Likely toxic metabolic encephalopathy in the setting of electrolyte derangements. Daughter reports episode of aspiration on Monday so could have an aspiration pneumonia.
-Continue empiric antibiotics
-Nephrology following for management of electrolyte derangements
Lactic acidosis with severe electrolyte derangements
-Resolving
PVC's, bigeminy
-cont metoprolol
Physical Exam
Vital Signs/Labs
Vital Signs
Temp Pulse Resp BP Pulse Ox
98.2 F 80 18 111/73 96
01/02/25 03:25 01/02/25 03:25 01/02/25 03:25 01/02/25 03:25 01/02/25 03:25
01/01/25 01/02/25 01/03/25
06:59 06:59 06:59
Actual Weight 53.6 kg 51.965 kg
01/01/25 06:24
01/02/25 06:46
PT 14.3 Sec (11.4-14.6) 12/28/24 16:51
INR 1.08 12/28/24 16:51
APTT Cancelled 12/31/24 10:00
Magnesium 2.4 mg/dl (1.6-2.3) H 01/01/25 06:24
Triglycerides 37 mg/dl (10-149) 12/29/24 08:33
LDL Cholesterol, Calc 42 mg/dl 12/29/24 08:33
VLDL Cholesterol, Calc 7 mg/dl (0-30) 12/29/24 08:33
HDL Cholesterol 55 mg/dl 12/29/24 08:33
12/28/24 12/30/24
15:41 03:36
Poq-C-Uvymbcatcgm Pept [id number]
Physical Exam
Constitutional: No acute distress
EENT: Moist mucous membranes
Cardiovascular: Rhythm & rate is regular, Pedal edema is absent, Systolic murmur absent and JVD present
Respiratory: Respiratory effort normal
Neuro/Psych: Alert
Data Reviewed
-
Date of Service: January 02, 2025
EKG: Other (Tele: sinus, PVC's)
Labs: Labs Reviewed by me
[2025-01-02] MEDS: NOVOLOG FLEXPEN-MODERATE RESISTANCE SC ×2 (08:00→18:05)
[2025-01-02 08:11] LABS: Glucose - Point of Care 118 mg/dl (70-99)
--- NOTE | 2025-01-02 09:50 | PTOTSP ---
Speech Language Pathology
VIDEOFLUOROSCOPIC SWALLOWING EXAMINATION (VSE). Pt with mild oral dysphagia. Pharyngeal phase of swallow WFL. No penetration/aspiration or any significant pharyngeal residue.
Recommend:
(1) Upgrade to IDDSI Level 6 (soft/bite-sized) and thin liquids
(2) Aspiration precautions: ensure oral cavity clear post P.O. intake, slow rate, sit upright
(3) Meds as tolerated
(4) POLE TRUCK DRIVER to sign off. Please reconsult as indicated
--- NOTE | 2025-01-02 10:00 | W.PN.HOSP.TC ---
Today's Communication/Plan
-
dc with [facility]
Assessment / Plan
Assessment / Plan
Physical Exam
General: No acute distress, chronically ill looking,
HEENT: Normocephalic, Atraumatic,
Respiratory: limited, no wheezes
Cardiac: Normal S1/S2,
GI: Soft, Nontender, Nondistended, Normal Bowel Sounds
Extremities: No Clubbing, Cyanosis
Mild LE Edema
Neuro: Pleasantly confused, did not follow commands, positive contractures noted. Unable to respond to integrated campaign manager, per daughter ( cant use it)
Psych: calm,
HPI: 84-year-old male with a past medical history of dementia, nonverbal status, hypertension, hyperlipidemia, gastroesophageal reflux disease, and prediabetes was brought in by his daughter for worsening weakness and decreased responsiveness.
Daughter reports that patient has been weak for 1 week, today became severe and he was unable to stand. He was also more lethargic today, and difficult to arouse. Apparently patient had an episode of choking while he ate last Monday. Daughter
denies any fever at home or vomiting. Respiratory failure on BiPAP, troponin 8.68, with [address] depressions in the inferolateral leads. Sodium is 118, potassium 5.7, with a metabolic acidosis.
Assessment/plan:
#Acute hypoxic respiratory failure
#Acute heart failure with mildly reduced ejection fraction
Appreciate senior risk analyst input, status post BiPAP, currently requiring 2L of oxygen, wean as tolerated
Appreciate cardiology and nephrology input, holding IV Lasix, started on metoprolol XL 12.5 mg twice daily, can do oral 20 mg dose per weight gain.
#NSTEMI
No active chest pain
LHC on 12/30 showed multiple vessel disease: 80% calcified distal left main stenosis, 90% ostial left circumflex, 90% proximal OM1, BAIL AGENT mid circumflex, BAIL AGENT of RCA. RHC: RA 16 PA 58/26 (41) PCWP 31 CO/CI 3.7/2.3
Due to multiple comorbidities, difficulty of intervention, community integration specialist discussed with family and they decided to proceed with medical management.
Transfer out of ICU to IVU
Continue with antiplatelet therapy, aspirin, Plavix, metoprolol and statin therapy.
Appreciate cardiology input. d/w community integration specialist, ok to discharge.
# Toxic metabolic encephalopathy, patient seems to be approaching baseline.
CAT head no acute findings, chronic senescent changes and multiple chronic infarcts
Back to baseline
Video swallow, ok to resume same diet at home.
#Sepsis POA Lactic acidosis, possible pulmonary source, seems c/w aspiration pneumonia
Patient with fever, Tmax 100.5, as well as leukocytosis
Procalcitonin mildly elevated at 0.59
-Good clinical improvement.
Urine analysis negative, chest x-ray negative for infection. Blood cultures so far no growth
Consulted ID, appreciate input
#Acute on chronic hyponatremia
Appreciate nephrology input, ok to dc
TSH/Cortisol normal
Sodium 118 upon admission
#Altered mental status
#Weakness
Likely due to sodium of 118 upon admission
Mental status back to baseline
Consulted PT/OT for weakness, reocmmend home care 24/ hr as prior to admission. Patient gets family care/ support.
#Hypokalemia
Resolved
#Stage IIIb CKD
Approaching his baseline
No hematuria
dc Baker, did void well .
# Anemia of chronic disease
Thrombocytopenia
#Glucose intolerance
Hemoglobin A1c 5.9, sliding scale insulin
#Dementia
#Mostly nonverbal status
-History of CVA with residual deficit
- functional paraplegia?
#Gastroesophageal reflux disease
IV PPI
DVT prophylaxis�subcu heparin
Total discharge time spent to see the patient on the floor, examine the patient, review data and lab results, discuss discharge plan with patient, family, nursing staff around 65 minutes.
Anticipated Discharge: Today
Subjective/Interval History
-
Date of Service: January 02, 2025
No chest pain
No fever
Objective Data
-
Labs:
Laboratory Results
01/02/25
06:46
Sodium 133 L
Potassium 4.0
Chloride 99
Carbon Dioxide 31 H
BUN 33 H
Creatinine 1.2
Glucose 116 H
Calcium 8.0 L
Vital Signs:
Vital Signs
Temp Pulse Resp BP Pulse Ox
98.6 F 78 16 117/78 100
01/02/25 08:46 01/02/25 08:46 01/02/25 08:46 01/02/25 08:46 01/02/25 08:46
I&O
01/01/25 01/02/25 01/03/25
06:59 06:59 06:59
Intake Total 420 / 420
Output Total 1050 / 1050 525 / 525
Balance -1050 / -1050 -105 / -105
[2025-01-02] MEDS: HEPARIN SC (11:01)
[2025-01-02] MEDS: OMNICEF 300 MG PO (11:02)
[2025-01-02] MEDS: PROTONIX 40 MG PO (11:02)
[2025-01-02] MEDS: PLAVIX 75 MG PO (11:02)
[2025-01-02] MEDS: LOW STRENGTH ASPIRIN 81 MG PO (11:02)
[2025-01-02] MEDS: VIBRAMYCIN 100 MG PO ×2 (11:02→21:08)
[2025-01-02] MEDS: STERILE WATER FOR INJECTION IV (11:03)
[2025-01-02] MEDS: TOPROL XL 12.5 MG PO ×2 (11:03→21:08)
--- NOTE | 2025-01-02 11:11 | W.PN.ID1 ---
Date of Service
Date of Service: January 02, 2025
Today's Communication
- c/w cefdinir, continue doxycycline - day 5
Assessment / Plan
Sepsis - resolved
Lactic acidosis - resolved
NSTEMI/CHF
Possible Pneumonia
- bilateral atelectasis vs possible pneumonia
- sputum culture if able to obtain one - hasnt produced thus far
- c/w cefdinir, continue doxycycline - day 5 5
- follow up with cardiology/pcp
Chief Complaint
-: Pneumonia
Subjective / Review of Systems
afebrile
bp stable
no events overnight
Vital Signs / Physical Exam
Vital Signs
Vital Signs
Temp Pulse Resp BP Pulse Ox
98.6 F 78 16 117/78 100
01/02/25 08:46 01/02/25 08:46 01/02/25 08:46 01/02/25 08:46 01/02/25 08:46
Physical Exam
Constitutional: No Acute Distress
Cardiovascular: Regular Rate and S1/S2; Negative Murmur or Rub
Pulmonary: Clear and Symmetric; Negative Wheezes or Rales
Gastrointestinal: Soft, Non Tender, Non Distended and Normal Bowel Sounds
Skin: Warm and Dry; Negative Rash or Jaundice
Objective Data
Lab Data
Lab Results
01/01/25 06:24
01/02/25 06:46
PT 14.3 Sec (11.4-14.6) 12/28/24 16:51
INR 1.08 12/28/24 16:51
APTT Cancelled 12/31/24 10:00
Estimated Creat Clear 34 ml/min 01/02/25 06:46
Lactic Acid 1.3 mmol/L (0.7-2.0) 12/30/24 03:36
Most recent labs reviewed.
Micro Results:
12/28/24 19:15 Blood Culture - Preliminary
Blood/Venous No Growth in 4 days- Final report to follow
12/28/24 18:29 Blood Culture - Preliminary
Blood/Venous No Growth in 4 days- Final report to follow
12/29/24 12:24 Nasal Screen MRSA (PCR) - Final
Nose MRSA not detected - performed by PCR methodology.
12/28/24 15:41 Influenza Types A & B (JUANPABLO) - Final
Nasal Swab Negative for Influenza A & B, NAAT
Negative results must be combined with clinical observations
and patient history.
Nucleic Acid Amplification test (NAAT)performed on the
[employer] platform.
--- NOTE | 2025-01-02 11:21 | CM ---
Addendum entered by Ailyn Narayanan 01/02/25 12:43:
Patient does not ambulate, will require nocturnal O2 testing prior to d/c. Reviewed with Respiratory, update to Hospitalist.
Original Note:
CM reviewed chart, patient for discharge today, daughter bedside.
Daughter agreeable to referral to [facility], options provided, agreeable to [facility], referral placed in [facility].
Patient currently on O2- does not wear home O2 at home, TT to Hospitalist for home O2 test prior to d/c.
Patient will require ambulance home, confirmed address with daughter, three steps to enter home.
CM will continue to follow for all d/c planning needs.
Plan; home with family support, referral to [facility], will require ambulance transport
[place] [facility]: [phone]
[2025-01-02 12:10] LABS: Glucose - Point of Care 162 mg/dl (70-99)
--- NOTE | 2025-01-02 13:38 | W.PN.NEPH.PH ---
Today's Communication / Plan
-
Stable for discharge from nephrology standpoint
Would discharge on either 20 or 40 mg daily LASIX (pcwp was 31
Assessment/Plan
-
Impression:
Hypoxic respiratory failure/proBNP 17,400
[place] (Positive troponin of [address] depressions)
Three-vessel CAD by left heart cath
Hyponatremia
Hyperkalemia
CKD with suspected baseline of 1.5
metabolic acidosis
Plan:
Hyponatremia noted with sodium of 133
creatinine stable at 1.2,
I would think to discharge on 40 mg daily of Lasix but would ask cardiology if they concur, would discharge patient on 50 ounce fluid restriction
follow BMP
-
-
Date of Service: January 02, 2025
CC / HPI / ROS
-
Chief Complaint:
Hyponatremia
Metabolic acidosis
History of Present Illness:
creatinine stable at 1.2
s/p LHC 12/30 with triple vessel disease, wedge 31
hemodynamically labile, but not on pressors
sodium up to 133
metabolic acidosis improved, now metabolic alkalosis
diuresing well with lasix for decompensated CHF
Review of Systems:
non oliguric
no fever
Labs
-
Labs:
WBC 8.8 10^3/uL (4.8-10.8) 01/01/25 06:24
RBC 3.13 10^6/uL (4.70-6.10) L 01/01/25 06:24
Hgb 9.9 g/dL (13.0-18.0) L 01/01/25 06:24
Hct 29.5 % (39.0-52.0) L 01/01/25 06:24
Plt Count 127 10^3/uL (130-400) L 01/01/25 06:24
Sodium 133 mmol/L (135-145) L 01/02/25 06:46
Potassium 4.0 mmol/L (3.5-5.1) 01/02/25 06:46
Chloride 99 mmol/L (98-107) 01/02/25 06:46
Carbon Dioxide 31 mmol/L (22-30) H 01/02/25 06:46
BUN 33 mg/dl (9-20) H 01/02/25 06:46
Creatinine 1.2 mg/dL (0.7-1.3) 01/02/25 06:46
eGFR > 60.00 01/02/25 06:46
Glucose 116 mg/dl (70-99) H 01/02/25 06:46
Calcium 8.0 mg/dl (8.4-10.2) L 01/02/25 06:46
Phosphorus 3.3 mg/dl (2.5-4.5) 12/30/24 03:36
Iyq-I-Dhvzlpcqrge Pept 46579 pg/ml 12/30/24 03:36
Physical Exam
-
Vital Signs:
Vital Signs
Temp Pulse Resp BP Pulse Ox
98.1 F 77 16 115/70 99
01/02/25 11:18 01/02/25 11:18 01/02/25 11:18 01/02/25 11:18 01/02/25 11:18
Cardiovascular:: Regular rate and rhythm
Respiratory:: Bilateral: Coarse
Lung Excursion:: Normal
Abdomen:: Nontender and Soft
Bowel Sounds:: Normal
Extremity Edema:: None: Bilateral:
Baker Catheter: Yes
[2025-01-02] MEDS: NOVOLOG FLEXPEN-MODERATE RESISTANCE 1 UNITS SC (14:12)
[2025-01-02] MEDS: LASIX 20 MG PO (14:12)
[2025-01-02 16:50] LABS: Glucose - Point of Care 134 mg/dl (70-99)
[2025-01-02] MEDS: LIPITOR 40 MG PO (18:05)
[2025-01-02] MEDS: HEPARIN 5000 UNITS SC (21:07)
[2025-01-02 21:31] LABS: Glucose - Point of Care 166 mg/dl (70-99)
--- NOTE | 2025-01-03 02:48 | W.PN.UPDATE ---
Update Note
Progress Note Update
patient keep pulling on tubes, nocturnal studies in place, will place mitts for now
[2025-01-03 02:53] VITALS: BP 116/68
--- NOTE | 2025-01-03 06:03 | RESPNOTE ---
In regards to the nocturnal study, the patient was disconnected during care at approx 0200 and per the nurse the device was not getting a good reading. Upon the therapists arrival, the device had a good pleth and readout. At about 0230, the nurse
notified me that the patient was satting in the low 80s and the patient was placed on 1 LPM nasal cannula. 15 minutes later the nurse notified me that the patientt was 89-92 and that the patient was moved the 2 LPM to get sats of 94-96. Explained
the reasoning of 1 LPM for this test and the patient was placed back on 1 LPM.
[2025-01-03 07:45] VITALS: BP 111/71
[2025-01-03 07:46] LABS: Glucose - Point of Care 124 mg/dl (70-99)
--- NOTE | 2025-01-03 09:20 | W.PN.HOSP.TC ---
Addendum entered and electronically signed by Sean Avery MD 01/03/25 13:44:
Addendum
I met with the daughter shannon at bedside. Discussed discharge directions and recommendations. Daughter ask if this event like heart attack would happen again and what to do. According to the daughter, goal of care remained restorative and full
code. I advised her to call 911 if you suspect a heart attack otherwise might consider alternative like morphine sublingual if he was in distress and under comfort measures.
She also asked about his recovery and possibility of having another heart attack. Unfortunately, patient remains at risk of having cardiovascular event because of his comorbidities, advised her to continue taking his medications and avoid
aspiration event.
She asked if he would be able to travel to [facility] for vacation, I replied ( to avoid flight as patient is not safe to fly ) She verbalized understanding.
End
Original Note:
Today's Communication/Plan
-
dc
Assessment / Plan
Assessment / Plan
Physical Exam
General: No acute distress, chronically ill looking,
HEENT: Normocephalic, Atraumatic,
Respiratory: limited, no wheezes
Cardiac: Normal S1/S2,
GI: Soft, Nontender, Nondistended, Normal Bowel Sounds
Extremities: No Clubbing, Cyanosis
Mild LE Edema
Neuro: Pleasantly confused, did not follow commands, positive contractures noted. Unable to respond to foreign language instructor, per daughter ( cant use it)
Psych: calm,
HPI: 84-year-old male with a past medical history of dementia, nonverbal status, hypertension, hyperlipidemia, gastroesophageal reflux disease, and prediabetes was brought in by his daughter for worsening weakness and decreased responsiveness.
Daughter reports that patient has been weak for 1 week, today became severe and he was unable to stand. He was also more lethargic today, and difficult to arouse. Apparently patient had an episode of choking while he ate last Monday. Daughter
denies any fever at home or vomiting. Respiratory failure on BiPAP, troponin 8.68, with [address] depressions in the inferolateral leads. Sodium is 118, potassium 5.7, with a metabolic acidosis.
Assessment/plan:
#Acute hypoxic respiratory failure
#Acute heart failure with mildly reduced ejection fraction
Appreciate cupola melter input, status post BiPAP, currently requiring 2L of oxygen, wean as tolerated
Appreciate cardiology and nephrology input, started on metoprolol XL 12.5 mg twice daily, can do oral 20 mg dose per weight gain or q 48 hours.
#NSTEMI
No active chest pain
LHC on 12/30 showed multiple vessel disease: 80% calcified distal left main stenosis, 90% ostial left circumflex, 90% proximal OM1, CHIEF WARDEN mid circumflex, CHIEF WARDEN of RCA. RHC: RA 16 PA 58/26 (41) PCWP 31 CO/CI 3.7/2.3
Due to multiple comorbidities, difficulty of intervention, cfo controller discussed with family and they decided to proceed with medical management.
Transfer out of ICU to telemetry
Continue with antiplatelet therapy, aspirin, Plavix, metoprolol and statin therapy.
Appreciate cardiology input. d/w cfo controller, ok to discharge.
# Toxic metabolic encephalopathy, patient seems to be approaching baseline.
CAT head no acute findings, chronic senescent changes and multiple chronic infarcts
Back to baseline
Video swallow, ok to resume same diet at home.
#Sepsis POA Lactic acidosis, possible pulmonary source, seems c/w aspiration pneumonia
Patient with fever, Tmax 100.5, as well as leukocytosis
Procalcitonin mildly elevated at 0.59
-Good clinical improvement.
Urine analysis negative, chest x-ray negative for infection. Blood cultures so far no growth
Consulted ID, appreciate input
#Acute on chronic hyponatremia
Appreciate nephrology input, ok to dc
TSH/Cortisol normal
Sodium 118 upon admission
#Altered mental status
#Weakness
Likely due to sodium of 118 upon admission
Mental status back to baseline
Consulted PT/OT for weakness, reocmmend home care 24/ hr as prior to admission. Patient gets family care/ support.
#Hypokalemia
Resolved
#Stage IIIb CKD
Approaching his baseline
No hematuria
dc Baker, did void well .
# Anemia of chronic disease
Thrombocytopenia
#Glucose intolerance
Hemoglobin A1c 5.9, sliding scale insulin
#Dementia
#Mostly nonverbal status
-History of CVA with residual deficit
- functional paraplegia?
#Gastroesophageal reflux disease
IV PPI
DVT prophylaxis�subcu heparin
Total discharge time spent to see the patient on the floor, examine the patient, review data and lab results, discuss discharge plan with patient, family, nursing staff around 65 minutes.
Anticipated Discharge: Today
Subjective/Interval History
-
Date of Service: January 03, 2025
Objective Data
-
Vital Signs:
Vital Signs
Temp Pulse Resp BP Pulse Ox
98.0 F 90 20 111/71 97
01/03/25 07:45 01/03/25 07:45 01/03/25 07:45 01/03/25 07:45 01/03/25 07:45
I&O
01/02/25 01/03/25 01/04/25
06:59 06:59 06:59
Intake Total 420 / 420 840 / 840
Output Total 525 / 525
Balance -105 / -105 840 / 840
[2025-01-03] MEDS: NOVOLOG FLEXPEN-MODERATE RESISTANCE SC ×2 (10:08→17:14)
[2025-01-03] MEDS: TOPROL XL 12.5 MG PO (10:09)
[2025-01-03] MEDS: HEPARIN 5000 UNITS SC (10:09)
[2025-01-03] MEDS: LOW STRENGTH ASPIRIN 81 MG PO (10:10)
[2025-01-03] MEDS: OMNICEF 300 MG PO (10:10)
[2025-01-03] MEDS: PLAVIX 75 MG PO (10:10)
[2025-01-03] MEDS: PROTONIX 40 MG PO (10:10)
[2025-01-03] MEDS: LASIX 20 MG IV (10:46)
[2025-01-03] MEDS: STERILE WATER FOR INJECTION IV (11:05)
[2025-01-03 11:30] VITALS: BP 112/67
[2025-01-03 11:55] LABS: Glucose - Point of Care 173 mg/dl (70-99)
--- NOTE | 2025-01-03 12:59 | CM ---
Addendum entered by Ailyn Narayanan 01/03/25 13:02:
Please fax d/c instructions to [facility]: [phone]
Original Note:
CM reviewed chart, reviewed with Hospitalist, patient for d/c today.
Patient does qualify for nocturnal O2- referral faxed to [facility]- received and will deliver once patient discharged home.
Daughter seen bedside, aware to call [facility] once home, provided with number.
Update to [facility] on d.c
Daughter provided with Palliative care resources.
Pt will require ambulance transport home.
Plan; home with family, [facility], [facility] to deliver nocturnal O2
[2025-01-03] MEDS: NOVOLOG FLEXPEN-MODERATE RESISTANCE 1 UNITS SC (13:01)
--- NOTE | 2025-01-03 13:22 | W.PN.ID1 ---
Date of Service
Date of Service: January 03, 2025
Today's Communication
completed antibiotics - stopped
Assessment / Plan
Sepsis - resolved
Lactic acidosis - resolved
NSTEMI/CHF
Possible Pneumonia
- completed cefdinir, doxycycline
- follow up with cardiology/pcp
Chief Complaint
-: Pneumonia
Subjective / Review of Systems
afebrile
bp stable
no events overnight
Vital Signs / Physical Exam
Vital Signs
Vital Signs
Temp Pulse Resp BP Pulse Ox
97.9 F 83 18 112/67 92
01/03/25 11:30 01/03/25 11:30 01/03/25 11:30 01/03/25 11:30 01/03/25 11:30
Physical Exam
Constitutional: No Acute Distress
Cardiovascular: Regular Rate and S1/S2; Negative Murmur or Rub
Pulmonary: Clear and Symmetric; Negative Wheezes or Rales
Gastrointestinal: Soft, Non Tender, Non Distended and Normal Bowel Sounds
Skin: Warm and Dry; Negative Rash or Jaundice
Objective Data
Lab Data
Lab Results
01/01/25 06:24
01/02/25 06:46
PT 14.3 Sec (11.4-14.6) 12/28/24 16:51
INR 1.08 12/28/24 16:51
APTT Cancelled 12/31/24 10:00
Estimated Creat Clear 34 ml/min 01/02/25 06:46
Lactic Acid 1.3 mmol/L (0.7-2.0) 12/30/24 03:36
Most recent labs reviewed.
Micro Results:
12/28/24 19:15 Blood Culture - Final
Blood/Venous No Growth - Final Report
12/28/24 18:29 Blood Culture - Final
Blood/Venous No Growth - Final Report
12/29/24 12:24 Nasal Screen MRSA (PCR) - Final
Nose MRSA not detected - performed by PCR methodology.
12/28/24 15:41 Influenza Types A & B (JUANPABLO) - Final
Nasal Swab Negative for Influenza A & B, NAAT
Negative results must be combined with clinical observations
and patient history.
Nucleic Acid Amplification test (NAAT)performed on the
[employer] platform.
--- NOTE | 2025-01-03 14:42 | W.DCSUMMARY ---
Discharge Summary
Discharge Data
Date of Admission: 12/28/24
Date of Discharge: 01/03/25
-
Pending Results: No
Hospital Course
84 years old male presented to the ER with lethargic, altered mental status and breathing difficulties. Patient was fatigued, episodes of choking on food, wheezing for past 1 week. His daughter noticed him more lethargic, hypotensive, not
responding to his daughter and she called 911. On admission to the ER, he was hypoxic requiring BiPAP, hyponatremia with a serum sodium level of 118 with accompanied hyperkalemia and positive troponin level with EKG changes. Patient met the
criteria of sepsis. He was admitted to ICU. Nephrology was consulted for low sodium and patient was treated as hypervolemic given elevated proBNP of greater than 17,000 and new onset hypoxic respiratory failure in some mild noted CHF findings on
chest x-ray. He was initiated on heparin drip and nitro drip. Hand Splitter was consulted for cardiogenic shock, TN. Patient underwent left heart catheterization that showed severe triple-vessel coronary artery disease. Due to patient's frailty,
comorbidities with limited functional status and underlying dementia, municipal maintenance worker recommended to optimize medical treatment at present time. Patient was started on cardiac medications including aspirin, Plavix, statin therapy. Patient was seen by
infectious disease doctor pulmonary doctor. He was diagnosed with aspiration pneumonia treated with antibiotic. His oxygenation improved. He was noted to need nocturnal oxygen supplementation only. Patient was evaluated by physical therapy and
recommended to continue home care with 24-hour supervision/ care. Daughter met with case resource manager. Patient remained hemodynamically stable and was discharged home in a stable condition.
Discharge Plan
-
Patient Disposition: Home with Home Care
Discharge Diagnosis/Procedures: Non-ST elevation myocardial infarction/multiple vessel disease: You are seen by municipal maintenance worker and hand splitter. We made changes to your blood pressure medication/cholesterol medication and antiplatelet. Please follow
the new medication list.
- Hyponatremia, you were seen by electric repair supervisor. Your potassium level improved.
- Suspect aspiration pneumonia/sepsis/lactic acidosis, resolved, finish course of antibiotic. You were seen by ICU doctor and infectious diseases doctor
Diet: As tolerated
Stand Alone Forms: DC Instructions- Cath/EP Lab
Referrals:
Lonnie Vargas MD [Active, Orthopedics] - in one to two weeks
Referral Note: Impacted fracture of the right femoral neck, age indeterminate.
Kayla Rapp CRNP [Specified Professional Personl, Cardiology] - 01/20/25 10:00 am
India Lee MD [Primary Care Provider, Family Practice] - in one to two weeks
Prescriptions:
New
atorvastatin 40 mg Tablet
40 mg PO QPM Qty: 30 0RF
doxycycline hyclate 100 mg Capsule
100 mg PO Q12 Qty: 6 0RF
clopidogrel 75 mg Tablet
75 mg PO DAILY Qty: 30 0RF
cefdinir 300 mg Capsule
300 mg PO DAILY Qty: 3 0RF
furosemide [Lasix] 20 mg tablet
20 mg PO Q OTHER DAY Qty: 15 0RF
metoprolol succinate [Toprol XL] 25 mg tablet extended release 24 hr
12.5 mg PO BID 90 Days Qty: 90 0RF
Continued
metformin 500 mg tablet
500 mg PO DAILY
terazosin 1 mg capsule
1 mg PO HS
aspirin 81 mg tablet,delayed release (DR/EC)
81 mg PO DAILY
pantoprazole 40 mg tablet,delayed release (DR/EC)
40 mg PO DAILY
memantine 10 mg tablet
10 mg PO DAILY
Discontinued
simvastatin 10 mg tablet
10 mg PO DAILY
dipyridamole 75 mg tablet
75 mg PO BID
metoprolol tartrate 25 mg tablet
12.5 mg PO BID
Discharge Orders:
Discharge Patient (As Directed); Ordered 01/03/25
Ordered By: Sean Avery
Discharge Date and Time
Print Language: Mandarin Yoruba
[2025-01-03 15:45] VITALS: BP 116/63
[2025-01-03 16:43] LABS: Glucose - Point of Care 123 mg/dl (70-99)
--- NOTE | 2025-01-03 16:49 | W.PN.NEPH.PH ---
Today's Communication / Plan
-
ok for d/c
Assessment/Plan
-
Impression:
Hypoxic respiratory failure/proBNP 17,400
[place] (Positive troponin of [address] depressions)
Three-vessel CAD by left heart cath
Hyponatremia
Hyperkalemia
CKD with suspected baseline of 1.5
metabolic acidosis
Plan:
Hyponatremia noted with sodium of 133 on 01/02
no labs today
hemodynamically stable
stable renal function
lasix dosing per cards
follow BMP in 1week with pCP
nephro if needed
d/w daughter at bedside
-
-
Date of Service: January 03, 2025
CC / HPI / ROS
-
Chief Complaint:
Hyponatremia
Metabolic acidosis
History of Present Illness:
creatinine stable at 1.2, no labs today
s/p LHC 12/30 with triple vessel disease, wedge 31
hemodynamically labile, but not on pressors
sodium up to 133
metabolic acidosis improved, now metabolic alkalosis
diuresing well with lasix for decompensated CHF
Review of Systems:
non oliguric
no fever
Labs
-
Labs:
WBC 8.8 10^3/uL (4.8-10.8) 01/01/25 06:24
RBC 3.13 10^6/uL (4.70-6.10) L 01/01/25 06:24
Hgb 9.9 g/dL (13.0-18.0) L 01/01/25 06:24
Hct 29.5 % (39.0-52.0) L 01/01/25 06:24
Plt Count 127 10^3/uL (130-400) L 01/01/25 06:24
Sodium 133 mmol/L (135-145) L 01/02/25 06:46
Potassium 4.0 mmol/L (3.5-5.1) 01/02/25 06:46
Chloride 99 mmol/L (98-107) 01/02/25 06:46
Carbon Dioxide 31 mmol/L (22-30) H 01/02/25 06:46
BUN 33 mg/dl (9-20) H 01/02/25 06:46
Creatinine 1.2 mg/dL (0.7-1.3) 01/02/25 06:46
eGFR > 60.00 01/02/25 06:46
Glucose 116 mg/dl (70-99) H 01/02/25 06:46
Calcium 8.0 mg/dl (8.4-10.2) L 01/02/25 06:46
Phosphorus 3.3 mg/dl (2.5-4.5) 12/30/24 03:36
Rxe-I-Kpjyujmrvfq Pept 84013 pg/ml 12/30/24 03:36
Physical Exam
-
Vital Signs:
Vital Signs
Temp Pulse Resp BP Pulse Ox
97.5 F 90 20 116/63 93
01/03/25 15:45 01/03/25 15:45 01/03/25 15:45 01/03/25 15:45 01/03/25 15:45
Cardiovascular:: Regular rate and rhythm
Respiratory:: Bilateral: CTA
Lung Excursion:: Normal
Abdomen:: Nontender and Soft
Bowel Sounds:: Normal
Extremity Edema:: None: Bilateral:
Baker Catheter: No
Other Findings::
left elbow brusing
[2025-01-03] MEDS: LIPITOR 40 MG PO (17:14)
[2025-01-03] MEDS: TOPROL XL PO (19:55)
[2025-01-03] MEDS: HEPARIN SC (19:55)
--- NOTE | 2025-01-03 20:10 | PTCARENOTE ---
Patient picked up by ambulance and transported off unit via stretcher at approx 2004. Patient's daughter left with patient's belongings and discharge packet. No questions at time of discharge.
== END 2025-01-03 20:05 | disposition home health service (06) | DRG 871 ==
LOC: 4 WEST ACU 17:18
PROVIDERS: Nurse Practitioner Family; Nurse Practitioner Primary Care; Registered Nurse; Student in an Organized Health Care Education/Training Program; ADMITTING PHYSICIAN Family Medicine; ATTENDING PHYSICIAN Internal Medicine; CONSULT PHYSICIAN Internal Medicine Critical Care Medicine; CONSULT PHYSICIAN Specialist; CONSULT PHYSICIAN Student in an Organized Health Care Education/Training Program; EMERGENCY PHYSICIAN Emergency Medicine; OTHER PHYSICIAN Student in an Organized Health Care Education/Training Program; PRIMARYCARE PHYSICIAN Family Medicine
PROC: 5A09357 Assistance with Respiratory Ventilation, Less than 24 Consecutive Hours, Continuous Positive Airway Pressure (ICD-10-PCS; 2024-12-28)
PROC: B2111ZZ Fluoroscopy of Multiple Coronary Arteries using Low Osmolar Contrast (ICD-10-PCS; 2024-12-30)
PROC: B41D1ZZ Fluoroscopy of Aorta and Bilateral Lower Extremity Arteries using Low Osmolar Contrast (ICD-10-PCS; 2024-12-30)
PROC: 4A023N8 Measurement of Cardiac Sampling and Pressure, Bilateral, Percutaneous Approach (ICD-10-PCS; 2024-12-30)
DX: A41.9 Sepsis, unspecified organism (principal); G92.8 Other toxic encephalopathy; I21.4 Non-ST elevation (NSTEMI) myocardial infarction; J96.01 Acute respiratory failure with hypoxia; J69.0 Pneumonitis due to inhalation of food and vomit; I50.21 Acute systolic (congestive) heart failure; I13.0 Hypertensive heart and chronic kidney disease with heart failure and stage 1 through stage 4 chronic kidney disease, or unspecified chronic kidney disease; E87.20 Acidosis, unspecified; E87.1 Hypo-osmolality and hyponatremia; D69.6 Thrombocytopenia, unspecified; D63.1 Anemia in chronic kidney disease; R73.03 Prediabetes; N18.31 Chronic kidney disease, stage 3a; E78.5 Hyperlipidemia, unspecified; K21.9 Gastro-esophageal reflux disease without esophagitis; D72.829 Elevated white blood cell count, unspecified; E87.5 Hyperkalemia; E87.6 Hypokalemia; F03.90 Unspecified dementia, unspecified severity, without behavioral disturbance, psychotic disturbance, mood disturbance, and anxiety; I27.20 Pulmonary hypertension, unspecified; E74.39 Other disorders of intestinal carbohydrate absorption; I25.10 Atherosclerotic heart disease of native coronary artery without angina pectoris; T50.1X5A Adverse effect of loop [high-ceiling] diuretics, initial encounter; Z11.52 Encounter for screening for COVID-19; Z79.82 Long term (current) use of aspirin; Z79.84 Long term (current) use of oral hypoglycemic drugs; Z79.899 Other long term (current) drug therapy; Z86.73 Personal history of transient ischemic attack (TIA), and cerebral infarction without residual deficits; Z87.891 Personal history of nicotine dependence
CPT/HCPCS: 36600; 51702; 70450; 71045; 71250; 74176; 74230; 75710; 80048; 80061; 80202; 81003; 81015; 82330; 82533; 82570; 82805; 82962; 83036; 83605; 83735; 83880; 83930; 83935; 84100; 84132; 84145; 84300; 84302; 84443; 84484; 84550; 85025; 85027; 85610; 85730; 87040; 87502; 87641; 87811; 92526; 92610; 92611; 93005; 93306; 93460; 93971; 94640; 94644; 94660; 94762; 96365; 96367; 96375; 97163; 97167; 97530; 99152; 99153; 99291; C1769; C1894; Q9967

== ENCOUNTER 2025-01-07 17:58 | Inpatient (IN) | payer OTHER, SELFPAY ==
[2025-01-07] VITALS (10 sets, daily range): BP systolic 90–119; BP diastolic 62–72
[2025-01-07 15:10] LABS: Hematocrit 25.2 % (39.0-52.0); Hemoglobin 8.8 g/dL (13.0-18.0); Mean Corp Hgb Conc. 34.9 g/dL (33.0-37.0); Mean Corpuscular Volume 89.7 fL (80.0-94.0); Nucleated Red Blood Cells % 0 % (-); Platelet Count 202 10^3/uL (130-400); Red Cell Dist. Width 13.5 % (11.5-14.5)
--- NOTE | 2025-01-07 15:15 | ED.GENMED ---
History of Present Illness
General
Chief Complaint: Breathing Problem
Source: records and ambulance crew
Exam Limitations: dementia
Time Seen by Provider: 01/07/25 15:04
Nursing documentation reviewed up to this point in time: agreed with
History of Present Illness
History of Present Illness:
Note:
CHIEF COMPLAINT(S)
Shortness of breath.
HISTORY OF PRESENT ILLNESS
An 84-year-old male was brought in by EMS due to shortness of breath. The patient is nonverbal and cannot communicate regarding any chest pain. Per EMS, an electrocardiogram was performed, revealing signs of ischemia. The patient has a recent
history of cardiac catheterization which showed severe triple vessel coronary artery disease, including the right coronary artery chronic total occlusion. He was determined not to be a candidate for surgical intervention.
PHYSICAL EXAM
General: No acute distress, nonverbal.
Respiratory: Presence of rales bilaterally.
EXTERNAL RECORDS REVIEWED
Recent cardiac catheterization results indicating severe triple vessel coronary disease and a chronic total occlusion of the right coronary artery. The patient was determined not to be a candidate for surgical intervention.
PROBLEM LIST
- Acute: Shortness of breath, signs of ischemia on electrocardiogram, bilateral rales.
- Chronic: Severe triple vessel coronary artery disease, right coronary artery chronic total occlusion.
DIFFERENTIAL DIAGNOSIS
The Differential Diagnosis includes, in no particular order and is not limited to:
- Acute coronary syndrome
- Congestive heart failure
- Pulmonary edema
- Pneumonia
- Chronic obstructive pulmonary disease exacerbation
- Pulmonary embolism
- Pleural effusion
- Aortic stenosis
- Tachyarrhythmia
- Acute respiratory distress syndrome
CARE-UPDATE
01/07/25 - 19:15
Patient continues to experience shortness of breath; unable to obtain a detailed history. Troponin levels are decreasing. Nephrology evaluated the patient and recommends initiating IV Lasix with close monitoring of BMP. Cardiology advises
reassessment of the patient�s condition, management of hyponatremia, and continuation of diuresis treatment.
EKG
My independent EKG interpretation is:
- Time of EKG: Not specified
- Rhythm: Normal sinus rhythm
- Heart Rate: Not specified
- [place] Interval: Not mentioned
- QRS Duration: Not mentioned
- QT Interval: Not mentioned
- [place]: Normal
- Abnormalities Observed:
- ST elevations in separate leads
- ST depression observed
- Concern for lateral subendocardial injury
Disposition:
SUMMARY OF ENCOUNTER
The patient, an 84-year-old male with a history of severe triple vessel coronary artery disease and chronic total occlusion of the right coronary artery, was seen in the emergency department for shortness of breath and suspected acute coronary
syndrome. His condition included signs of ischemia observed via EKG and bilateral rales, and he was suspected to have congestive heart failure exacerbation with potential hyponatremia. The management in the emergency department included evaluation
by cardiology and nephrology, treatment with intravenous furosemide, and monitoring of troponin levels.
PLAN
The patient will be closely monitored with continuous reassessment of his cardiac status, specifically focusing on his troponin trends. Nephrology recommends initiating IV furosemide and continuous monitoring of his basic metabolic panel, due to
potential electrolyte imbalances such as hyponatremia. Cardiology also advised continuation of diuresis treatment and reassessment of the patient�s condition.
INDEPENDENT REVIEW OF LABS AND INTERPRETATION OF TESTS
My independent review of EKG indicates ST elevations in separate leads, ST depression, and concern for lateral subendocardial injury. My independent review of the BMP shows decreasing troponin levels, which is reassuring for no further immediate
ischemic event.
MANAGEMENT OF THE PATIENTS CARE WAS DISCUSSED WITH
Management was coordinated with nephrology for electrolyte monitoring and renal function management, and with cardiology for evaluation and guidance on cardiac care.
MEDICATION RECONCILIATION
Administered intravenous furosemide (Lasix) and held heparin as per the current treatment strategy.
MEDICAL DECISION MAKING
- Complexity of Data Reviewed: Chronic conditions affecting care include severe triple vessel coronary artery disease and right coronary artery chronic total occlusion. Differential diagnosis includes acute coronary syndrome, congestive heart
failure, pulmonary edema, pneumonia, chronic obstructive pulmonary disease exacerbation, pulmonary embolism, pleural effusion, aortic stenosis, tachyarrhythmia, and acute respiratory distress syndrome.
- Data:
Category 1: Tests and documents included the independent review of EKG showing ischemic changes and BMP with decreasing troponin levels. Recent external cardiac catheterization results were also reviewed.
Category 3: Management discussions were held with nephrology for renal function and cardiology for cardiac evaluation, recommendations, and treatment planning regarding hyponatremia and diuresis continuation.
DIAGNOSIS
- Congestive Heart Failure Exacerbation (ICD-10: I50.9)
- Severe Triple Vessel Coronary Artery Disease (ICD-10: I25.10)
- Hyponatremia (ICD-10: E87.1)
Past History
Past History
ED Past Medical History: HTN, NIDDM and Other (Dementia, renal insufficiency)
Phy Exam
Physical Exam
Physical Exam:
.
Scores
Heart Failure Risk
Heart Failure Risk Score: Yes
History of Stroke or TIA: Yes
History of intubation for respiratory distress: No
Heart rate on ED arrival >/= 110: No
SaO2 <90% on arrival on room air: Yes
HR >/=110 during 3min walk test (or too ill to perform test): Yes
ECG has acute ischemic changes: Yes
Urea >/=12mmol/L (BUN 33.6mg/dL): Yes
Serum CO2>/=35mmol/L: No
Troponin I or T elevated to [place] Level (0.4mg/dL): Yes
NT-proBNP >/=5,000ng/L (5,000pg/ml): Yes
HF Risk Score: 10
Admission Status: VERY HIGH RISK 89% Consider Admission to hospital
Course
Orders/Labs/Results
Orders:
Orders
01/07/25 14:51
Electrocardiogram (*1) Urgent
Reason for Study: Shortness of Breath
EKG- Treatment ONCE
01/07/25 14:56
Complete Blood Count/With Diff Urgent
Comprehensive Metabolic Panel Urgent
Ferritin Urgent
Comment: ADD ON
Folate Urgent
Comment: ADD N
Iron Urgent
Comment: ADD ON
LDH Urgent
Comment: ADD ON
Magnesium Urgent
Comment: ADD ON
Phosphorus Urgent
Comment: ADD ON
Pro-BNP [NT-proBNP] Urgent
Total Iron Binding Urgent
Comment: ADD ON
Troponin I Urgent
Vitamin B12 Urgent
Comment: ADD ON
01/07/25 15:22
CR Chest Portable - 1 View Urgent
Comment:
Reason For Exam: short of breath
Reason Study Needs to be Portable: Patient Unstable
01/07/25 16:01
US Periph Venous UPPER Ext RT Urgent
Comment:
Reason For Exam: right arm swelling
01/07/25 16:33
Furosemide [Lasix] 40 mg IV NOW STA
01/07/25 16:56
Bladder Scan As Directed
Follow Bladder Retention/Intermittent Cath Algorithm?: Yes
PRN if no void in __ hours: 6
Frequency: Per Retention Algorithm
If Bladder Scan Result >: 400
then:: Straight cath
Straight Cath As Directed
Frequency: Per Retention Algorithm
Additional Instructions: straight cath as needed per acute urinary retention algorithm for 24 hrs
Additional Instructions: for bladder scan greater than 400 mL
01/07/25 17:05
Weight As Directed
Frequency: Daily
01/07/25 17:10
Add On- LAB Urgent
Tests Added?: iron ferritin tibc, folate b12 mag phos
US Abdomen Limited Routine
Comment:
Reason For Exam: Acute transaminitis
01/07/25 17:23
Midline IV As Directed
01/07/25 17:28
Furosemide [Lasix] 20 mg IV NOW STA
01/07/25 17:41
Admit/Transfer Patient As Directed
Co-Sign Provider:
Level of Care: Inpatient admission
Assign to:: IMU- Intermediate Care
Physician / Group: aislinn funez
Diagnosis: acute chf, hypervolemic hypoNA, hypotension, transami, elaine, anemia
Reason for Hospitalization: acute chf, hypervolemic hypoNA, hypotension, transami, elaine, anemia
Expected length of stay greater than two midnights?: Yes
ELOS- Estimated Length of Stay in days: 4
I certify the patient meets the requirements for IP care: Yes
Code Status As Directed
Resuscitation Status: Full Code
01/07/25 17:44
PRN Pain Medication Management As Directed
May give lesser potent ordered pain med per pt: Yes
preference::
Protocol:: Medication orders for pain may be administered in a
manner that supports deferring to patient preference
when the pt is:
- Requesting an ordered lesser potent pain medication.
Least to most potent pain medications are defined
as: acetaminophen < NSAID < tramadol < opioids
(morphine, oxycodone, hydromorphone).
- Requesting a lesser dose of the same medication IF
ORDERED.
- Requesting a less intrusive route of administration
if both routes are prescribed by the provider (PO <
IV).
01/07/25 17:47
CARDIOLOGY CONSULT Routine
Consulting Provider: Sammy Lombardi
Was physician already notified: Yes
Reason for consult: chf recent cardiogenic shock
NEPHROLOGY CONSULT Routine
Consulting Provider: Jose Aguirre
Was physician already notified: Yes
Reason for consult: hypoNA, elaine, chf
01/07/25 18:03
Lactic Acid Urgent
01/07/25 19:11
Urinalysis Routine
Date Specimen was Collected: 01/07/25
Time Specimen was Collected: 19:09
Urine Creatinine Routine
Date Specimen was Collected: 01/07/25
Time Specimen was Collected: 19:09
Urine Sodium Routine
Date Specimen was Collected: 01/07/25
Time Specimen was Collected: 19:09
01/07/25 21:00
Troponin I Routine
Abnormal Lab Results
01/07/25
14:56
RBC 2.81 L 10^6/uL
(4.70-6.10)
Hgb 8.8 L g/dL
(13.0-18.0)
Hct 25.2 L %
(39.0-52.0)
MCH 31.3 H pg
(27.0-31.0)
Abs Immat Gran (auto) 0.1 H 10^3/uL
(0-0.05)
Absolute Neuts (auto) 8.7 H 10^3/uL
(1.4-6.5)
Absolute Lymphs (auto) 0.9 L 10^3/uL
(1.2-3.4)
Absolute Monos (auto) 0.8 H 10^3/uL
(0.1-0.6)
Immature Gran % 1.3 H %
(0-0.5)
Neutrophils % 82.2 H %
(42.2-75.2)
Lymphocytes % 8.3 L %
(20.5-51.1)
Sodium 119 L* mmol/L
(135-145)
Chloride 90 L mmol/L
(98-107)
BUN 51 H mg/dl
(9-20)
Creatinine 1.8 H mg/dL
(0.7-1.3)
Glucose 170 H mg/dl
(70-99)
Calcium 7.7 L mg/dl
(8.4-10.2)
Iron 44 L ug/dl
(49-181)
TIBC 225 L ug/dl
(261-462)
% Saturation 19 L %
(20-50)
AST 460 H U/L
(17-59)
ALT 317 H U/L
(0-50)
Alkaline Phosphatase 130 H U/L
(38-126)
Lactate Dehydrogenase 742 H U/L
(120-246)
Troponin I 4.330 H* ng/ml
Total Protein 5.4 L g/dl
(6.3-8.2)
Albumin 3.0 L g/dl
(3.5-5.0)
01/07/25 14:56
01/07/25 14:56
Vital Signs
Initial and Last Documented VS:
Initial Vital Signs
Pulse Resp
98 25
01/07/25 14:51 01/07/25 14:51
Last Documented Vital Signs
Temp Pulse Resp BP Pulse Ox
98.6 F 95 18 108/67 100
01/07/25 14:52 01/07/25 19:30 01/07/25 19:30 01/07/25 19:00 01/07/25 19:30
*Pulse Oximetry
SaO2: 98
Nasal Cannula flow liters per minute: 2
Oxygen Mode of Delivery: Room air
Patient hypoxic: no
*Critical Care Note
Total Time (30-74mins, 75-104mins- exclusive of procedures): 35
comment:
Critical care statement: A total of 35 minutes of critical care time was provided for this patient. This includes management of unstable vital signs, evaluation of the patient at bedside, reviewing the patient's pertinent medical records, discussion
with consultants, review of old EKGs and review of pertinent medical records. This time with separate from time utilized to perform the aforementioned documented procedures
ED Attending Note
-
Portions of this chart may have been created with voice recognition software.� Occasional wrong word or��sound alike� substitutions may have occurred due to the inherent limitations of voice recognition software.
Discharge Plan
Departure
Patient Disposition: Admit
Date of Disposition: 01/07/25
Time of Disposition: 16:45
Admit to: IVU
Presentation/result/management discussed w/ accepting MD/DO: Hospitalist
Patient with high blood pressure during this ER visit?: Yes
Condition: Serious
Discharge Problem:
Acute exacerbation of CHF (congestive heart failure), Acute hyponatremia
Interventions
Interventions:
*Risk Screen - Suicide Last Done: 01/07/25 14:52
*General Assessment Last Done: 01/07/25 14:52
*Neglect/Abuse Screening Last Done: 01/07/25 14:52
*ED- Fall Risk Assessment Last Done: 01/07/25 14:52
*ED COVID-19 Vaccine History Last Done: 01/07/25 14:52
*ED Influenza Vaccine History Last Done: 01/07/25 14:52
ED- Cardiac Assessment Last Done: 01/07/25 14:52
ED- Pulmonary Assessment Last Done: 01/07/25 14:52
[2025-01-07 15:28] LABS: ALT (SGPT) 317 U/L (0-50); AST (SGOT) 460 U/L (17-59); Albumin 3.0 g/dl (3.5-5.0); Alkaline Phosphatase 130 U/L (38-126); Blood Urea Nitrogen 51 mg/dl (9-20); Calcium 7.7 mg/dl (8.4-10.2); Carbon Dioxide 22 mmol/L (22-30); Chloride 90 mmol/L (98-107); Glucose 170 mg/dl (70-99); Potassium 4.5 mmol/L (3.5-5.1); Sodium 119 mmol/L (135-145); Total Protein 5.4 g/dl (6.3-8.2); eGFR 36.89
--- NOTE | 2025-01-07 15:37 | CON.CAR ---
Documented by User: Dylan Keith MD, Resident 01/07/25 17:40
Consultation
Consultation Request
Date/Time Consultation Requested: 01/07/2025
Date/Time Consultation Performed: 01/07/2025
Requesting Provider: Jai Holcomb
Performing Provider: Raghav Santos
Reason for Consultation: Acute Exacerbation of Heart Failure
Medical History
-
Chief Complaint: Shortness of Breath
History of Present Illness:
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
in acute exacerbation of HF and w/ NSTEMI who presented due to concerns of worsening shortness of breath.
He received cardiac catheterization during last admission and was found to have significant triple-vessel disease with 80% calcified distal left main stenosis, 90% ostial left circumflex, 90% proximal OM1, REPAIRER HAIRSPRING mid circumflex, REPAIRER HAIRSPRING of RCA. Given his
significant comorbidities and the difficulty of the intervention as well as the elevated risk of vanna and postop complications, family decided to proceed with medical management of patient's symptoms at that time. He was ultimately discharged on
aspirin, clopidogrel, metoprolol and atorvastatin. During that admission he also received IV diuresis and was discharged on 20 mg p.o. Lasix to be taken every other day.
Daughter reports that he remained in intermittent visual distress while at home and taking the medications, though his oxygen saturation never dropped below 90%. She reports intermittent increase in HR to 100-120s during activity, eating, moving and
a few drops into the 50s which worried her. At one point, when asked if his throat hurt he said yes, as she noticed he was struggling to swallow food. She thought she may have felt enlarged lymph nodes and subjective fever, but no elevated
temperature. he had no sick contacts. She reported continued improvement in LE swelling since prior admission. There was no nausea, vomiting, or diarrhea. Daughter was overall concerned at patients continued shortness of breath and fluctuating HR
and so she brought him back to the ED.
Pt was hemodynamically stable and saturating >90% on 2L NC. He was afebrile. ECG on admission showed ST depressions in V3-V6. ProBNP was >27,000, CXR shows progression of findings from prior visit suggestive of worsening pulmonary edema. Chemistry
shows hyponatremia of 119, apprentice/lineman 1.8, transaminitis, troponin of 4.3.
Past Medical History
Past Medical History: Other (See HPI)
Past Surgical History: Other
Social History
Tobacco: Former Smoker
Alcohol: None
Drug: None
Living: With Family
Employment: Retired
Family History
Family History: Reviewed & Not Pertinent
Allergies / Home Medications
Allergy/AdvReac Type Severity Reaction Status Date / Time
No Known Allergies Allergy Verified 10/30/23 15:47
�Medication �Instructions �Recorded �Confirmed �Type
aspirin 81 mg tablet,delayed 81 mg PO DAILY Blood Clot 12/28/24 01/07/25 History
release Prevention/Tx
memantine 10 mg tablet 10 mg PO DAILY Dementia 12/28/24 01/07/25 History
metformin 500 mg tablet 500 mg PO DAILY Diabetes 12/28/24 01/07/25 History
pantoprazole 40 mg tablet,delayed 40 mg PO DAILY Gastrointestinal 12/28/24 01/07/25 History
release Issue
terazosin 1 mg capsule 1 mg PO HS Urinary Issue 12/28/24 01/07/25 History
clopidogrel 75 mg tablet 75 mg PO DAILY #30 tabs 01/02/25 01/07/25 Rx
atorvastatin 40 mg tablet (Lipitor) 40 mg PO DAILY STATIN 01/07/25 01/07/25 History
furosemide 20 mg tablet (Lasix) 20 mg PO Q OTHER DAY Fluid 01/07/25 01/07/25 History
Retention/Swelling
metoprolol succinate 25 mg 12.5 mg PO BID Blood Pressure 01/07/25 01/07/25 History
tablet,extended release 24 hr
(Toprol XL)
Review of Systems
-
Unable to obtain full review of systems at this time due to: Dementia
History Source: Family
All other systems: Negative unless noted
Physical Exam
Vital Signs
Temp Pulse Resp BP Pulse Ox
98.6 F 97 26 119/70 98
01/07/25 14:52 01/07/25 14:52 01/07/25 14:52 01/07/25 15:00 01/07/25 15:15
Lab Results
01/07/25 14:56
01/07/25 14:56
Physical Exam
General: No Apparent Distress and Comfortable
HEENT: Normocephalic, Anicteric, Moist Mucous Membranes and Atraumatic
Cardiac: S1/S2 and Regular Rhythm; Negative Murmur, Rub or Peripheral Edema
GI: Soft and Normal Bowel Sounds
Musculoskeletal: No Clubbing, No Cyanosis and No Edema
Skin: Warm and Dry
Neuro: AO x 3
Psych: Calm
Impression / Plan
-
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
in acute exacerbation of HF and w/ NSTEMI who presented due to concerns of worsening shortness of breath
#Acute Exacerbation of Chronic HFmrEF
Elevated proBNP >27,000, CXR findings suggestive of worsening pulm edema compared to prior admission, significant hyponatremia
- Last echo (12/28) LVEF 40-45%, possible hypokinesis of the basal to mid inferior/inferolateral wall
- hold po Lasix, start 40mg IV Lasix BID
- trend IOs, daily weights
- weight up 9kg from prior admission
- requiring only 2L NC, which is his baseline; titrate as needed for O2 sat >92%
- C/w toprol XL
- check lactate
#MYLENE on CKD
pre-renal vs. post-renal, likely multifactorial
- apprentice/lineman 1.8 from prior baseline around 1.2
- pt with history of BPH, on terazosin
- bladder scan/Urine studies per nephro
- trend bmp
#Hypervolemic Hyponatremia, secondary to acute exacerbation of HFmrEF
Na 119 on admission from 133 5d ago
- IV diuresis as above
- c/t trend BMP
- nephro consulted; appreciate recs
#UT with cardiogenic shock on prior admission
#Elevated troponin
#CAD with triple vessel disease
- ECG showing ST depression in V3-V6
- elevated troponin at 4.3, however overall trending down from prior hospitalization at 9.6
- will check in evening, if stable/downtrending then no need to continue
- c/w aspirin, plavix
- holding statin 2* transaminitis
Last admission, PCI was deferred due to functional status, significant comorbidities and high risk of mortality associated with intervention. Will proceed with diuresis as above, but may revisit this conversation with family in the following days
if they wish to be aggressive. Otherwise, would consider palliative discussions.

Documented by User: Raghav Santos MD 01/07/25 18:52
Impression / Plan
-
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
in acute exacerbation of HF and w/ NSTEMI who presented due to concerns of worsening shortness of breath
#Acute Exacerbation of Chronic HFmrEF
- Elevated proBNP >27,000, CXR findings suggestive of worsening pulm edema compared to prior admission, significant hyponatremia, weight gain
- Last echo (12/28) LVEF 40-45%, possible hypokinesis of the basal to mid inferior/inferolateral wall
- cath with severe distal left main disease and RCA REPAIRER HAIRSPRING
- long discussion with family last admission with decision made to treat medically given the patient was without symptoms and PCI would be high risk; in setting of recurrent hospitalization, this should be rediscussed
For now:
- hold po Lasix, start 40mg IV Lasix BID
- trend IOs, daily weights, BMP
- check lactate, if elevated may need to consider milrinone to promote diuresis
- requiring only 2L NC, which is his baseline; titrate as needed for O2 sat >92%
- C/w toprol XL, hold if lactate elevated
- further GDMT pending renal recovery, will benefit from afterload reduction
#MYLENE on CKD
- apprentice/lineman 1.8 from prior baseline around 1.2
- likely 2/2 volume overload in setting of ADHF, examines warm
- pt with history of BPH, on terazosin
- bladder scan/Urine studies per nephro
- trend bmp
#Hypervolemic Hyponatremia, secondary to acute exacerbation of HFmrEF
Na 119 on admission from 133 5d ago
- IV diuresis as above
- c/t trend BMP
- nephro consulted; appreciate recs
#UT with cardiogenic shock on prior admission
#Elevated troponin
#CAD with triple vessel disease
- ECG showing ST depression in V3-V6
- elevated troponin at 4.3, however overall trending down from prior hospitalization at 9.6
- will check in evening, if stable/downtrending then no need to continue
- c/w aspirin, plavix
- holding statin 2* transaminitis
Last admission, PCI was deferred due to functional status, significant comorbidities and high risk of mortality associated with intervention. Will proceed with diuresis as above, but may revisit this conversation with family in the following days if
they wish to be aggressive. Otherwise, would consider palliative discussions.
Data Reviewed
-
EKG: Tracing Personally Visualized and interpreted
Radiology: Image Personally Visualized and interpreted
Labs: Labs Reviewed by me
[2025-01-07 15:40] LABS: Troponin I 4.330 ng/ml
--- NOTE | 2025-01-07 16:42 | W.CON.NEPH ---
Consultation
-
Date/Time Consultation Requested: 01/07/2025 4 PM
Date/Time Consultation Performed: 01/07/2025 4 PM
Requesting Provider: Dr. Holcomb
Performing Provider: Dr. Aguirre
Reason for Consultation: MYLENE
Medical History
-
Chief Complaint: Hyponatremia/hyperkalemia
History of Present Illness:
The patient is an 84-year-old male with hypertension on a multidrug regimen and dementia, CKD3a (1.2). He was recently in the hospital and discharged just 4 days ago. His hospitalization at that time was for shortness of breath as well as
mental status change. He was found to be hyponatremic at 118 with a positive troponin. He was felt to be in acute heart failure. He was noted to have non-ST elevation NM. He underwent right heart catheterization which showed a wedge pressure of
31 and subsequent left heart catheterization showing severe triple-vessel disease. Decision at that time was for medical management. He was restarted on oral Lasix at the time of discharge. And sent home with a course of antibiotics for
aspiration pneumonia. His sodium level improved to 132 at the time of discharge with diuresis.
His family brought him back today because of increased tachycardia at home as well as what appeared to be use of accessory breathing muscles. The patient also reports some pain with swallowing. His oral intake however has been good as the family
does feed him 3 meals per day. He has not had any diarrhea. In the emergency room his creatinine was 2.7 with a sodium level of 119.
Past Medical History
Hypertension
Dementia
CKD 3A
Diabetes mellitus type 2
Hyperlipidemia
Stroke
GERD
Tuberculosis, treated
Bilateral cataract surgery
Multivessel coronary artery disease
Heart failure moderately reduced ejection fraction 40%
Social History
Tobacco: Former Smoker
Alcohol: None
Drug: None
Living: With Family
Family History
Family History: Not Pertinent
Allergies / Home Medications
Allergy/AdvReac Type Severity Reaction Status Date / Time
No Known Allergies Allergy Verified 10/30/23 15:47
�Medication �Instructions �Recorded �Confirmed �Type
aspirin 81 mg tablet,delayed 81 mg PO DAILY Blood Clot 12/28/24 01/07/25 History
release Prevention/Tx
memantine 10 mg tablet 10 mg PO DAILY Dementia 12/28/24 01/07/25 History
metformin 500 mg tablet 500 mg PO DAILY Diabetes 12/28/24 01/07/25 History
pantoprazole 40 mg tablet,delayed 40 mg PO DAILY Gastrointestinal 12/28/24 01/07/25 History
release Issue
terazosin 1 mg capsule 1 mg PO HS Urinary Issue 12/28/24 01/07/25 History
clopidogrel 75 mg tablet 75 mg PO DAILY #30 tabs 01/02/25 01/07/25 Rx
atorvastatin 40 mg tablet (Lipitor) 40 mg PO DAILY STATIN 01/07/25 01/07/25 History
furosemide 20 mg tablet (Lasix) 20 mg PO Q OTHER DAY Fluid 01/07/25 01/07/25 History
Retention/Swelling
metoprolol succinate 25 mg 12.5 mg PO BID Blood Pressure 01/07/25 01/07/25 History
tablet,extended release 24 hr
(Toprol XL)
Review of Systems
-
Shortness of breath, throat pain
Unable to obtain full review of systems at this time due to: Dementia
History Source: Family
All other systems: Negative unless noted
Physical Exam
Vital Signs
Vital Signs
Temp Pulse Resp BP Pulse Ox
98.6 F 96 24 110/67 99
01/07/25 14:52 01/07/25 15:30 01/07/25 15:30 01/07/25 15:00 01/07/25 15:30
Lab Results
WBC 10.6 10^3/uL (4.8-10.8) 01/07/25 14:56
RBC 2.81 10^6/uL (4.70-6.10) L 01/07/25 14:56
Hgb 8.8 g/dL (13.0-18.0) L 01/07/25 14:56
Hct 25.2 % (39.0-52.0) L 01/07/25 14:56
Plt Count 202 10^3/uL (130-400) D 01/07/25 14:56
Sodium 119 mmol/L (135-145) L* 01/07/25 14:56
Potassium 4.5 mmol/L (3.5-5.1) 01/07/25 14:56
Chloride 90 mmol/L (98-107) L 01/07/25 14:56
Carbon Dioxide 22 mmol/L (22-30) 01/07/25 14:56
BUN 51 mg/dl (9-20) H 01/07/25 14:56
Creatinine 1.8 mg/dL (0.7-1.3) H 01/07/25 14:56
eGFR 36.89 01/07/25 14:56
Glucose 170 mg/dl (70-99) H 01/07/25 14:56
Calcium 7.7 mg/dl (8.4-10.2) L 01/07/25 14:56
Lkl-Y-Tgtjghzhgaa Pept > 49132 pg/ml 01/07/25 14:56
Albumin 3.0 g/dl (3.5-5.0) L 01/07/25 14:56
Laboratory Tests
01/02/25 01/07/25
06:46 14:56
Sodium 133 L
Creatinine 1.2
Calcium 8.0 L
AST 460 H
ALT 317 H
Troponin I 4.330 H*
Ckq-E-Fzdfuicjqmi Pept > [id number]
Physical Exam
Patient is awake. Pupils are equal round and reactive to light, extraocular movements are intact, sclera were anicteric. ears and nose are intact. Neck was supple with trachea midline and no thyromegaly. Heart was regular rate and rhythm without
rubs. Lower extremities without edema. Lungs were coarse to auscultation bilaterally and with normal excursion. Abdomen was soft, nontender, with normal active bowel sounds, and no hepatosplenomegaly. Skin was without rash and with normal turgor.
Data Reviewed
-
Radiology: Image Personally Visualized and interpreted (Chest x-ray 01/07/2025 by my reading vascular prominence)
Medical Tests (Nuc Med, Echo etc): Image Personally Visualized and interpreted (EKG 01/07/2025 by reading normal sinus rhythm) and Report Reviewed by me (Catheterization and reports from last admission reviewed)
Labs: Labs Reviewed by me
Old Records: Reviewed
Assessment/Plan
-
Impression:
Hypoxic respiratory failure/proBNP 95183
Recent non-ST elevation NM, troponin falling
Three-vessel CAD by left heart cath, medical management
Hyponatremia, acute
MYLENE on CKD with baseline approximately 1.2
metabolic acidosis
Elevated LFTs
Plan:
He appears to be in decompensated heart failure, weight in the emergency room is also higher than discharge weight
Hold statin
Hold antibiotics
Lasix 40 mg IV twice daily
Follow BMP
Follow LFTs
Check urine studies
Check bladder scan
--- NOTE | 2025-01-07 17:06 | HPS.HSE ---
Addendum entered and electronically signed by Lance Lea MD 01/07/25 20:46:
This is an addendum to H&P written by Sabina Child on 01/07/2025. �Patient seen and examined independently with [employer].
84-year-old male past medical history of dementia, nonverbal at baseline, hypertension, hyperlipidemia, GERD, prediabetes, CKD 3B, multivessel CAD, chronic HFrEF, anemia of chronic disease, presenting with shortness of breath, tachycardia and
tachypnea and wheezing 2 days ago. No chest pain.�
Patient was recently admitted from 12/28 to 01/03 for lethargy, altered mental status and breathing difficulties. �He was found to be hyponatremic with hyperkalemia with elevated troponin and EKG changes. �He was treated for CHF exacerbation with
diuretics. �He was seen by cardiology for cardiogenic shock. �He underwent left heart catheterization that showed severe triple-vessel coronary artery disease. �Medical treatment was recommended due to patient's frail status and comorbidities. �He
was also treated for aspiration pneumonia. DIscharged on 2-3 L.�
Vital signs show mild hypoxemia requiring 2 L oxygen. Blood pressure initially 110 but decreased to 90s.�
Labs show sodium of 119. �Creatinine of 1.8 baseline around 1.2. �Transaminitis AST 460, ALT of 317. �Troponin 4.3 from 9.5 previously. �BNP greater than 27,000 from 15,000 previously. �Labs show hemoglobin of 8.8 from 11.5 prior to recent
hospitalization. �Chest x-ray shows mildly enlarged heart. �Increase in pulmonary vasculature. �Small bilateral pleural effusions. �Recent echocardiogram shows EF of 40 to 45%.
Patient with acute CHF exacerbation and resulting hypervolemia hyponatremia. �MYLENE likely cardiorenal. �IV Lasix 40 twice daily but will have to give 20 IV Lasix since hypotensive. �Nephrology consulted. �Cardiology consulted. �Troponin elevation
likely demand ischemia not as high as recently.
Transaminitis likely secondary to congestive heart failure/recent antibiotic but will check liver ultrasound.
Original Note:
Family Physician
-
Family Physician: India Lee MD
Chief Complaint
-
Tachycardia, tachypnea
History of Present Illness
84-year-old male whose family brought him in today complaining of tachycardia, shortness of breath/tachypnea pain with swallowing however is eating 3 times a day. His daughter at bedside states they have been monitoring his pulse and blood pressure
with pulse ox and blood pressure machine. She reports that he has been on chronic 2 to 3 L nasal cannula since his recent discharge with O2 satting 93 to 95%. He has current sodium of 119, acute transaminitis, MYLENE he was recently admitted 12/28 -
01/03/2025 due to IN with cardiogenic shock showing multivessel CAD due to underlying conditions was treated conservatively with medical management. He was placed on aspirin, Brilinta, statin. He was also given antibiotics for aspiration pneumonia
discharged on cefdinir and doxycycline. He was also noted to be hyponatremic 118 with acute heart failure that improved with diuresis. Patient denies fever, chills, chest pain, palpitations, cough, abdominal pain, nausea, vomiting, diarrhea,
urinary symptoms.
He has past medical history IN cardiogenic shock, multivessel CAD treated with medical management, aspiration pneumonia, CHF, cardiomyopathy EF 45% moderate dementia, HTN, HLD, CKD 3A, DM2, CVA, former smoker
Medical History
Past Medical History
Past Medical History: Reports Other
Additional Past Medical History:
IN/ cardiogenic shock 12/28/2024
multivessel CAD treated with medical management 12/28/2024
aspiration pneumonia 12/28/2024
CHF, cardiomyopathy EF 45% 12/28/2024
moderate dementia
HTN
HLD
CKD 3A
DM2
CVA,
former smoker quit age 50s
Past Surgical History: Reports Other
Additional Past Surgical History:
Cataract extraction
Social History
Tobacco: Former Smoker (Quit age 51s)
Alcohol: None
Drug: None
Personal:
Living: With Family
Employment: Retired
Family History
Family History: Not pertinent
Allergies / Home Medications
Allergies reflects when Allergies were last updated in [facility].
Home Medications with original date entered in [facility]
Allergy/Medication List:
Allergies
Allergy/AdvReac Type Severity Reaction Status Date / Time
No Known Allergies Allergy Verified 10/30/23 15:47
Home Medications
aspirin 81 mg tablet,delayed release 81 mg PO DAILY Blood Clot Prevention/Tx 12/28/24
memantine 10 mg tablet 10 mg PO DAILY Dementia 12/28/24
metformin 500 mg tablet 500 mg PO DAILY Diabetes 12/28/24
pantoprazole 40 mg tablet,delayed release 40 mg PO DAILY Gastrointestinal Issue 12/28/24
terazosin 1 mg capsule 1 mg PO HS Urinary Issue 12/28/24
clopidogrel 75 mg tablet 75 mg PO DAILY #30 tabs 01/02/25
atorvastatin 40 mg tablet (Lipitor) 40 mg PO DAILY STATIN 01/07/25
furosemide 20 mg tablet (Lasix) 20 mg PO Q OTHER DAY Fluid Retention/Swelling 01/07/25
metoprolol succinate 25 mg tablet,extended release 24 hr (Toprol XL) 12.5 mg PO BID Blood Pressure 01/07/25
Review of Systems
-
History Source: Family (Daughter Dustin at bedside)
Constitutional: Reports Fatigue; Denies Chills
EENT: Denies Sore Throat or Runny Nose
Respiratory: Reports Trouble Breathing and Other (Tachypnea, wheezing)
Cardiac: Denies Chest Pain, Diaphoresis or Palpitations
Abdomen/GI: Denies Abdominal Pain, Nausea, Vomiting, Diarrhea, Constipated or Bloody Stools
: Denies Dysuria, Frequency, Flank Pain or Incontinence
Musculoskeletal: Denies Joint Pain or Edema
Skin: Reports Other (Ecchymosis with swelling left upper extremity circumferential); Denies Itching or Rash
Neurological: Reports Weakness; Denies Dizzy or Headache
Endocrine: Reports No Symptoms
Hematologic/Lymphatic: Reports No Symptoms
Psych: Reports Calm
Physical Exam
Vital Signs
Vital Signs
Temp Pulse Resp BP Pulse Ox
98.6 F 96 24 110/67 99
01/07/25 14:52 01/07/25 15:30 01/07/25 15:30 01/07/25 15:00 01/07/25 15:30
Physical Exam
General: Other (Audible wheezing on chronic 2 L nasal cannula); No Fever or Chills
HEENT: NormoCephalic, Anicteric, Moist mucous membranes, PERRLA, [place] Conjunctivae and No Ptosis
Respiratory: Wheezes (Audible); No Rales, Rhonchi or Crackles
Cardiac: S1/S2 and Regular Rhythm; No Murmur, Rub, Gallop or Peripheral Edema
Breast: Deferred by me
GI: Soft, Non Tender, Non Distended, Normal Bowel Sounds and No Hepatosplenomegaly
Rectal: Deferred by Provider
Genito-urinary: Deferred by me
Musculoskeletal: No Clubbing, No Cyanosis and No Edema
Skin: Warm, Dry and Other (Ecchymosis with swelling left upper extremity circumferential)
Neuro: Awake, Alert, Oriented (Per daughter oriented to name, daughter, president), Cranial Nerves Intact and No Sensory Deficits; No Slurred Speech, Facial Droop, Tremors or Sedated
Psych: Calm
Laboratory Results
-
01/07/25 14:56
01/07/25 14:56
Laboratory Results
Total Bilirubin 1.0 mg/dl (0.2-1.3) 01/07/25 14:56
AST 460 U/L (17-59) H 01/07/25 14:56
ALT 317 U/L (0-50) H 01/07/25 14:56
Alkaline Phosphatase 130 U/L (38-126) H 01/07/25 14:56
Troponin I 4.330 ng/ml H* 01/07/25 14:56
Impression/Plan
-
Impression/plan:
Admit to IMU
#Acute hyponatremia�hypervolemic due to CHF
NA 119
- Consult nephro
- IV Lasix 40 mg twice daily goal
Due to patient current hypotension - will start with IV Lasix 20 mg
- Follow BMP
- PT/OT/case management consult
#Labile hypotension
BP 90/60 > 114/69
-Continue to monitor given patient requires IV Lasix 40 mg twice daily
-May require pressors
-Will hold Toprol XL 12.5 mg twice daily
#Acute on chronic CHF
BNP> 28897 weight 61.8 kg> 52.8 kg on 01/03/2025 possible 19.8 pound weight gain in 4 days
-I/O, daily weight
-IV Lasix 40 mg twice daily
-Due to patient current hypotension - will start with IV Lasix 20 mg
-May require pressors
- Consult cardiology�CBC
CXR: Worsening no interval findings suggesting pulmonary edema
EKG: NSR 95 bpm, ST abnormality lateral leads no change from December 30, 2024, QTc 427 MS
#Acute transaminitis possibly secondary to venous congestion/statin/ABX
AST 460, ALT 317, alk phos 130-per daughter no reported history of hepatitis patient from [facility] has been living in past 3.5 years
-Hold Lipitor 40 mg daily
-Follow CMP
- Ultrasound abdomen
#MYLENE on CKD 3 A
Creat 1.8> 1.2 on 01/02/2025
-Hold metformin 500 mg daily
- Follow BMP
#Anemia�normocytic
Hgb 8.8<9.9 could be dilutional prior hemoglobin 11.5 on 12/28/2024
MCV 89.7
-Check iron panel, B12, folate
- Follow CBC
#Ecchymosis with swelling left upper extremity
Ultrasound negative for DVT
#Recent IN with cardiogenic shock 12/28 - 01/03/2025/cardiomyopathy EF 45%
#Acute on chronic troponin elevation due to IN
#Left heart cath showed severe triple-vessel CAD due to underlying dementia comorbidities medical treatment was to optimize starting aspirin, Plavix statin will hold current statin due transaminitis
Troponin 4.3 trending down from 12.4 peak on 12/29/2024
- Continue aspirin 81 mg daily, Plavix 75 mg daily,
HOLD Toprol XL 12.5 mg twice daily due to hypotension
DASH 12/28/2024: EF 40-45%, mild reduced LVSF, possible hypokinesis of basal to mid inferior/inferolateral wall no valvular disease, PASP 59 mmHg
#Recent hypoxic respiratory insufficiency requiring chronic 2 to 3 L nasal cannula on discharge 01/03/2025
#Recent aspiration pneumonia 12/28/2024
98% 2 L nasal cannula
-Was started on IV ABX transition to oral cefdinir/doxycycline finished 01/06/2025
- required BiPAP during recent stay
#Dementia�moderate
Speaks mandrin/Cantonese oriented to name, president, daughter per daughter Dustin at bedside
-Needs assist with all ADLs
-Continue Namenda 10 mg daily
#DM 2
Accu-Cheks with SSI recent HgbA1c 5.9 on 12/21/2024
Hold metformin 500 mg daily due to MYLENE
#History of CVA
-Continue aspirin
#BPH
Continue terazosin 1 mg p.o. at bedtime
DVT prophylaxis
Subcu heparin
Full code
[2025-01-07 17:08] LABS: LDH 742 U/L (120-246)
[2025-01-07 17:26] LABS: Iron 44 ug/dl (49-181); Magnesium 2.3 mg/dl (1.6-2.3)
[2025-01-07 17:36] LABS: Total Iron Binding Capacity 225 ug/dl (261-462)
[2025-01-07] MEDS: LASIX 20 MG IV (18:03)
[2025-01-07 18:10] LABS: Ferritin 294.0 ng/ml (17.9-464.0)
--- NOTE | 2025-01-07 18:16 | EDCM ---
CM reviewed chart and met with daughter Dustin bedside in ED. Pt is Cantonese speaking. Lives with his daughter, her and her 9yo son in 2 story home, [address], has first floor setup with walk in shower with seat
Needs assistance with ADLs and personal care. prior to last admission, was able to ambulate with rollator, but has not ambulated since last discharge on 01/03. Has home O2 from [employer], uses 3L NC continuously.
Confirms prescription coverage.
Current with [facility], nurse saw him today. No hx SNF, daughter is interested in discussing if he would qualify
PCP: India Lee
Pharmacy: [facility] [place]
CM will continue to follow for any discharge planning needs.
[2025-01-07 18:41] LABS: Folate 4.7 ng/ml (2.76-20); Vitamin B12 795 pg/ml (239-931)
[2025-01-07 19:19] LABS: Urine Character Clear (Clear)
[2025-01-07 19:34] LABS: Urine Squamous Cell 16-20 /LPF (Few)
[2025-01-07 19:35] LABS: Urine Red Blood Cell 0-2 /HPF (0-2); Urine White Cell 0-2 /HPF (0-5)
[2025-01-07 20:18] LABS: Glucose - Point of Care 152 mg/dl (70-99)
[2025-01-07] MEDS: HEPARIN 5000 UNITS SC (21:23)
[2025-01-08] VITALS (16 sets, daily range): BP systolic 94–121; BP diastolic 50–79; PULSE 98; O2SAT 97
[2025-01-08 00:25] LABS: Troponin I 3.490 ng/ml
--- NOTE | 2025-01-08 02:40 | PTCARENOTE ---
Rec'd pt from ED RN. Pt non-Sammarinese speaking, but does converse minimally with his daughter at bedside in [place] language. Admission performed with assistance of daughter for history. NSR with PVCs on CM, occasional bigeminy and trigeminy. Continues
on 2L O2. Bed alarm in place for pt safety. Care ongoing.
[2025-01-08 05:03] LABS: ALT (SGPT) 244 U/L (0-50); AST (SGOT) 177 U/L (17-59); Albumin 2.9 g/dl (3.5-5.0); Alkaline Phosphatase 119 U/L (38-126); Blood Urea Nitrogen 55 mg/dl (9-20); Calcium 7.6 mg/dl (8.4-10.2); Carbon Dioxide 26 mmol/L (22-30); Chloride 96 mmol/L (98-107); Glucose 104 mg/dl (70-99); Potassium 4.2 mmol/L (3.5-5.1); Sodium 125 mmol/L (135-145); Total Protein 5.2 g/dl (6.3-8.2); eGFR 39.51
[2025-01-08 05:38] LABS: Hematocrit 23.9 % (39.0-52.0); Hemoglobin 8.1 g/dL (13.0-18.0); Mean Corp Hgb Conc. 33.9 g/dL (33.0-37.0); Mean Corpuscular Volume 91.9 fL (80.0-94.0); Nucleated Red Blood Cells % 0 % (-); Platelet Count 180 10^3/uL (130-400); Red Cell Dist. Width 13.6 % (11.5-14.5)
--- NOTE | 2025-01-08 08:34 | W.PN.HOSP.TC ---
Today's Communication/Plan
-
see bold
Assessment / Plan
Assessment / Plan
Assessment/plan:
#Acute heart failure with mildly reduced ejection fraction
#Acute kidney injury on stage III CKD due to cardiorenal syndrome
Appreciate nephrology input, continue IV lasix BID
Trend creatinine, trend daily weights
#Acute on chronic hypervolemic hyponatremia
Appreciate nephrology input, suspect hypervolemic
Sodium 128 today, was 119 upon admission
Continue fluid restriction, IV Lasix, trend sodium
#Recent NSTEMI
#Recent multivessel CAD
Due to patient's multiple medical comorbidities, family decided to proceed with medical management instead of PCI
Interventional cardiology now considering Impella supported LM-LAD PCI with rescue POBA of the largely collateralized LCx, but would be high risk
Troponins now downtrending, continue aspirin, Plavix
#Transaminitis
Due to hepatic congestion
#Glucose intolerance
Hemoglobin A1c 5.9
#Dementia
#Mostly nonverbal status
Continue Namenda
Cleared by speech for soft/bite sized diet with thin liquids
#Gastroesophageal reflux disease
PPI
DVT prophylaxis� SC heparin
Total time spent to see the patient on the floor, examine the patient, review data and lab results, discuss treatment plan with patient, nursing staff around 45 minutes.
Physical Exam
General: No acute distress
HEENT: Normocephalic, Atraumatic, EOMI, MMM
Respiratory: Bibasilar crackles
Cardiac: Normal S1/S2, Regular Rate and Rhythm
GI: Soft, Nontender, Nondistended, Normal Bowel Sounds
Extremities: No Clubbing, Cyanosis
Mild LE Edema
Neuro: Pleasantly confused
Anticipated Discharge: > 48 hours
Subjective/Interval History
-
Date of Service: January 08, 2025
Unable to communicate due to language barrier and dementia. No fever, no vomiting.
Objective Data
-
Labs:
Laboratory Results
01/08/25
04:09
WBC 8.6
Hgb 8.1 L
Hct 23.9 L
Plt Count 180
Sodium 125 L
Potassium 4.2
Chloride 96 L
Carbon Dioxide 26
BUN 55 H
Creatinine 1.7 H
Glucose 104 H
Calcium 7.6 L
Total Bilirubin 1.0
AST 177 H
ALT 244 H
Alkaline Phosphatase 119
Vital Signs:
Vital Signs
Temp Pulse Resp BP Pulse Ox
97.4 F 109 22 94/61 100
01/08/25 07:58 01/08/25 06:00 01/08/25 06:00 01/08/25 06:00 01/08/25 05:35
I&O
01/07/25 01/08/25 01/09/25
06:59 06:59 06:59
Output Total 850 / 850
Balance -850 / -850
[2025-01-08] MEDS: ASPIR LOW (ENTERIC COATED) 81 MG PO (09:30)
[2025-01-08] MEDS: NAMENDA 10 MG PO (09:30)
[2025-01-08] MEDS: PLAVIX 75 MG PO (09:30)
[2025-01-08] MEDS: PROTONIX 40 MG PO (09:30)
[2025-01-08] MEDS: HEPARIN 5000 UNITS SC ×2 (09:30→19:24)
[2025-01-08] MEDS: LASIX 40 MG IV ×2 (09:31→18:02)
[2025-01-08] MEDS: NOVOLOG FLEXPEN-LOW RESISTANCE SC ×2 (10:09→18:20)
[2025-01-08 10:10] LABS: Glucose - Point of Care 103 mg/dl (70-99)
--- NOTE | 2025-01-08 12:44 | W.PN.NEPH.PH ---
Today's Communication / Plan
-
follow labs
Assessment/Plan
-
Impression:
Hypoxic respiratory failure/proBNP 99940
Recent non-ST elevation OK, troponin falling
Three-vessel CAD by left heart cath, medical management
Hyponatremia, acute
MYLENE on CKD with baseline approximately 1.2
metabolic acidosis
Elevated LFTs
Plan:
Hyponatremia-improving with lasix suggest hypervolemia
MYLENE-likely CRS, bland UA and U na low 13, bladder scan 245cc, rt kidney 8.2cm, non acute on limited US
cont lasix and repeat labs today
monitor daily wts
Hold statin, improving LFTs
monitor soft BPs
follow h/h
Follow BMP
d/w nursing
-
-
Date of Service: January 08, 2025
CC / HPI / ROS
-
Chief Complaint:
Hyponatremia
MYLENE
History of Present Illness:
creatinine no change at 1.7
sodium better at 125 from 119 with lasix
non oliguric with condom catheter
Review of Systems:
difficult to communicate with language barrier
no fever , on O2 2lit
wt no sig change
Labs
-
Labs:
WBC 8.6 10^3/uL (4.8-10.8) 01/08/25 04:09
RBC 2.60 10^6/uL (4.70-6.10) L 01/08/25 04:09
Hgb 8.1 g/dL (13.0-18.0) L 01/08/25 04:09
Hct 23.9 % (39.0-52.0) L 01/08/25 04:09
Plt Count 180 10^3/uL (130-400) 01/08/25 04:09
Sodium 125 mmol/L (135-145) L 01/08/25 04:09
Potassium 4.2 mmol/L (3.5-5.1) 01/08/25 04:09
Chloride 96 mmol/L (98-107) L 01/08/25 04:09
Carbon Dioxide 26 mmol/L (22-30) 01/08/25 04:09
BUN 55 mg/dl (9-20) H 01/08/25 04:09
Creatinine 1.7 mg/dL (0.7-1.3) H 01/08/25 04:09
eGFR 39.51 01/08/25 04:09
Glucose 104 mg/dl (70-99) H 01/08/25 04:09
Calcium 7.6 mg/dl (8.4-10.2) L 01/08/25 04:09
Phosphorus 4.2 mg/dl (2.5-4.5) 01/07/25 14:56
Mez-B-Nbaffuzutwi Pept > 25554 pg/ml 01/07/25 14:56
Albumin 2.9 g/dl (3.5-5.0) L 01/08/25 04:09
Physical Exam
-
Vital Signs:
Vital Signs
Temp Pulse Resp BP Pulse Ox
97.6 F 102 18 112/75 99
01/08/25 12:38 01/08/25 10:14 01/08/25 10:14 01/08/25 10:14 01/08/25 10:00
Cardiovascular:: Regular rate and rhythm
Respiratory:: Bilateral: Coarse
Lung Excursion:: Normal
Abdomen:: Nontender and Soft
Bowel Sounds:: Normal
Extremity Edema:: None: Bilateral:
Baker Catheter: No
Other Findings::
left elbow brusing
--- NOTE | 2025-01-08 13:02 | W.PN.CD ---
Addendum entered and electronically signed by Roxana Little MD 01/08/25 18:04:
I saw and evaluated the patient with the resident. I was present for the oquendo portions of the history and exam and personally performed the MDM, including reviewing labs, assessing the patient, and directing management plan. I agree with the
residents note with my comments/adjustments below:
Patient not readily answering questions, his daughter is at the bedside. His daughter thinks that he looks much more comfortable than yesterday especially with his breathing he is trying to pull out lines and mittens have been placed on his hands.
On exam, he is awake and alert and calm. Regular rate and rhythm with a 2 out of 6 6 crescendo decrescendo murmur in the right upper sternal border, normal effort, end expiratory wheezes heard diffusely, no significant edema.
Sodium is improving, telemetry with sinus and frequent ectopy at times ventricular bigeminy.
Assessment:
Acute on chronic HFmrEF
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
Hypervolemic hyponatremia
Acute on chronic kidney disease
Acute transaminitis
Plan:
Continue IV diuresis with intensive monitoring of kidney function and vital signs.
Continue to reassess for improvement of symptoms. At this time we are trying to medically manage his CAD.
Continue to hold statin given transaminitis
Resume GDMT as able
Original Note:
Today's Communication / Plan
-
c/w IV lasix 40mg BID as patient is diuresing well
Impression / Plan
-
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
in acute exacerbation of HF and w/ NSTEMI who presented due to concerns of worsening shortness of breath
#Acute Exacerbation of Chronic HFmrEF
- Elevated proBNP >27,000, CXR findings suggestive of worsening pulm edema compared to prior admission, significant hyponatremia, weight gain
- Last echo (12/28) LVEF 40-45%, possible hypokinesis of the basal to mid inferior/inferolateral wall
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
- long discussion with family last admission with decision made to treat medically given the patient was without symptoms and PCI would be high risk; in setting of recurrent hospitalization, this should be rediscussed
- lactate wnl
For now:
- hold po Lasix
- trend IOs, daily weights, BMP
- net neg 850cc at this time, weight about the same, but bmp overall improving.
- continue 40mg IV Lasix BID
- requiring only 2L NC, which is his baseline; titrate as needed for O2 sat >92%
- C/w toprol XL, hold if lactate elevated
- further GDMT pending renal recovery, will benefit from afterload reduction
#MYLENE on CKD
- final touch up painter 1.8 from prior baseline around 1.2
- likely 2/2 volume overload in setting of ADHF, examines warm
- pt with history of BPH, on terazosin
- bladder scan/Urine studies per nephro
- trend bmp
#Hypervolemic Hyponatremia, secondary to acute exacerbation of HFmrEF
Na 119 on admission from 133 5d ago
- IV diuresis as above
- c/t trend BMP
- nephro consulted; appreciate recs
#[place] with cardiogenic shock on prior admission
#Elevated troponin
#CAD with triple vessel disease
- ECG showing ST depression in V3-V6
- elevated troponin at 4.3, however overall trending down from prior hospitalization at 9.6
- will check in evening, if stable/downtrending then no need to continue
- c/w aspirin, plavix
- holding statin 2/2 transaminitis
Last admission, PCI was deferred due to functional status, significant comorbidities and high risk of mortality associated with intervention. Will proceed with diuresis as above, but may revisit this conversation with family in the following days if
they wish to be aggressive moving forward. Otherwise, would consider palliative discussions.
Physical Exam
Vital Signs/Labs
Vital Signs
Temp Pulse Resp BP Pulse Ox
97.6 F 102 18 112/75 99
01/08/25 12:38 01/08/25 10:14 01/08/25 10:14 01/08/25 10:14 01/08/25 10:00
01/07/25 01/08/25 01/09/25
06:59 06:59 06:59
Actual Weight 57.238 kg
01/08/25 04:09
Magnesium 2.3 mg/dl (1.6-2.3) 01/07/25 14:56
01/07/25
14:56
Mqi-H-Mmusxfuzafm Pept > 63804
LAB Results
01/07/25 01/07/25
14:56 23:37
Troponin I 4.330 H* 3.490 H*
Physical Exam
Constitutional: No acute distress and Comfortable
EENT: Anicteric and Moist mucous membranes
Cardiovascular: Rhythm/rate is irregular and Murmur/rub/gallop absent
Respiratory: Respiratory effort normal and Wheeze Present
GI: Soft, Non tender and Normal bowel sounds
Neuro/Psych: Alert
Data Reviewed
-
Date of Service: January 08, 2025
--- NOTE | 2025-01-08 13:17 | CM ---
Following H/H, BMP, daily weights, IV/Lasix. Current with [facility]. Will send referral. Discharge POC: Await therapy evaluations.
--- NOTE | 2025-01-08 13:59 | PTCARENOTE ---
Patient removed int, o2 and some tele electrodes- pt has a right midline - mitt order obtained and placed on pt. Fed pt breakfast -here late- no signs of aspiration. Tolerated well- d/w speech [place]- he just had vse last week. OOB in recliner
chair with chair alarm. Relaxation video placed. Daughters are not present.
[2025-01-08 14:23] LABS: Glucose - Point of Care 173 mg/dl (70-99)
[2025-01-08] MEDS: NOVOLOG FLEXPEN-LOW RESISTANCE 1 UNITS SC (14:29)
[2025-01-08 15:06] LABS: Blood Urea Nitrogen 48 mg/dl (9-20); Calcium 8.0 mg/dl (8.4-10.2); Carbon Dioxide 27 mmol/L (22-30); Chloride 95 mmol/L (98-107); Glucose 158 mg/dl (70-99); Potassium 4.0 mmol/L (3.5-5.1); Sodium 128 mmol/L (135-145); eGFR 39.51
[2025-01-08 18:08] LABS: Glucose - Point of Care 144 mg/dl (70-99)
[2025-01-08 21:52] LABS: Glucose - Point of Care 157 mg/dl (70-99)
[2025-01-08] MEDS: HYTRIN 1 MG PO (22:42)
[2025-01-09] VITALS (12 sets, daily range): BP systolic 93–118; BP diastolic 45–77
[2025-01-09 05:35] LABS: ALT (SGPT) 169 U/L (0-50); AST (SGOT) 69 U/L (17-59); Albumin 3.0 g/dl (3.5-5.0); Alkaline Phosphatase 102 U/L (38-126); Blood Urea Nitrogen 56 mg/dl (9-20); Calcium 7.8 mg/dl (8.4-10.2); Carbon Dioxide 28 mmol/L (22-30); Chloride 99 mmol/L (98-107); Glucose 115 mg/dl (70-99); Magnesium 2.4 mg/dl (1.6-2.3); Potassium 3.9 mmol/L (3.5-5.1); Sodium 132 mmol/L (135-145); Total Protein 5.4 g/dl (6.3-8.2); eGFR 42.49
--- NOTE | 2025-01-09 05:53 | PTCARENOTE ---
B/l mitts remain in place. cc# 25 remains intact. Pt appears comfortable in bed. Nods appropriately, but does not offer verbal response. Call malone within reach. Bed alarm in place for pt safety.
[2025-01-09 05:56] LABS: Hematocrit 26.6 % (39.0-52.0); Hemoglobin 8.9 g/dL (13.0-18.0); Mean Corp Hgb Conc. 33.5 g/dL (33.0-37.0); Mean Corpuscular Volume 91.7 fL (80.0-94.0); Platelet Count 235 10^3/uL (130-400); Red Cell Dist. Width 13.9 % (11.5-14.5)
[2025-01-09 08:32] LABS: Glucose - Point of Care 124 mg/dl (70-99)
[2025-01-09] MEDS: NOVOLOG FLEXPEN-LOW RESISTANCE SC (08:40)
[2025-01-09] MEDS: PLAVIX 75 MG PO (08:40)
[2025-01-09] MEDS: LASIX 40 MG IV ×2 (08:40→17:10)
[2025-01-09] MEDS: PROTONIX 40 MG PO (08:40)
[2025-01-09] MEDS: ASPIR LOW (ENTERIC COATED) 81 MG PO (08:40)
[2025-01-09] MEDS: NAMENDA 10 MG PO (08:40)
[2025-01-09] MEDS: HEPARIN 5000 UNITS SC ×2 (08:41→20:13)
--- NOTE | 2025-01-09 09:46 | W.PN.HOSP.TC ---
Today's Communication/Plan
-
see bold
Assessment / Plan
Assessment / Plan
Assessment/plan:
#Subacute hypoxic respiratory failure, onset 12/28/24
#Acute heart failure with mildly reduced ejection fraction
#Acute kidney injury on stage III CKD due to cardiorenal syndrome
Appreciate nephrology input, continue IV lasix BID
Cardiology added metoprolol to tartrate 12.5 mg twice a day
Hypoxia resolved, now on room air. He was requiring 3 L previously
Trend creatinine, trend daily weights
#Acute on chronic hypervolemic hyponatremia
Appreciate nephrology input, suspect hypervolemic
Sodium 128 today, was 119 upon admission
Continue fluid restriction, IV Lasix, trend sodium
#Recent NSTEMI
#Recent multivessel CAD
Due to patient's multiple medical comorbidities, family decided to proceed with medical management instead of PCI
Troponins now downtrending, continue aspirin, Plavix. Cardiology added metoprolol to tartrate 12.5 mg twice a day
Interventional cardiology now considering Impella supported LM-LAD PCI with rescue POBA of the largely collateralized LCx, but would be high risk
#Dysphagia
Tolerating soft/bite-size diet with mildly thickened nectar liquids
#Transaminitis
Due to hepatic congestion
#Glucose intolerance
Hemoglobin A1c 5.9
#Dementia
#Mostly nonverbal status
Continue Namenda
Cleared by speech for soft/bite sized diet with thin liquids
#Gastroesophageal reflux disease
PPI
DVT prophylaxis� SC heparin
Total time spent to see the patient on the floor, examine the patient, review data and lab results, discuss treatment plan with patient, nursing staff around 43 minutes.
Physical Exam
General: No acute distress
HEENT: Normocephalic, Atraumatic, EOMI, MMM
Respiratory: Bibasilar crackles
Cardiac: Normal S1/S2, Regular Rate and Rhythm
GI: Soft, Nontender, Nondistended, Normal Bowel Sounds
Extremities: No Clubbing, Cyanosis
Mild LE Edema
Neuro: Pleasantly confused
Anticipated Discharge: > 48 hours
Subjective/Interval History
-
Date of Service: January 09, 2025
Patient does cough, but he is tolerating his diet. No fever, no vomiting.
Objective Data
-
Labs:
Laboratory Results
01/09/25
04:58
WBC 9.0
Hgb 8.9 L
Hct 26.6 L
Plt Count 235 D
Sodium 132 L
Potassium 3.9
Chloride 99
Carbon Dioxide 28
BUN 56 H
Creatinine 1.6 H
Glucose 115 H
Calcium 7.8 L
Total Bilirubin 1.2
AST 69 H
ALT 169 H
Alkaline Phosphatase 102
Vital Signs:
Vital Signs
Temp Pulse Resp BP Pulse Ox
97.6 F 100 20 110/55 94
01/09/25 07:40 01/09/25 06:00 01/09/25 06:00 01/09/25 06:00 01/09/25 06:00
I&O
01/08/25 01/09/25 01/10/25
06:59 06:59 06:59
Intake Total 760 / 760
Output Total 850 / 850 4175 / 4175
Balance -850 / -850 -3415 / -3415
--- NOTE | 2025-01-09 09:54 | PN.CDI ---
CDI
- -
CDI:
Physician Documentation Request
Admit Date: 01/07/25 17:58
Dear Doctor Do,
Clinical Indicators:
Patient admitted with acute on chronic HFmrEF.
01/07 Case management note, 'Has home O2 from [employer], uses 3L NC continuously.'
01/07 H & P, 'Recent hypoxic respiratory insufficiency requiring chronic 2 to 3 L nasal cannula on discharge 01/03/2025'
Please clarify which of the following accurately represents the patient's respiratory status:
Chronic hypoxic respiratory failure
Hypoxia only
Other, please specify
Use of terms such as suspected, likely, concern for, or probable (associated with a specific diagnosis that is being evaluated, monitored, or treated as if it exists) are acceptable and can be coded in the inpatient setting, when documented at the
time of discharge.
Thank you,
DOUGLAS Greer RN
CDI Specialist
available via tiget text
Please use your independent medical judgment in providing your response.
[2025-01-09 11:35] LABS: Glucose - Point of Care 237 mg/dl (70-99)
--- NOTE | 2025-01-09 12:08 | W.PN.NEPH.PH ---
Today's Communication / Plan
-
cont lasix
Assessment/Plan
-
Impression:
Hypoxic respiratory failure/proBNP 53442
Recent non-ST elevation [place], troponin falling
Three-vessel CAD by left heart cath, medical management
Hyponatremia, acute
MYLENE on CKD with baseline approximately 1.2
metabolic acidosis
Elevated LFTs
Plan:
Hyponatremia-improving with lasix suggest hypervolemia
MYLENE-likely CRS, bland UA and U na low 13, bladder scan 245cc, rt kidney 8.2cm, non acute on limited US
cr slow to improve at 1.6, cont lasix still
monitor daily wts
Hold statin, improving LFTs
monitor soft BPs
follow h/h
Follow BMP
d/w nursing
-
-
Date of Service: January 09, 2025
CC / HPI / ROS
-
Chief Complaint:
Hyponatremia
MYLENE
History of Present Illness:
creatinine no change at 1.6
sodium better at 132
non oliguric with condom catheter
Review of Systems:
difficult to communicate with language barrier
no fever , on O2 2lit
wt down
Labs
-
Labs:
WBC 9.0 10^3/uL (4.8-10.8) 01/09/25 04:58
RBC 2.90 10^6/uL (4.70-6.10) L 01/09/25 04:58
Hgb 8.9 g/dL (13.0-18.0) L 01/09/25 04:58
Hct 26.6 % (39.0-52.0) L 01/09/25 04:58
Plt Count 235 10^3/uL (130-400) D 01/09/25 04:58
Sodium 132 mmol/L (135-145) L 01/09/25 04:58
Potassium 3.9 mmol/L (3.5-5.1) 01/09/25 04:58
Chloride 99 mmol/L (98-107) 01/09/25 04:58
Carbon Dioxide 28 mmol/L (22-30) 01/09/25 04:58
BUN 56 mg/dl (9-20) H 01/09/25 04:58
Creatinine 1.6 mg/dL (0.7-1.3) H 01/09/25 04:58
eGFR 42.49 01/09/25 04:58
Glucose 115 mg/dl (70-99) H 01/09/25 04:58
Calcium 7.8 mg/dl (8.4-10.2) L 01/09/25 04:58
Phosphorus 4.1 mg/dl (2.5-4.5) 01/09/25 04:58
Kgl-K-Htwishjlnad Pept > 60175 pg/ml 01/07/25 14:56
Albumin 3.0 g/dl (3.5-5.0) L 01/09/25 04:58
Physical Exam
-
Vital Signs:
Vital Signs
Temp Pulse Resp BP Pulse Ox
97.4 F 114 24 105/60 96
01/09/25 11:20 01/09/25 10:00 01/09/25 10:00 01/09/25 08:00 01/09/25 10:00
Cardiovascular:: Regular rate and rhythm
Respiratory:: Bilateral: Coarse and Bilateral: Rhonchi
Lung Excursion:: Normal
Abdomen:: Nontender and Soft
Bowel Sounds:: Normal
Extremity Edema:: None: Bilateral: (trace)
Baker Catheter: No
Other Findings::
left elbow brusing
[2025-01-09] MEDS: NOVOLOG FLEXPEN-LOW RESISTANCE 2 UNITS SC (13:09)
--- NOTE | 2025-01-09 14:58 | W.PN.CD ---
Today's Communication / Plan
-
cont. diuresis
add metop today, ARB tomorrow
discussion of ultimate plan, PCI vs. medical management / palliative care, in coming days once optimized
Impression / Plan
-
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
in acute exacerbation of HF and w/ NSTEMI who presented due to concerns of worsening shortness of breath
#Acute Exacerbation of Chronic HFmrEF
- Elevated proBNP >27,000, CXR findings suggestive of worsening pulm edema compared to prior admission, significant hyponatremia, weight gain
- Last echo (12/28) LVEF 40-45%, possible hypokinesis of the basal to mid inferior/inferolateral wall
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
- long discussion with family last admission with decision made to treat medically given the patient was without symptoms and PCI would be high risk; in setting of recurrent hospitalization, this should be rediscussed
- lactate wnl
For now:
- continue 40mg IV Lasix BID
- requiring only 2L NC, which is his baseline; titrate as needed for O2 sat >92%
- start metop 12.5 BID, consolidate to long acting before discharge
- further GDMT pending renal recovery, GFR improving, should add ARB and SGLT2i prior to discharge
#MYLENE on CKD
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
- likely 2/2 volume overload in setting of ADHF, examines warm
- pt with history of BPH, on terazosin
- trend bmp
#Hypervolemic Hyponatremia, secondary to acute exacerbation of HFmrEF
- IV diuresis as above
- c/t trend BMP
- nephro consulted; appreciate recs
#[place] with cardiogenic shock on prior admission
#Elevated troponin
#CAD with triple vessel disease
- ECG showing ST depression in V3-V6
- downtrending troponin
- c/w aspirin, plavix
- holding statin 2/2 transaminitis, restart prior to discharge
Last admission, PCI was deferred due to functional status, significant comorbidities and high risk of mortality associated with intervention. Will proceed with diuresis as above, but may revisit this conversation with family in the following days if
they wish to be aggressive moving forward. Otherwise, would consider palliative discussions.
Physical Exam
Vital Signs/Labs
Vital Signs
Temp Pulse Resp BP Pulse Ox
36.3 C 114 24 105/60 96
01/09/25 11:20 01/09/25 10:00 01/09/25 10:00 01/09/25 08:00 01/09/25 10:00
01/08/25 01/09/25 01/10/25
06:59 06:59 06:59
Actual Weight 57.238 kg 55.2 kg 55.2 kg
01/09/25 04:58
01/09/25 04:58
Magnesium 2.4 mg/dl (1.6-2.3) H 01/09/25 04:58
01/07/25
14:56
Ngj-E-Dkfxeppwcxg Pept > 00741
LAB Results
01/07/25 01/07/25
14:56 23:37
Troponin I 4.330 H* 3.490 H*
Physical Exam
Constitutional: Comfortable
Cardiovascular: Rhythm & rate is regular
Respiratory: Respiratory effort normal
Neuro/Psych: AO x 3
Data Reviewed
-
Date of Service: January 09, 2025
Medical Decision Making: Reviewed Test Results
Labs: Labs Reviewed by me
[2025-01-09 17:58] LABS: Glucose - Point of Care 171 mg/dl (70-99)
[2025-01-09] MEDS: NOVOLOG FLEXPEN-LOW RESISTANCE 1 UNITS SC (18:08)
[2025-01-09] MEDS: HYTRIN 1 MG PO (20:13)
[2025-01-09] MEDS: LOPRESSOR 12.5 MG PO (20:14)
[2025-01-09 21:38] LABS: Glucose - Point of Care 236 mg/dl (70-99)
[2025-01-10] VITALS (15 sets, daily range): BP systolic 93–113; BP diastolic 57–71; BMI 21.8
--- NOTE | 2025-01-10 00:46 | PTCARENOTE ---
assumed care of patient. VSS. pt able to nod yes or no but does not provide any verbal responses. daughter a bedside to help translate. pt able to take pills crushed in pudding per daughter request. condom cath intact draining yellow urine. order
for bilateral mitts obtained as patient frequently pulls at wires. mitts applied per daughter request. oral care done. q2t. bed alarm on. care ongoing.
[2025-01-10 05:38] LABS: Hematocrit 27.0 % (39.0-52.0); Hemoglobin 9.1 g/dL (13.0-18.0); Mean Corp Hgb Conc. 33.7 g/dL (33.0-37.0); Mean Corpuscular Volume 95.4 fL (80.0-94.0); Platelet Count 261 10^3/uL (130-400); Red Cell Dist. Width 13.7 % (11.5-14.5)
[2025-01-10 05:48] LABS: ALT (SGPT) 113 U/L (0-50); AST (SGOT) 36 U/L (17-59); Albumin 2.9 g/dl (3.5-5.0); Alkaline Phosphatase 99 U/L (38-126); Blood Urea Nitrogen 50 mg/dl (9-20); Calcium 8.0 mg/dl (8.4-10.2); Carbon Dioxide 31 mmol/L (22-30); Chloride 102 mmol/L (98-107); Estimated Creatinine Clearance 31 ml/min; Glucose 116 mg/dl (70-99); Potassium 3.5 mmol/L (3.5-5.1); Sodium 136 mmol/L (135-145); Total Protein 5.3 g/dl (6.3-8.2); eGFR 49.87
[2025-01-10 08:07] LABS: Glucose - Point of Care 142 mg/dl (70-99)
--- NOTE | 2025-01-10 08:25 | W.PN.HOSP.TC ---
Today's Communication/Plan
-
see bold
Assessment / Plan
Assessment / Plan
Assessment/plan:
#Subacute hypoxic respiratory failure, onset 12/28/24
#Acute heart failure with mildly reduced ejection fraction
#Acute kidney injury on stage III CKD due to cardiorenal syndrome
Appreciate nephrology input, continue IV lasix BID
Cardiology added metoprolol to tartrate 12.5 mg twice a day
Hypoxia resolved, now on room air. He was requiring 3 L previously
Trend creatinine, trend daily weights
#Acute on chronic hypervolemic hyponatremia
Appreciate nephrology input, suspect hypervolemic
Sodium 136 today, was 119 upon admission
Continue fluid restriction, IV Lasix, trend sodium
#Recent NSTEMI
#Recent multivessel CAD
Due to patient's multiple medical comorbidities, family decided to proceed with medical management instead of PCI
Troponins now downtrending, continue aspirin, Plavix. Cardiology added metoprolol to tartrate 12.5 mg twice a day
Interventional cardiology now considering Impella supported LM-LAD PCI with rescue POBA of the largely collateralized LCx, but would be high risk
#Dysphagia
Tolerating soft/bite-size diet with mildly thickened nectar liquids
#Transaminitis
Due to hepatic congestion
#Glucose intolerance
Hemoglobin A1c 5.9
#Dementia
#Mostly nonverbal status
Continue Namenda
Cleared by speech for soft/bite sized diet with thin liquids
#Gastroesophageal reflux disease
PPI
DVT prophylaxis� SC heparin
Updated daughter at bedside 01/10
Total time spent to see the patient on the floor, examine the patient, review data and lab results, discuss treatment plan with patient, nursing staff around 50 minutes.
Physical Exam
General: No acute distress
HEENT: Normocephalic, Atraumatic, EOMI, MMM
Respiratory: Bibasilar crackles
Cardiac: Normal S1/S2, Regular Rate and Rhythm
GI: Soft, Nontender, Nondistended, Normal Bowel Sounds
Extremities: No Clubbing, Cyanosis
Mild LE Edema
Neuro: Pleasantly confused
Anticipated Discharge: > 48 hours
Subjective/Interval History
-
Date of Service: January 10, 2025
Patient is tolerating his diet. He is now on room air. No fever, no vomiting.
Objective Data
-
Labs:
Laboratory Results
01/10/25
05:10
WBC 10.0
Hgb 9.1 L
Hct 27.0 L
Plt Count 261
Sodium 136
Potassium 3.5
Chloride 102
Carbon Dioxide 31 H
BUN 50 H
Creatinine 1.4 H
Glucose 116 H
Calcium 8.0 L
Total Bilirubin 1.1
AST 36
ALT 113 H
Alkaline Phosphatase 99
Vital Signs:
Vital Signs
Temp Pulse Resp BP Pulse Ox
97.8 F 96 17 103/63 100
01/10/25 07:34 01/10/25 06:00 01/10/25 06:00 01/10/25 06:00 01/10/25 06:00
I&O
01/09/25 01/10/25 01/11/25
06:59 06:59 06:59
Intake Total 760 / 760 720 / 720
Output Total 4175 / 4175 2049
Balance -3415 / -3415 -1330 / -1330
[2025-01-10] MEDS: NAMENDA 10 MG PO (09:41)
[2025-01-10] MEDS: PROTONIX 40 MG PO (09:41)
[2025-01-10] MEDS: PLAVIX 75 MG PO (09:41)
[2025-01-10] MEDS: LOPRESSOR 12.5 MG PO ×2 (09:41→20:15)
[2025-01-10] MEDS: ASPIR LOW (ENTERIC COATED) 81 MG PO (09:41)
[2025-01-10] MEDS: LASIX 40 MG IV ×2 (09:42→16:44)
[2025-01-10] MEDS: NOVOLOG FLEXPEN-LOW RESISTANCE SC ×2 (09:43→17:48)
[2025-01-10] MEDS: HEPARIN 5000 UNITS SC ×2 (09:43→20:15)
--- NOTE | 2025-01-10 10:02 | W.PN.NEPH.PH ---
Today's Communication / Plan
-
diurese
Assessment/Plan
-
Impression:
Hypoxic respiratory failure/proBNP 99569
Recent non-ST elevation [place], troponin falling
Three-vessel CAD by left heart cath, medical management
Hyponatremia, acute
MYLENE on CKD with baseline approximately 1.2
metabolic acidosis
Elevated LFTs
Plan:
continue IV lasix today
monitor daily wts
follow LFTs
Follow BMP
will need lasix at least 40mg daily on d/c
-
-
Date of Service: January 10, 2025
CC / HPI / ROS
-
Chief Complaint:
Hyponatremia
MYLENE
History of Present Illness:
MYLENE/Cr down to 1.4
Na up to 136
diuresing well with IV lasix for decompensated HF
non oliguric with condom catheter
BP stable
Review of Systems:
no fever , on O2 2lit
wt down
Labs
-
Labs:
WBC 10.0 10^3/uL (4.8-10.8) 01/10/25 05:10
RBC 2.83 10^6/uL (4.70-6.10) L 01/10/25 05:10
Hgb 9.1 g/dL (13.0-18.0) L 01/10/25 05:10
Hct 27.0 % (39.0-52.0) L 01/10/25 05:10
Plt Count 261 10^3/uL (130-400) 01/10/25 05:10
Sodium 136 mmol/L (135-145) 01/10/25 05:10
Potassium 3.5 mmol/L (3.5-5.1) 01/10/25 05:10
Chloride 102 mmol/L (98-107) 01/10/25 05:10
Carbon Dioxide 31 mmol/L (22-30) H 01/10/25 05:10
BUN 50 mg/dl (9-20) H 01/10/25 05:10
Creatinine 1.4 mg/dL (0.7-1.3) H 01/10/25 05:10
eGFR 49.87 01/10/25 05:10
Glucose 116 mg/dl (70-99) H 01/10/25 05:10
Calcium 8.0 mg/dl (8.4-10.2) L 01/10/25 05:10
Phosphorus 4.1 mg/dl (2.5-4.5) 01/09/25 04:58
Bga-H-Okkpjbahvgl Pept > 86953 pg/ml 01/07/25 14:56
Albumin 2.9 g/dl (3.5-5.0) L 01/10/25 05:10
Physical Exam
-
Vital Signs:
Vital Signs
Temp Pulse Resp BP Pulse Ox
97.8 F 96 17 111/71 100
01/10/25 07:34 01/10/25 09:42 01/10/25 06:00 01/10/25 09:42 01/10/25 06:00
Cardiovascular:: Regular rate and rhythm
Respiratory:: Bilateral: Coarse
Lung Excursion:: Normal
Abdomen:: Nontender and Soft
Bowel Sounds:: Normal
Extremity Edema:: None: Bilateral:
[2025-01-10 12:12] LABS: Glucose - Point of Care 197 mg/dl (70-99)
[2025-01-10] MEDS: NOVOLOG FLEXPEN-LOW RESISTANCE 1 UNITS SC (12:12)
--- NOTE | 2025-01-10 17:03 | W.PN.CD ---
Today's Communication / Plan
-
cont. diuresis
add TANISHA/ARB tomorrow if Cr continues to improve
Impression / Plan
-
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
in acute exacerbation of HF and w/ NSTEMI who presented due to concerns of worsening shortness of breath
#Acute Exacerbation of Chronic HFmrEF
- Elevated proBNP >27,000, CXR findings suggestive of worsening pulm edema compared to prior admission, significant hyponatremia, weight gain
- Last echo (12/28) LVEF 40-45%, possible hypokinesis of the basal to mid inferior/inferolateral wall
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
- long discussion with family last admission with decision made to treat medically given the patient was without symptoms and PCI would be high risk; in setting of recurrent hospitalization, this should be rediscussed
- lactate wnl
For now:
- continue 40mg IV Lasix BID
- requiring only 2L NC, which is his baseline; titrate as needed for O2 sat >92%
- cont. metop 12.5 BID, consolidate to long acting before discharge
- further GDMT pending renal recovery, GFR improving, should add ARB tomorrow (01/11) and SGLT2i prior to discharge
#MYLENE on CKD
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
- likely 2/2 volume overload in setting of ADHF, examines warm
- pt with history of BPH, on terazosin
- trend bmp
#Hypervolemic Hyponatremia, secondary to acute exacerbation of HFmrEF
- IV diuresis as above
- c/t trend BMP
- nephro consulted; appreciate recs
#[place] with cardiogenic shock on prior admission
#Elevated troponin
#CAD with triple vessel disease
- ECG showing ST depression in V3-V6
- downtrending troponin
- c/w aspirin, plavix
- holding statin 2/2 transaminitis, restart prior to discharge
Extensive discussion with patient's two daughters today. Plan will be for further medical optimization over the weekend with likely plan for re-attempt at outpatient medical management with maximally tolerated GDMT, weight based diuretic therapy,
and close outpatient cardiology follow up. If patient again fails outpatient medical management with readmission for heart failure or ACS, will discuss risk benefit of high risk PCI vs. hospice.
Physical Exam
Vital Signs/Labs
Vital Signs
Temp Pulse Resp BP Pulse Ox
36.6 C 94 14 107/63 97
01/10/25 14:58 01/10/25 16:44 01/10/25 16:00 01/10/25 16:44 01/10/25 12:00
01/09/25 01/10/25 01/11/25
06:59 06:59 06:59
Actual Weight 55.2 kg 54 kg
01/10/25 05:10
01/10/25 05:10
Magnesium 2.4 mg/dl (1.6-2.3) H 01/09/25 04:58
01/07/25
14:56
Nzx-T-Hgihhopxzon Pept > 61113
LAB Results
01/07/25
23:37
Troponin I 3.490 H*
Physical Exam
Constitutional: Comfortable
Cardiovascular: Rhythm & rate is regular
Respiratory: Respiratory effort normal
Neuro/Psych: AO x 3
Data Reviewed
-
Date of Service: January 10, 2025
Medical Decision Making: Reviewed Test Results
Labs: Labs Reviewed by me
--- NOTE | 2025-01-10 17:28 | CM ---
Following up with Patient. Patient came from the ICU. Hospitalist Notes and RN stated patient is not ready, still greater than 48 hours. TAMERA Will saw that PT/OT recommended SNF so able to talk to the daughter Dustin. Dustin was not sure initially
about SNF, but now leaning towards it. TAMERA Will explained the process from Hospital discharge to what to generally expect at the SNF, and gave her a list of SNF to choose from. TAMERA Will asked for at least 5 based on his insurance. Dtr aware that a
Marine Engineer [employer] colleague may stop in over the weekend to obtain her choices.
PLAN: SNF when ready.
[2025-01-10 17:58] LABS: Glucose - Point of Care 149 mg/dl (70-99)
[2025-01-10] MEDS: HYTRIN 1 MG PO (20:15)
[2025-01-10 23:12] LABS: Glucose - Point of Care 161 mg/dl (70-99)
[2025-01-11] VITALS (12 sets, daily range): BP systolic 98–115; BP diastolic 55–79; BMI 21.8
[2025-01-11 05:06] LABS: Hematocrit 27.7 % (39.0-52.0); Hemoglobin 9.2 g/dL (13.0-18.0); Mean Corp Hgb Conc. 33.2 g/dL (33.0-37.0); Mean Corpuscular Volume 96.2 fL (80.0-94.0); Platelet Count 271 10^3/uL (130-400); Red Cell Dist. Width 14.1 % (11.5-14.5)
[2025-01-11 05:29] LABS: ALT (SGPT) 80 U/L (0-50); AST (SGOT) 28 U/L (17-59); Albumin 2.9 g/dl (3.5-5.0); Alkaline Phosphatase 88 U/L (38-126); Blood Urea Nitrogen 42 mg/dl (9-20); Calcium 8.1 mg/dl (8.4-10.2); Carbon Dioxide 33 mmol/L (22-30); Chloride 100 mmol/L (98-107); Estimated Creatinine Clearance 33 ml/min; Glucose 115 mg/dl (70-99); Potassium 3.9 mmol/L (3.5-5.1); Sodium 136 mmol/L (135-145); Total Protein 5.4 g/dl (6.3-8.2); eGFR 54.51
[2025-01-11 08:01] LABS: Glucose - Point of Care 120 mg/dl (70-99)
[2025-01-11] MEDS: ASPIR LOW (ENTERIC COATED) 81 MG PO (08:48)
[2025-01-11] MEDS: NAMENDA 10 MG PO (08:48)
[2025-01-11] MEDS: LASIX 40 MG IV (08:48)
[2025-01-11] MEDS: LOPRESSOR 12.5 MG PO ×2 (08:48→19:56)
[2025-01-11] MEDS: PLAVIX 75 MG PO (08:48)
[2025-01-11] MEDS: NOVOLOG FLEXPEN-LOW RESISTANCE SC ×2 (08:48→18:09)
[2025-01-11] MEDS: PROTONIX 40 MG PO (08:48)
[2025-01-11] MEDS: HEPARIN 5000 UNITS SC (08:48)
--- NOTE | 2025-01-11 09:15 | W.PN.HOSP.TC ---
Today's Communication/Plan
-
see bold
Assessment / Plan
Assessment / Plan
Assessment/plan:
#Subacute hypoxic respiratory failure, onset 12/28/24
#Acute heart failure with mildly reduced ejection fraction
#Acute kidney injury on stage III CKD due to cardiorenal syndrome
Appreciate nephrology input, status post IV Lasix, now on Lasix 40 mg p.o. daily
Cardiology added metoprolol to tartrate 12.5 mg twice a day 01/10, nephrology added Farxiga 01/11
Hypoxia resolved, now on room air. He was requiring 3 L previously
Trend creatinine, trend daily weights
#Acute on chronic hypervolemic hyponatremia
Appreciate nephrology input, suspect hypervolemic
Sodium 136 today, was 119 upon admission
Continue fluid restriction, po Lasix, trend sodium
#Recent NSTEMI
#Recent multivessel CAD
Due to patient's multiple medical comorbidities, family decided to proceed with medical management instead of PCI
Troponins now downtrending, continue aspirin, Plavix. Cardiology added metoprolol to tartrate 12.5 mg twice a day
Interventional cardiology discussed high risk PCI versus GDMT w/ pt's dtrs
Plan for GDMT with beta-radha, Farxiga. Will need ARB when able
If patient does not improve with GDMT, would have to consider risks versus benefits of high risk PCI versus hospice
#Dysphagia
Tolerating soft/bite-size diet with mildly thickened nectar liquids
#Transaminitis
Due to hepatic congestion
#Glucose intolerance
Hemoglobin A1c 5.9
#Dementia
#Mostly nonverbal status
Continue Namenda
Cleared by speech for soft/bite sized diet with thin liquids
#Gastroesophageal reflux disease
PPI
DVT prophylaxis� SC lovenox
Updated daughter at bedside 01/10
Total time spent to see the patient on the floor, examine the patient, review data and lab results, discuss treatment plan with patient, nursing staff around 40 minutes.
Physical Exam
General: No acute distress
HEENT: Normocephalic, Atraumatic, EOMI, MMM
Respiratory: Bibasilar crackles
Cardiac: Normal S1/S2, Regular Rate and Rhythm
GI: Soft, Nontender, Nondistended, Normal Bowel Sounds
Extremities: No Clubbing, Cyanosis
Neuro: Pleasantly confused
Anticipated Discharge: 24 - 48 hours
Subjective/Interval History
-
Date of Service: January 11, 2025
No acute events. Patient is tolerating his diet. No fever, no vomiting.
Objective Data
-
Labs:
Laboratory Results
01/11/25
04:40
WBC 8.4
Hgb 9.2 L
Hct 27.7 L
Plt Count 271
Sodium 136
Potassium 3.9
Chloride 100
Carbon Dioxide 33 H
BUN 42 H
Creatinine 1.3
Glucose 115 H
Calcium 8.1 L
Total Bilirubin 1.2
AST 28
ALT 80 H
Alkaline Phosphatase 88
Vital Signs:
Vital Signs
Temp Pulse Resp BP Pulse Ox
97.6 F 92 22 105/66 97
01/11/25 08:27 01/11/25 08:00 01/11/25 08:00 01/11/25 08:00 01/10/25 22:04
I&O
01/10/25 01/11/25 01/12/25
06:59 06:59 06:59
Intake Total 720 / 720
Output Total 2049 1500 / 1500
Balance -1330 / -1330 -1500 / -1500
--- NOTE | 2025-01-11 10:15 | W.PN.NEPH.PH ---
Today's Communication / Plan
-
po lasix
Assessment/Plan
-
Impression:
Hypoxic respiratory failure/proBNP 55143
Recent non-ST elevation [place], troponin falling
Three-vessel CAD by left heart cath, medical management
Hyponatremia, acute
MYLENE on CKD with baseline approximately 1.2
metabolic acidosis
Elevated LFTs
Plan:
switch to po lasix 40mg daily
ok for SGLT2i
I doubt BP will support RASi
monitor daily wts
follow LFTs
-
-
Date of Service: January 11, 2025
CC / HPI / ROS
-
Chief Complaint:
Hyponatremia
MYLENE
History of Present Illness:
MYLENE/Cr down to 1.3
Na normal
diuresing well with IV lasix for decompensated HF
non oliguric with condom catheter
BP stable
Review of Systems:
no fever
eating
Labs
-
Labs:
WBC 8.4 10^3/uL (4.8-10.8) 01/11/25 04:40
RBC 2.88 10^6/uL (4.70-6.10) L 01/11/25 04:40
Hgb 9.2 g/dL (13.0-18.0) L 01/11/25 04:40
Hct 27.7 % (39.0-52.0) L 01/11/25 04:40
Plt Count 271 10^3/uL (130-400) 01/11/25 04:40
Sodium 136 mmol/L (135-145) 01/11/25 04:40
Potassium 3.9 mmol/L (3.5-5.1) 01/11/25 04:40
Chloride 100 mmol/L (98-107) 01/11/25 04:40
Carbon Dioxide 33 mmol/L (22-30) H 01/11/25 04:40
BUN 42 mg/dl (9-20) H 01/11/25 04:40
Creatinine 1.3 mg/dL (0.7-1.3) 01/11/25 04:40
eGFR 54.51 01/11/25 04:40
Glucose 115 mg/dl (70-99) H 01/11/25 04:40
Calcium 8.1 mg/dl (8.4-10.2) L 01/11/25 04:40
Phosphorus 4.1 mg/dl (2.5-4.5) 01/09/25 04:58
Khr-X-Qzqzudhvdzz Pept > 27148 pg/ml 01/07/25 14:56
Albumin 2.9 g/dl (3.5-5.0) L 01/11/25 04:40
Physical Exam
-
Vital Signs:
Vital Signs
Temp Pulse Resp BP Pulse Ox
97.6 F 81 22 105/66 97
01/11/25 08:27 01/11/25 10:03 01/11/25 08:00 01/11/25 08:00 01/10/25 22:04
Cardiovascular:: Regular rate and rhythm
Respiratory:: Bilateral: Coarse
Lung Excursion:: Normal
Abdomen:: Nontender and Soft
Bowel Sounds:: Normal
Extremity Edema:: None: Bilateral:
[2025-01-11] MEDS: NOVOLOG FLEXPEN-LOW RESISTANCE 2 UNITS SC (12:11)
[2025-01-11] MEDS: FARXIGA 10 MG PO (12:11)
[2025-01-11 12:21] LABS: Glucose - Point of Care 221 mg/dl (70-99)
--- NOTE | 2025-01-11 13:29 | W.PN.CD ---
Today's Communication / Plan
-
start lisinopril 2.5mg po daily
Impression / Plan
-
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
in acute exacerbation of HF and w/ NSTEMI who presented due to concerns of worsening shortness of breath
#Acute Exacerbation of Chronic HFmrEF
- Elevated proBNP >27,000, CXR findings suggestive of worsening pulm edema compared to prior admission, significant hyponatremia, weight gain
- Last echo (12/28) LVEF 40-45%, possible hypokinesis of the basal to mid inferior/inferolateral wall
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
- long discussion with family last admission with decision made to treat medically given the patient was without symptoms and PCI would be high risk; in setting of recurrent hospitalization, this should be rediscussed
- lactate wnl
For now:
- continue 40mg IV Lasix BID--transitioned po lasix for tomorrow
- requiring only 2L NC, which is his baseline; titrate as needed for O2 sat >92%
- cont. metop 12.5 BID, consolidate to long acting before discharge
- further GDMT pending renal recovery, GFR improving, will add a small dose of lisinopril (01/11)
-nephrology added SGLT2i
#MYLENE on CKD
- improving
- likely 2/2 volume overload in setting of ADHF, examines warm
- pt with history of BPH, on terazosin
- trend bmp
#Hypervolemic Hyponatremia, secondary to acute exacerbation of HFmrEF
- IV diuresis as above, transitioned to po
- c/t trend BMP
- nephro consulted; appreciate recs
#TX with cardiogenic shock on prior admission
#Elevated troponin
#CAD with triple vessel disease
- ECG showing ST depression in V3-V6
- downtrending troponin
- c/w aspirin, plavix
- holding statin 2/2 transaminitis, restart prior to discharge
Per Dr Santos on 01/10/25 'Extensive discussion with patient's two daughters today. Plan will be for further medical optimization over the weekend with likely plan for re-attempt at outpatient medical management with maximally tolerated GDMT,
weight based diuretic therapy, and close outpatient cardiology follow up. If patient again fails outpatient medical management with readmission for heart failure or ACS, will discuss risk benefit of high risk PCI vs. hospice.'
Physical Exam
Vital Signs/Labs
Vital Signs
Temp Pulse Resp BP Pulse Ox
98.2 F 85 20 99/73 97
01/11/25 12:54 01/11/25 12:00 01/11/25 12:00 01/11/25 12:00 01/10/25 22:04
01/10/25 01/11/25 01/12/25
06:59 06:59 06:59
Actual Weight 119 lb 0.794 oz 119 lb 0.794 oz
01/11/25 04:40
01/11/25 04:40
Magnesium 2.4 mg/dl (1.6-2.3) H 01/09/25 04:58
01/07/25
14:56
Czv-N-Trhwenxflok Pept > 53071
Physical Exam
Constitutional: No acute distress
Cardiovascular: Rhythm & rate is regular, Pedal edema is absent, JVD pressure is normal, Systolic murmur absent and Diastolic murmur absent
Respiratory: Respiratory effort normal, Lungs clear to auscul., Wheeze Absent, Crackles Absent and Rhonchi Absent
Neuro/Psych: AO x 3
Data Reviewed
-
Date of Service: January 11, 2025
Medical Decision Making: Review of Case with other Provider (Dr Do Dr Aguirre: adding small dose of lisinopril)
EKG: Other (tele nsr)
[2025-01-11] MEDS: ZESTRIL 2.5 MG PO (18:04)
[2025-01-11] MEDS: LOVENOX 30 MG SC (18:04)
[2025-01-11 18:16] LABS: Glucose - Point of Care 108 mg/dl (70-99)
--- NOTE | 2025-01-11 19:09 | PTCARENOTE ---
OOB all day in recliner chair. Appetite good- requires supervision as he eats too much too fast. NSR on tele controlled rates [id number]. Urine output >1000ml this shift- using condom cath. No BM since admission- smear of stool this pm. Note for
on board. Daughters both visited today.
[2025-01-11 21:35] LABS: Glucose - Point of Care 179 mg/dl (70-99)
[2025-01-11] MEDS: HYTRIN 1 MG PO (23:38)
[2025-01-12] VITALS (14 sets, daily range): BP systolic 91–111; BP diastolic 52–79; BMI 21.5
[2025-01-12 05:52] LABS: Hematocrit 28.0 % (39.0-52.0); Hemoglobin 9.1 g/dL (13.0-18.0); Mean Corp Hgb Conc. 32.5 g/dL (33.0-37.0); Mean Corpuscular Volume 95.2 fL (80.0-94.0); Platelet Count 266 10^3/uL (130-400); Red Cell Dist. Width 14.1 % (11.5-14.5)
[2025-01-12 06:24] LABS: ALT (SGPT) 63 U/L (0-50); AST (SGOT) 26 U/L (17-59); Albumin 2.8 g/dl (3.5-5.0); Alkaline Phosphatase 81 U/L (38-126); Blood Urea Nitrogen 37 mg/dl (9-20); Calcium 8.1 mg/dl (8.4-10.2); Carbon Dioxide 31 mmol/L (22-30); Chloride 100 mmol/L (98-107); Estimated Creatinine Clearance 32 ml/min; Glucose 111 mg/dl (70-99); Potassium 3.6 mmol/L (3.5-5.1); Sodium 135 mmol/L (135-145); Total Protein 5.3 g/dl (6.3-8.2); eGFR 54.51
[2025-01-12 07:46] LABS: Glucose - Point of Care 111 mg/dl (70-99)
[2025-01-12] MEDS: NOVOLOG FLEXPEN-LOW RESISTANCE SC (08:23)
[2025-01-12] MEDS: LASIX 40 MG PO (08:24)
[2025-01-12] MEDS: ZESTRIL 2.5 MG PO (08:24)
[2025-01-12] MEDS: PLAVIX 75 MG PO (08:24)
[2025-01-12] MEDS: NAMENDA 10 MG PO (08:25)
[2025-01-12] MEDS: ASPIR LOW (ENTERIC COATED) 81 MG PO (08:25)
[2025-01-12] MEDS: PROTONIX 40 MG PO (08:25)
[2025-01-12] MEDS: FARXIGA 10 MG PO (08:25)
[2025-01-12] MEDS: LOPRESSOR 12.5 MG PO ×2 (08:25→21:20)
--- NOTE | 2025-01-12 08:27 | W.PN.CD ---
Today's Communication / Plan
-
continue current medications
observe
d/c planning
Impression / Plan
-
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
in acute exacerbation of HF and w/ NSTEMI who presented due to concerns of worsening shortness of breath
#Acute Exacerbation of Chronic HFmrEF
- Elevated proBNP >27,000, CXR findings suggestive of worsening pulm edema compared to prior admission, significant hyponatremia, weight gain
- Last echo (12/28) LVEF 40-45%, possible hypokinesis of the basal to mid inferior/inferolateral wall
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
- long discussion with family last admission with decision made to treat medically given the patient was without symptoms and PCI would be high risk; in setting of recurrent hospitalization, this should be rediscussed
- lactate wnl
For now:
- continue 40mg IV Lasix BID--transitioned po lasix for tomorrow
- requiring only 2L NC, which is his baseline; titrate as needed for O2 sat >92%
- cont. metop 12.5 BID, consolidate to long acting before discharge
- further GDMT pending renal recovery, GFR improving, added a small dose of lisinopril (01/11)
-nephrology added SGLT2i
-bp soft, cr stable conitnue current medications and dosing.
#MYLENE on CKD
- improving cr stable at 1.3
#Hypervolemic Hyponatremia, secondary to acute exacerbation of HFmrEF
- resolved
#ND with cardiogenic shock on prior admission
#Elevated troponin
#CAD with triple vessel disease
- ECG showing ST depression in V3-V6
- downtrending troponin
- c/w aspirin, plavix
- holding statin 2/2 transaminitis, restart prior to discharge
Per Dr Santos on 01/10/25 'Extensive discussion with patient's two daughters today. Plan will be for further medical optimization over the weekend with likely plan for re-attempt at outpatient medical management with maximally tolerated GDMT,
weight based diuretic therapy, and close outpatient cardiology follow up. If patient again fails outpatient medical management with readmission for heart failure or ACS, will discuss risk benefit of high risk PCI vs. hospice.'
Physical Exam
Vital Signs/Labs
Vital Signs
Temp Pulse Resp BP Pulse Ox
97.6 F 81 15 107/70 97
01/12/25 03:30 01/12/25 08:25 01/12/25 04:00 01/12/25 08:24 01/10/25 22:04
01/11/25 01/12/25 01/13/25
06:59 06:59 06:59
Actual Weight 119 lb 0.794 oz 117 lb 4.575 oz
01/12/25 05:41
01/12/25 05:41
Magnesium 2.4 mg/dl (1.6-2.3) H 01/09/25 04:58
01/07/25
14:56
Qjc-W-Bihfdyheehh Pept > [id number]
Physical Exam
Constitutional: No acute distress and Other (lethargic)
Cardiovascular: Rhythm & rate is regular, Pedal edema is absent, JVD pressure is normal and Systolic murmur absent
Respiratory: Respiratory effort normal, Lungs clear to auscul., Wheeze Absent, Crackles Absent and Rhonchi Absent
Neuro/Psych: AO x 3
Data Reviewed
-
Date of Service: January 12, 2025
Medical Decision Making: Review of Case with other Provider (Dr Aguirre and Dr Michel, continue current medication)
--- NOTE | 2025-01-12 10:54 | W.PN.HOSP.TC ---
Today's Communication/Plan
-
see bold
Assessment / Plan
Assessment / Plan
Assessment/plan:
#Subacute hypoxic respiratory failure, onset 12/28/24
#Acute heart failure with mildly reduced ejection fraction
#Acute kidney injury on stage III CKD due to cardiorenal syndrome
Appreciate nephrology input, status post IV Lasix, now on Lasix 40 mg p.o. daily
Cardiology added metoprolol tartrate 12.5 mg twice a day & lisinopril 2.5 mg daily, nephrology added Farxiga
Hypoxia resolved, now on room air. He was requiring 3 L previously
Trend creatinine, trend daily weights
#Acute on chronic hypervolemic hyponatremia
Appreciate nephrology input, suspect hypervolemic
Sodium now normal, was 119 upon admission
Continue fluid restriction, po Lasix, trend sodium
#Recent NSTEMI
#Recent multivessel CAD
Due to patient's multiple medical comorbidities, family decided to proceed with medical management instead of PCI
Troponins now downtrending, continue aspirin, Plavix. Cardiology added metoprolol to tartrate 12.5 mg twice a day & lisinopril 2.5 mg daily
Interventional cardiology discussed high risk PCI versus GDMT w/ pt's dtrs
Plan for GDMT with beta-radha, Farxiga, TANISHA
If patient does not improve with GDMT, would have to consider risks versus benefits of high risk PCI versus hospice
#Dysphagia
Tolerating soft/bite-size diet with mildly thickened nectar liquids
#Transaminitis
Due to hepatic congestion
#Glucose intolerance
Hemoglobin A1c 5.9
#Dementia
#Mostly nonverbal status
Continue Namenda
Cleared by speech for soft/bite sized diet with thin liquids
#Gastroesophageal reflux disease
PPI
DVT prophylaxis� SC lovenox
Updated daughter at bedside 01/12
Total time spent to see the patient on the floor, examine the patient, review data and lab results, discuss treatment plan with patient, nursing staff around 38 minutes.
Physical Exam
General: No acute distress
HEENT: Normocephalic, Atraumatic, EOMI, MMM
Respiratory: Bibasilar crackles
Cardiac: Normal S1/S2, Regular Rate and Rhythm
GI: Soft, Nontender, Nondistended, Normal Bowel Sounds
Extremities: No Clubbing, Cyanosis
Neuro: Pleasantly confused
Anticipated Discharge: 24 - 48 hours
Subjective/Interval History
-
Date of Service: January 12, 2025
Per daughter, patient is eating fine. No fever, no vomiting.
Objective Data
-
Labs:
Laboratory Results
01/12/25
05:41
WBC 7.4
Hgb 9.1 L
Hct 28.0 L
Plt Count 266
Sodium 135
Potassium 3.6
Chloride 100
Carbon Dioxide 31 H
BUN 37 H
Creatinine 1.3
Glucose 111 H
Calcium 8.1 L
Total Bilirubin 0.9
AST 26
ALT 63 H
Alkaline Phosphatase 81
Vital Signs:
Vital Signs
Temp Pulse Resp BP Pulse Ox
97 F 81 15 107/70 98
01/12/25 08:00 01/12/25 08:25 01/12/25 04:00 01/12/25 08:24 01/12/25 08:00
I&O
01/11/25 01/12/25 01/13/25
06:59 06:59 06:59
Intake Total 120 / 120
Output Total 1500 / 1500 1500 / 1500
Balance -1500 / -1500 -1380 / -1380
[2025-01-12] MEDS: NOVOLOG FLEXPEN-LOW RESISTANCE 2 UNITS SC (12:04)
[2025-01-12 12:07] LABS: Glucose - Point of Care 202 mg/dl (70-99)
--- NOTE | 2025-01-12 14:13 | W.PN.NEPH.PH ---
Today's Communication / Plan
-
follow BMP
Assessment/Plan
-
Impression:
Hypoxic respiratory failure/proBNP 63299
Recent non-ST elevation [place], troponin falling
Three-vessel CAD by left heart cath, medical management
Hyponatremia, acute
MYLENE on CKD with baseline approximately 1.2
metabolic acidosis
Elevated LFTs
Plan:
po lasix 40mg daily
on SGLT2i
on low dose ACEI, follow BMP
monitor daily wts
i reviewed with daughter that he is too high risk for coronary intervention
-
-
Date of Service: January 12, 2025
CC / HPI / ROS
-
Chief Complaint:
Hyponatremia
MYLENE
History of Present Illness:
MYLENE/Cr down to 1.3 stable
Na normal
diuresing well with po lasix for decompensated HF
non oliguric with condom catheter
BP stable
Review of Systems:
no fever
eating
Labs
-
Labs:
WBC 7.4 10^3/uL (4.8-10.8) 01/12/25 05:41
RBC 2.94 10^6/uL (4.70-6.10) L 01/12/25 05:41
Hgb 9.1 g/dL (13.0-18.0) L 01/12/25 05:41
Hct 28.0 % (39.0-52.0) L 01/12/25 05:41
Plt Count 266 10^3/uL (130-400) 01/12/25 05:41
Sodium 135 mmol/L (135-145) 01/12/25 05:41
Potassium 3.6 mmol/L (3.5-5.1) 01/12/25 05:41
Chloride 100 mmol/L (98-107) 01/12/25 05:41
Carbon Dioxide 31 mmol/L (22-30) H 01/12/25 05:41
BUN 37 mg/dl (9-20) H 01/12/25 05:41
Creatinine 1.3 mg/dL (0.7-1.3) 01/12/25 05:41
eGFR 54.51 01/12/25 05:41
Glucose 111 mg/dl (70-99) H 01/12/25 05:41
Calcium 8.1 mg/dl (8.4-10.2) L 01/12/25 05:41
Phosphorus 4.1 mg/dl (2.5-4.5) 01/09/25 04:58
Dkk-F-Noqxaozdbkt Pept > 51785 pg/ml 01/07/25 14:56
Albumin 2.8 g/dl (3.5-5.0) L 01/12/25 05:41
Physical Exam
-
Vital Signs:
Vital Signs
Temp Pulse Resp BP Pulse Ox
97.6 F 83 19 96/70 98
01/12/25 12:49 01/12/25 12:03 01/12/25 12:03 01/12/25 12:03 01/12/25 08:00
Cardiovascular:: Regular rate and rhythm
Respiratory:: Bilateral: Coarse
Lung Excursion:: Normal
Abdomen:: Nontender and Soft
Bowel Sounds:: Normal
Extremity Edema:: None: Bilateral:
[2025-01-12] MEDS: NOVOLOG FLEXPEN-LOW RESISTANCE 1 UNITS SC (17:23)
[2025-01-12] MEDS: LOVENOX 30 MG SC (17:24)
[2025-01-12 17:37] LABS: Glucose - Point of Care 164 mg/dl (70-99)
[2025-01-12] MEDS: LOPRESSOR PO (20:41)
[2025-01-12] MEDS: HYTRIN 1 MG PO (21:20)
[2025-01-12 21:31] LABS: Glucose - Point of Care 166 mg/dl (70-99)
[2025-01-13] VITALS (17 sets, daily range): BP systolic 82–127; BP diastolic 52–70; PULSE 90–94; O2SAT 98; BMI 22.3
[2025-01-13 05:57] LABS: Hematocrit 27.2 % (39.0-52.0); Hemoglobin 8.9 g/dL (13.0-18.0); Mean Corp Hgb Conc. 32.7 g/dL (33.0-37.0); Mean Corpuscular Volume 96.5 fL (80.0-94.0); Platelet Count 254 10^3/uL (130-400); Red Cell Dist. Width 14.1 % (11.5-14.5)
[2025-01-13 06:09] LABS: ALT (SGPT) 50 U/L (0-50); AST (SGOT) 25 U/L (17-59); Albumin 2.7 g/dl (3.5-5.0); Alkaline Phosphatase 73 U/L (38-126); Blood Urea Nitrogen 37 mg/dl (9-20); Calcium 8.0 mg/dl (8.4-10.2); Carbon Dioxide 30 mmol/L (22-30); Chloride 101 mmol/L (98-107); Estimated Creatinine Clearance 33 ml/min; Glucose 98 mg/dl (70-99); Potassium 3.7 mmol/L (3.5-5.1); Sodium 134 mmol/L (135-145); Total Protein 5.2 g/dl (6.3-8.2); eGFR 54.51
[2025-01-13 07:56] LABS: Glucose - Point of Care 97 mg/dl (70-99)
--- NOTE | 2025-01-13 08:16 | W.PN.CD ---
Today's Communication / Plan
-
Recheck weight. He is net neg 1.4L if I/O accurate so 4lb weight gain is unlikely
Continue Lasix PO 40mg daily
Continue low dose GDMT
Discharge planning
Impression / Plan
-
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
in acute exacerbation of HF and w/ NSTEMI who presented due to concerns of worsening shortness of breath
#Acute Exacerbation of Chronic HFmrEF
- Elevated proBNP >27,000, CXR findings suggestive of worsening pulm edema compared to prior admission, significant hyponatremia, weight gain
- Last echo (12/28) LVEF 40-45%, possible hypokinesis of the basal to mid inferior/inferolateral wall
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
- continue 40mg PO Lasix daily today; weight increased but bed weight, net neg 1.4L by I/O
- requiring only 2L NC, which is his baseline; titrate as needed for O2 sat >92%
- switch metoprolol to long-acting
- continue lisinopril and Farxiga
#MYLENE on CKD
- improving cr stable at 1.3
#Hypervolemic Hyponatremia, secondary to acute exacerbation of HFmrEF
- resolved
#[place] with cardiogenic shock on prior admission
#Elevated troponin
#CAD with triple vessel disease
- ECG showing ST depression in V3-V6
- downtrending troponin
- c/w aspirin, plavix
- holding statin 2/2 transaminitis, restart prior to discharge
Per Dr Santos on 01/10/25 'Extensive discussion with patient's two daughters today. Plan will be for further medical optimization over the weekend with likely plan for re-attempt at outpatient medical management with maximally tolerated GDMT,
weight based diuretic therapy, and close outpatient cardiology follow up. If patient again fails outpatient medical management with readmission for heart failure or ACS, will discuss risk benefit of high risk PCI vs. hospice.'
Physical Exam
Vital Signs/Labs
Vital Signs
Temp Pulse Resp BP Pulse Ox
97.5 F 88 16 107/70 97
01/13/25 07:37 01/13/25 04:00 01/13/25 04:00 01/13/25 04:00 01/13/25 00:00
01/12/25 01/13/25 01/14/25
06:59 06:59 06:59
Actual Weight 117 lb 4.575 oz 121 lb 11.123 oz
01/13/25 05:40
01/13/25 05:40
Magnesium 2.4 mg/dl (1.6-2.3) H 01/09/25 04:58
01/07/25
14:56
Lbz-T-Lwzgjomiwxm Pept > 49158
Physical Exam
Constitutional: No acute distress and Comfortable
Cardiovascular: Rhythm & rate is regular, Pedal edema is absent, S1S2 is normal and Murmur/rub/gallop absent
Respiratory: Respiratory effort normal and Lungs clear to auscul.
Data Reviewed
-
Date of Service: January 13, 2025
Medical Decision Making: Reviewed Test Results, Test Interpretation and Review of Case with other Provider
EKG: Tracing Personally Visualized and interpreted
Echo: Report Reviewed by me
X-Ray/CT/US/MRI/NUC/PET: Report Reviewed by me
Labs: Labs Reviewed by me
[2025-01-13] MEDS: NOVOLOG FLEXPEN-LOW RESISTANCE SC (08:29)
[2025-01-13] MEDS: LASIX 40 MG PO (08:57)
[2025-01-13] MEDS: ZESTRIL 2.5 MG PO (08:57)
[2025-01-13] MEDS: ASPIR LOW (ENTERIC COATED) 81 MG PO (08:57)
[2025-01-13] MEDS: LOPRESSOR 12.5 MG PO ×2 (08:57→20:00)
[2025-01-13] MEDS: FARXIGA 10 MG PO (08:57)
[2025-01-13] MEDS: PLAVIX 75 MG PO (08:58)
[2025-01-13] MEDS: PROTONIX 40 MG PO (08:58)
[2025-01-13] MEDS: NAMENDA 10 MG PO (09:13)
--- NOTE | 2025-01-13 09:55 | W.PN.HOSP.TC ---
Today's Communication/Plan
-
discharge planning
Assessment / Plan
Assessment / Plan
Physical Exam
General: No acute respiratory distress, chronically ill looking
HEENT: Normocephalic, Atraumatic, EOMI, MMM
Respiratory: Bibasilar crackles
Cardiac: Normal S1/S2, Regular Rate and Rhythm
GI: Soft, Nontender, Nondistended, Normal Bowel Sounds
Extremities: No Clubbing, Cyanosis
Neuro: Pleasantly confused
Psych: calm
Assessment/plan:
#Subacute hypoxic respiratory failure, onset 12/28/24
#Acute heart failure with mildly reduced ejection fraction
#Acute kidney injury on stage III CKD due to cardiorenal syndrome
Appreciate nephrology input, status post IV Lasix, now on Lasix 40 mg p.o. daily
Cardiology added metoprolol tartrate 12.5 mg twice a day & lisinopril 2.5 mg daily, nephrology added Farxiga
Hypoxia resolved, now on room air. He was requiring 3 L previously
Trend creatinine, trend daily weights
#Acute on chronic hypervolemic hyponatremia
Appreciate nephrology input, suspect hypervolemic
Sodium now normal, was 119 upon admission
Continue fluid restriction, po Lasix, trend sodium
#Recent NSTEMI
#Recent multivessel CAD
Due to patient's multiple medical comorbidities, family decided to proceed with medical management instead of PCI
Troponins now downtrending, continue aspirin, Plavix. Cardiology added metoprolol to tartrate 12.5 mg twice a day & lisinopril 2.5 mg daily
Interventional cardiology discussed high risk PCI versus GDMT w/ pt's dtrs
Plan for GDMT with beta-radha, Farxiga, TANISHA
If patient does not improve with GDMT, would have to consider risks versus benefits of high risk PCI versus hospice
#Dysphagia
Tolerating soft/bite-size diet with mildly thickened nectar liquids
#Transaminitis
Due to hepatic congestion
#Glucose intolerance
Hemoglobin A1c 5.9
#Dementia
#Mostly nonverbal status
Continue Namenda
Cleared by speech for soft/bite sized diet with thin liquids
#Gastroesophageal reflux disease
PPI
DVT prophylaxis� SC lovenox
Total time spent to see the patient on the floor, examine the patient, review data and lab results, discuss treatment plan with patient, nursing staff around 55 minutes.
Anticipated Discharge: Today
Subjective/Interval History
-
Date of Service: January 13, 2025
No fever or hypotension
Objective Data
-
Labs:
Laboratory Results
01/13/25
05:40
WBC 6.5
Hgb 8.9 L
Hct 27.2 L
Plt Count 254
Sodium 134 L
Potassium 3.7
Chloride 101
Carbon Dioxide 30
BUN 37 H
Creatinine 1.3
Glucose 98
Calcium 8.0 L
Total Bilirubin 1.1
AST 25
ALT 50
Alkaline Phosphatase 73
Vital Signs:
Vital Signs
Temp Pulse Resp BP Pulse Ox
97.5 F 90 16 97/57 97
01/13/25 07:37 01/13/25 08:57 01/13/25 04:00 01/13/25 08:57 01/13/25 00:00
I&O
01/12/25 01/13/25 01/14/25
06:59 06:59 06:59
Intake Total 120 / 120
Output Total 1500 / 1500
Balance -1380 / -1380
--- NOTE | 2025-01-13 11:50 | W.PN.NEPH.PH ---
Today's Communication / Plan
-
Continue fluid restriction and diuretics
Assessment/Plan
-
Impression:
Hypoxic respiratory failure/proBNP 83860
Recent non-ST elevation [place], troponin falling
Three-vessel CAD by left heart cath, medical management
Hyponatremia, acute
MYLENE on CKD with baseline approximately 1.2
metabolic acidosis
Elevated LFTs
Plan:
po lasix 40mg daily
on SGLT2i
on low dose ACEI, follow BMP
monitor daily wts
too high risk for coronary intervention
Sodium stable
-
-
Date of Service: January 13, 2025
CC / HPI / ROS
-
Chief Complaint:
Hyponatremia
MYLENE
History of Present Illness:
MYLENE/Cr down to 1.3 stable
Na normal
diuresing well with po lasix for decompensated HF
non oliguric with condom catheter
BP stable
Review of Systems:
no fever
eating
Labs
-
Labs:
WBC 6.5 10^3/uL (4.8-10.8) 01/13/25 05:40
RBC 2.82 10^6/uL (4.70-6.10) L 01/13/25 05:40
Hgb 8.9 g/dL (13.0-18.0) L 01/13/25 05:40
Hct 27.2 % (39.0-52.0) L 01/13/25 05:40
Plt Count 254 10^3/uL (130-400) 01/13/25 05:40
Sodium 134 mmol/L (135-145) L 01/13/25 05:40
Potassium 3.7 mmol/L (3.5-5.1) 01/13/25 05:40
Chloride 101 mmol/L (98-107) 01/13/25 05:40
Carbon Dioxide 30 mmol/L (22-30) 01/13/25 05:40
BUN 37 mg/dl (9-20) H 01/13/25 05:40
Creatinine 1.3 mg/dL (0.7-1.3) 01/13/25 05:40
eGFR 54.51 01/13/25 05:40
Glucose 98 mg/dl (70-99) 01/13/25 05:40
Calcium 8.0 mg/dl (8.4-10.2) L 01/13/25 05:40
Phosphorus 4.1 mg/dl (2.5-4.5) 01/09/25 04:58
Zsm-C-Qbaozkjdlvz Pept > 32596 pg/ml 01/07/25 14:56
Albumin 2.7 g/dl (3.5-5.0) L 01/13/25 05:40
Physical Exam
-
Vital Signs:
Vital Signs
Temp Pulse Resp BP Pulse Ox
97.7 F 90 16 97/57 97
01/13/25 11:45 01/13/25 08:57 01/13/25 04:00 01/13/25 08:57 01/13/25 00:00
Cardiovascular:: Regular rate and rhythm
Respiratory:: Bilateral: Coarse
Lung Excursion:: Normal
Abdomen:: Nontender and Soft
Bowel Sounds:: Normal
Extremity Edema:: None: Bilateral:
--- NOTE | 2025-01-13 12:23 | PTCARENOTE ---
Pt awake orienyed to self. Ate breakfast . Daughter now here. Awaiting placement in rehab.
[2025-01-13 12:27] LABS: Glucose - Point of Care 163 mg/dl (70-99)
[2025-01-13] MEDS: NOVOLOG FLEXPEN-LOW RESISTANCE 1 UNITS SC ×2 (12:45→17:27)
--- NOTE | 2025-01-13 16:14 | CM ---
F/U: TAMERA Will met with daughter and obtained the 5 choices of SNF. Hospitalist informed TAMERA Will that patient is ready to discharge. [facility]A [facility] and there is a bed tomorrow. PT/OT needed to see the patient so
asked Hospitalist for urgent orders per PT/OT who evaluated the patient in the late afternoon.
Insurance authorization PENDING: #[id number]
Faxed clinical to [place]: #[phone].
Daughter, [facility], and Hospitalist aware that insurance Authorization was submitted and hopefully back by tomorrow.
[2025-01-13 16:36] LABS: Glucose - Point of Care 153 mg/dl (70-99)
[2025-01-13] MEDS: LOVENOX 30 MG SC (17:31)
[2025-01-13 20:57] LABS: Glucose - Point of Care 196 mg/dl (70-99)
--- NOTE | 2025-01-13 21:04 | PTCARENOTE ---
assumed care of pt from dayshift RN after change of shift report. Pt opens eyes to verbal response, nods head appropriately, non Yoruba speaking. alert to self. daughter at bedside. b/l mitts in place per order see worklist intervention. pt in
larger soft brown bm, hygiene provided. assessment as documented. call light in reach.
[2025-01-13] MEDS: HYTRIN 1 MG PO (21:15)
[2025-01-14] VITALS (12 sets, daily range): BP systolic 91–108; BP diastolic 65–74; BMI 24.1; BMI 22.1
[2025-01-14 04:17] LABS: ALT (SGPT) 48 U/L (0-50); AST (SGOT) 34 U/L (17-59); Albumin 3.0 g/dl (3.5-5.0); Alkaline Phosphatase 92 U/L (38-126); Blood Urea Nitrogen 35 mg/dl (9-20); Calcium 8.1 mg/dl (8.4-10.2); Carbon Dioxide 30 mmol/L (22-30); Chloride 100 mmol/L (98-107); Estimated Creatinine Clearance 36 ml/min; Glucose 121 mg/dl (70-99); Potassium 4.7 mmol/L (3.5-5.1); Sodium 134 mmol/L (135-145); Total Protein 5.6 g/dl (6.3-8.2); eGFR > 60.00
[2025-01-14 08:25] LABS: Glucose - Point of Care 131 mg/dl (70-99)
[2025-01-14] MEDS: NOVOLOG FLEXPEN-LOW RESISTANCE SC (09:08)
[2025-01-14] MEDS: LOPRESSOR PO (09:08)
[2025-01-14] MEDS: LASIX 40 MG PO ×2 (09:24→17:27)
[2025-01-14] MEDS: PLAVIX 75 MG PO (09:24)
[2025-01-14] MEDS: ASPIR LOW (ENTERIC COATED) 81 MG PO (09:25)
[2025-01-14] MEDS: NAMENDA 10 MG PO (09:25)
[2025-01-14] MEDS: FARXIGA 10 MG PO (09:26)
[2025-01-14] MEDS: ZESTRIL PO (09:27)
[2025-01-14] MEDS: PROTONIX 40 MG PO (09:27)
[2025-01-14] MEDS: LOPRESSOR 12.5 MG PO ×2 (09:29→21:40)
--- NOTE | 2025-01-14 09:48 | W.PN.CD ---
Today's Communication / Plan
-
Increase Lasix to 40mg PO BID. Will need fluid/sodium restriction at home.
Continue low-dose GDMT. Resume statin.
Discharge planning
Impression / Plan
-
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
in acute exacerbation of HF and w/ NSTEMI who presented due to concerns of worsening shortness of breath.
Overall patient is improving and is now on maximally tolerated GDMT. We will attempt outpatient medical management of CAD/CHF but if he is readmitted, we will reconsider coronary intervention.
#Acute Exacerbation of Chronic HFmrEF
- Elevated proBNP >27,000, CXR findings suggestive of worsening pulm edema compared to prior admission, significant hyponatremia, weight gain
- Last echo (12/28) LVEF 40-45%, possible hypokinesis of the basal to mid inferior/inferolateral wall
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
- increase Lasix to 40mg BID; weight is up (though likely inaccurate, trend is concerning) and daughter thinks he has more swelling over past 2 days since switching to PO
- continue metoprolol, lisinopril and Farxiga
#MYLENE on CKD
- improving cr stable at 1.2
#Hypervolemic Hyponatremia, secondary to acute exacerbation of HFmrEF
- resolved
#IA with cardiogenic shock on prior admission
#Elevated troponin
#CAD with triple vessel disease
- ECG showing ST depression in V3-V6
- downtrending troponin
- c/w aspirin, plavix
- holding statin 2/2 transaminitis, restart today
Physical Exam
Vital Signs/Labs
Vital Signs
Temp Pulse Resp BP Pulse Ox
98.4 F 103 19 98/67 94
01/14/25 03:00 01/14/25 08:00 01/14/25 08:00 01/14/25 08:00 01/14/25 04:00
01/13/25 01/14/25 01/15/25
06:59 06:59 06:59
Actual Weight 121 lb 11.123 oz 131 lb 9.855 oz
01/13/25 05:40
01/14/25 03:46
Magnesium 2.4 mg/dl (1.6-2.3) H 01/09/25 04:58
01/07/25
14:56
Dgu-F-Cyrzlfhyczr Pept > 16739
Physical Exam
Constitutional: No acute distress and Comfortable
Cardiovascular: Rhythm & rate is regular, Pedal edema is absent, S1S2 is normal and Murmur/rub/gallop absent
Respiratory: Respiratory effort normal
Data Reviewed
-
Date of Service: January 14, 2025
Medical Decision Making: Reviewed Test Results, Test Interpretation and Review of Case with other Provider
EKG: Tracing Personally Visualized and interpreted
Echo: Report Reviewed by me
Labs: Labs Reviewed by me
[2025-01-14 12:02] LABS: Glucose - Point of Care 265 mg/dl (70-99)
--- NOTE | 2025-01-14 12:11 | CM ---
F/U: TAMERA Will received message from another daughter (Dtr) Yael concerned about him discharging because family feels he is not ready. TAMERA Will informed Dr. Avery who is planning to meet with the daughters Yael & Dustin today. A short time
later, Dr. Avery said that there is Cardiology that she wants to weigh in and that this patient is not ready today.
TAMERA Will is still waiting for insurance Auth from [facility], but that the patient will definitely stay another night. [facility] will have to give up the bed today, but said that there is a discharge there tomorrow and , but that there are
people also waiting for these beds too. TAMERA Will shared with the family (Dtr Dustin) that [facility] bed is gone today, but can see if there is a bed tomorrow or Th and that the Auth when approved, there could be a time limit to utilize that Auth
before starting over.
Dtr understood, RN aware. PLAN: SNF when ready.
--- NOTE | 2025-01-14 12:18 | W.PN.HOSP.TC ---
Today's Communication/Plan
-
will discuss with cardiology/ nephrology about the plan.
Assessment / Plan
Assessment / Plan
Physical Exam
General: No acute respiratory distress, chronically ill looking
HEENT: Normocephalic, Atraumatic, EOMI, MMM
Respiratory: Bibasilar crackles
Cardiac: Normal S1/S2, Regular Rate and Rhythm
GI: Soft, Nontender, Nondistended, Normal Bowel Sounds
Extremities: No Clubbing, Cyanosis
Neuro: Pleasantly confused, he ate his meal, seems lethargic, sleeping most of the time.
Psych: calm
Assessment/plan:
#Subacute hypoxic respiratory failure, onset 12/28/24
#Acute heart failure with mildly reduced ejection fraction
#Acute kidney injury on stage III CKD due to cardiorenal syndrome
Appreciate nephrology input, status post IV Lasix, now on Lasix 40 mg p.o. daily
Cardiology added metoprolol tartrate 12.5 mg twice a day & lisinopril 2.5 mg daily, nephrology added Farxiga
Hypoxia resolved, now on room air. He was requiring 3 L previously
Trend creatinine, trend daily weights
#Acute on chronic hypervolemic hyponatremia
Appreciate nephrology input, suspect hypervolemic
Sodium now normal, was 119 upon admission
Continue fluid restriction, po Lasix, trend sodium
#Recent NSTEMI
#Recent multivessel CAD
no chest pain
no hypoxia
Troponin was downtrending, continue aspirin, Plavix. Cardiology added metoprolol to tartrate 12.5 mg twice a day & lisinopril 2.5 mg daily
Interventional cardiology discussed high risk PCI versus GDMT w/ pt's dtrs
Plan for GDMT with beta-radha, Farxiga, TANISHA as Bp tolerates.
#Dysphagia
Tolerating soft/bite-size diet with mildly thickened nectar liquids
#Transaminitis
Due to hepatic congestion
#Glucose intolerance
Hemoglobin A1c 5.9
#Dementia
#Mostly nonverbal status
Unable to use interpretation line.
Continue Namenda
Cleared by speech for soft/bite sized diet with thin liquids
#Gastroesophageal reflux disease
PPI
DVT prophylaxis� SC lovenox
Total time spent to see the patient on the floor, examine the patient, review data and lab results, discuss treatment plan with patient, nursing staff around 55 minutes.
Anticipated Discharge: > 48 hours
Subjective/Interval History
-
Date of Service: January 14, 2025
Remains lethargic but ate his meal, sleeping most of the time
No pain
Objective Data
-
Labs:
Laboratory Results
01/14/25
03:46
Sodium 134 L
Potassium 4.7 D
Chloride 100
Carbon Dioxide 30
BUN 35 H
Creatinine 1.2
Glucose 121 H
Calcium 8.1 L
Total Bilirubin 0.8
AST 34
ALT 48
Alkaline Phosphatase 92
Vital Signs:
Vital Signs
Temp Pulse Resp BP Pulse Ox
97.8 F 109 22 91/69 94
01/14/25 11:43 01/14/25 10:00 01/14/25 10:00 01/14/25 10:00 01/14/25 04:00
I&O
01/13/25 01/14/25 01/15/25
06:59 06:59 06:59
Output Total 1500 / 1500
Balance -1500 / -1500
--- NOTE | 2025-01-14 12:25 | W.PN.NEPH.PH ---
Today's Communication / Plan
-
Continue p.o. Lasix twice daily
Assessment/Plan
-
Impression:
Hypoxic respiratory failure/proBNP 50538
Recent non-ST elevation [place], troponin falling
Three-vessel CAD by left heart cath, medical management
Hyponatremia, acute
MYLENE on CKD with baseline approximately 1.2
metabolic acidosis
Elevated LFTs
Plan:
po lasix 40mg daily
on SGLT2i
on low dose ACEI, follow BMP
monitor daily wts
too high risk for coronary intervention
Sodium stable
Weights are stable on recheck initial ones showed 3 kg increase from yesterday turned out to be inaccurate.
Okay with the change of twice daily p.o. Lasix as a better maintenance regimen.
Discussed with family at bedside as well as physicians/nurse
-
-
Date of Service: January 14, 2025
CC / HPI / ROS
-
Chief Complaint:
Hyponatremia
MYLENE
History of Present Illness:
MYLENE/Cr down to 1.3 stable
Na normal
diuresing well with po lasix for decompensated HF
non oliguric with condom catheter
BP stable
Review of Systems:
no fever
eating
Labs
-
Labs:
WBC 6.5 10^3/uL (4.8-10.8) 01/13/25 05:40
RBC 2.82 10^6/uL (4.70-6.10) L 01/13/25 05:40
Hgb 8.9 g/dL (13.0-18.0) L 01/13/25 05:40
Hct 27.2 % (39.0-52.0) L 01/13/25 05:40
Plt Count 254 10^3/uL (130-400) 01/13/25 05:40
Sodium 134 mmol/L (135-145) L 01/14/25 03:46
Potassium 4.7 mmol/L (3.5-5.1) D 01/14/25 03:46
Chloride 100 mmol/L (98-107) 01/14/25 03:46
Carbon Dioxide 30 mmol/L (22-30) 01/14/25 03:46
BUN 35 mg/dl (9-20) H 01/14/25 03:46
Creatinine 1.2 mg/dL (0.7-1.3) 01/14/25 03:46
eGFR > 60.00 01/14/25 03:46
Glucose 121 mg/dl (70-99) H 01/14/25 03:46
Calcium 8.1 mg/dl (8.4-10.2) L 01/14/25 03:46
Phosphorus 4.1 mg/dl (2.5-4.5) 01/09/25 04:58
Fao-B-Qhkmjpstfty Pept > 54820 pg/ml 01/07/25 14:56
Albumin 3.0 g/dl (3.5-5.0) L 01/14/25 03:46
Physical Exam
-
Vital Signs:
Vital Signs
Temp Pulse Resp BP Pulse Ox
97.8 F 109 22 91/69 94
01/14/25 11:43 01/14/25 10:00 01/14/25 10:00 01/14/25 10:00 01/14/25 04:00
Cardiovascular:: Regular rate and rhythm
Respiratory:: Bilateral: CTA
Lung Excursion:: Normal
Abdomen:: Nontender and Soft
Bowel Sounds:: Normal
Extremity Edema:: None: Bilateral:
[2025-01-14] MEDS: NOVOLOG FLEXPEN-LOW RESISTANCE 3 UNITS SC (13:16)
--- NOTE | 2025-01-14 15:26 | CARDSERVLU ---
Echocardiogram with [facility] completed after protocol screening completed. Allergies verified.
Patent IV site: _Right midline PICC____
IV site flushed with 0.9% NaCl pre and post administration.
Diluted bolus method utilized to enhance visualization of ventricular fernandez.
Total volume given: _2___ mL
Patient tolerated all procedures well without complications.
[2025-01-14 17:13] LABS: Glucose - Point of Care 183 mg/dl (70-99)
[2025-01-14] MEDS: NOVOLOG FLEXPEN-LOW RESISTANCE 1 UNITS SC (17:27)
[2025-01-14] MEDS: LOVENOX 30 MG SC (17:27)
--- NOTE | 2025-01-14 18:00 | PTCARENOTE ---
Patient speaks Cantanese only and has dementia at baseline. Daughter in room to help communicate and assist with care. Aspiration precautions and patient is a feed. VS stable. RA saT 96%-97%. SR on monitor.
[2025-01-14] MEDS: LIPITOR 40 MG PO (19:49)
[2025-01-14] MEDS: HYTRIN 1 MG PO (21:40)
[2025-01-14 21:54] LABS: Glucose - Point of Care 149 mg/dl (70-99)
[2025-01-15] VITALS (14 sets, daily range): BP systolic 92–123; BP diastolic 60–79; PULSE 90–91; O2SAT 96; BMI 22.1
[2025-01-15 06:40] LABS: Hematocrit 30.0 % (39.0-52.0); Hemoglobin 9.4 g/dL (13.0-18.0); Mean Corp Hgb Conc. 31.3 g/dL (33.0-37.0); Mean Corpuscular Volume 100.7 fL (80.0-94.0); Platelet Count 256 10^3/uL (130-400); Red Cell Dist. Width 14.6 % (11.5-14.5)
[2025-01-15 06:49] LABS: Blood Urea Nitrogen 33 mg/dl (9-20); Calcium 7.9 mg/dl (8.4-10.2); Carbon Dioxide 30 mmol/L (22-30); Chloride 100 mmol/L (98-107); Estimated Creatinine Clearance 33 ml/min; Glucose 118 mg/dl (70-99); Potassium 4.5 mmol/L (3.5-5.1); Sodium 132 mmol/L (135-145); eGFR 54.51
[2025-01-15 08:55] LABS: Glucose - Point of Care 104 mg/dl (70-99)
--- NOTE | 2025-01-15 09:51 | W.PN.HOSP.TC ---
Today's Communication/Plan
-
Likely discharge on 01/16
Assessment / Plan
Assessment / Plan
Physical Exam
General: No acute respiratory distress, chronically ill looking
HEENT: Normocephalic, Atraumatic, EOMI, MMM
Respiratory: Bibasilar crackles
Cardiac: Normal S1/S2, Regular Rate and Rhythm
GI: Soft, Nontender, Nondistended, Normal Bowel Sounds
Extremities: No Clubbing, Cyanosis
Neuro: Pleasantly confused, he ate his meal, seems lethargic, sleeping most of the time.
Psych: calm
Assessment/plan:
#Subacute hypoxic respiratory failure, onset 12/28/24
#Acute heart failure with severely reduced ejection fraction
#Acute kidney injury on stage III CKD due to cardiorenal syndrome
Appreciate nephrology input, status post IV Lasix, now on Lasix 40 mg p.o. daily
Cardiology added metoprolol tartrate 12.5 mg twice a day & lisinopril 2.5 mg daily, nephrology added Farxiga
Hypoxia resolved, now on room air. He was requiring 3 L previously
Echo 01/14 showed LVEF 25-30 % with global hypokinesis.
#Acute on chronic hypervolemic hyponatremia
Appreciate nephrology input, suspect hypervolemic
Sodium now normal, was 119 upon admission
Continue fluid restriction, po Lasix as BP tolerates
#Recent NSTEMI
#Recent multivessel CAD
no chest pain
no hypoxia
Troponin was downtrending, continue aspirin, Plavix. Cardiology added metoprolol to tartrate 12.5 mg twice a day & lisinopril 2.5 mg daily
Interventional cardiology discussed high risk PCI versus GDMT w/ pt's dtrs
Plan for GDMT with beta-radha, Farxiga, TANISHA as Bp tolerates.
#Dysphagia
Tolerating soft/bite-size diet with mildly thickened nectar liquids
#Transaminitis
Due to hepatic congestion
#Glucose intolerance
Hemoglobin A1c 5.9
#Dementia
#Mostly nonverbal status
Unable to use interpretation line.
Continue Namenda
Cleared by speech for soft/bite sized diet with thin liquids
#Gastroesophageal reflux disease
PPI
DVT prophylaxis� SC lovenox
Total time spent to see the patient on the floor, examine the patient, review data and lab results, discuss treatment plan with patient, nursing staff around 55 minutes.
Anticipated Discharge: Within 24 hours
Subjective/Interval History
-
Date of Service: January 15, 2025
No sob or chest pain
Looks better per daughter at bed side
Objective Data
-
Labs:
Laboratory Results
01/15/25
06:18
WBC 6.3
Hgb 9.4 L
Hct 30.0 L
Plt Count 256
Sodium 132 L
Potassium 4.5
Chloride 100
Carbon Dioxide 30
BUN 33 H
Creatinine 1.3
Glucose 118 H
Calcium 7.9 L
Vital Signs:
Vital Signs
Temp Pulse Resp BP Pulse Ox
98.1 F 85 14 92/64 98
01/15/25 03:00 01/15/25 06:00 01/15/25 06:00 01/15/25 06:00 01/14/25 23:44
I&O
01/14/25 01/15/25 01/16/25
06:59 06:59 06:59
Intake Total 765 / 765
Output Total 1500 / 1500 940 / 940
Balance -1500 / -1500 -175 / -175
--- NOTE | 2025-01-15 10:25 | PTCARENOTE ---
Removed mitt restraints from patient.
[2025-01-15] MEDS: FARXIGA 10 MG PO (10:27)
[2025-01-15] MEDS: ZESTRIL 2.5 MG PO (10:27)
[2025-01-15] MEDS: NOVOLOG FLEXPEN-LOW RESISTANCE SC ×2 (10:27→17:50)
[2025-01-15] MEDS: LOPRESSOR 12.5 MG PO ×2 (10:27→20:37)
[2025-01-15] MEDS: ASPIR LOW (ENTERIC COATED) 81 MG PO (10:27)
[2025-01-15] MEDS: PROTONIX 40 MG PO (10:28)
[2025-01-15] MEDS: LASIX 40 MG PO (10:28)
[2025-01-15] MEDS: PLAVIX 75 MG PO (10:28)
[2025-01-15] MEDS: NAMENDA 10 MG PO (10:36)
--- NOTE | 2025-01-15 11:04 | W.PN.CD ---
Today's Communication / Plan
-
Decrease Lasix to 40 mg once daily
Discharge planning
Cardiology will sign off at this time. Please call with any additional questions or concerns. We will see him in the office next Monday.
Impression / Plan
-
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
in acute exacerbation of HF and w/ NSTEMI who presented due to concerns of worsening shortness of breath.
Overall patient is improving and is now on maximally tolerated GDMT. We will attempt outpatient medical management of CAD/CHF but if he is readmitted, we will reconsider coronary intervention.
#Acute Exacerbation of Chronic HFmrEF
- Elevated proBNP >27,000, CXR findings suggestive of worsening pulm edema compared to prior admission, significant hyponatremia, weight gain
- Last echo (12/28) LVEF 40-45%, possible hypokinesis of the basal to mid inferior/inferolateral wall
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
- decrease Lasix back to 40mg once daily with downtrending sodium
- daily weights, enforce outpatient sodium/fluid restriction
- continue metoprolol, lisinopril and Farxiga
#MYLENE on CKD
- improving cr stable
#Hypervolemic Hyponatremia, secondary to acute exacerbation of HFmrEF
- resolved
#CO with cardiogenic shock on prior admission
#Elevated troponin
#CAD with triple vessel disease
- ECG showing ST depression in V3-V6
- downtrending troponin
- c/w aspirin, plavix
- holding statin 2/2 transaminitis, restart today
Physical Exam
Vital Signs/Labs
Vital Signs
Temp Pulse Resp BP Pulse Ox
97.8 F 96 19 112/79 98
01/15/25 07:54 01/15/25 10:00 01/15/25 10:00 01/15/25 10:00 01/14/25 23:44
01/14/25 01/15/25 01/16/25
06:59 06:59 06:59
Actual Weight 131 lb 9.855 oz 120 lb 13.013 oz
01/15/25 06:18
01/15/25 06:18
Magnesium 2.4 mg/dl (1.6-2.3) H 01/09/25 04:58
01/07/25
14:56
Qpw-G-Jyiwekzgmcm Pept > 57130
Physical Exam
Constitutional: No acute distress and Comfortable
Cardiovascular: Rhythm & rate is regular, Pedal edema is absent, S1S2 is normal and Murmur/rub/gallop absent
Respiratory: Respiratory effort normal
Data Reviewed
-
Date of Service: January 15, 2025
Medical Decision Making: Reviewed Test Results, Test Interpretation and Review of Case with other Provider
EKG: Tracing Personally Visualized and interpreted
Echo: Report Reviewed by me
Labs: Labs Reviewed by me
[2025-01-15 12:48] LABS: Glucose - Point of Care 178 mg/dl (70-99)
--- NOTE | 2025-01-15 12:50 | W.PN.NEPH.PH ---
Today's Communication / Plan
-
d/c plan
Assessment/Plan
-
Impression:
Hypoxic respiratory failure/proBNP 64949
Recent non-ST elevation [place], troponin falling
Three-vessel CAD by left heart cath, medical management
Hyponatremia, acute
MYLENE on CKD with baseline approximately 1.2
metabolic acidosis
Elevated LFTs
Plan:
stable renal function
hyponatremia -over all stable with diuretics
wt also stable, cont po lasix 40mg daily
cont SGLT2i, bp stable on low dose ACEI
too high risk for coronary intervention
reviewed with daughter at bedside in detail about cont FR 40ounces/day, low salt diet
need follow labs after d/c with PCP and cards
-
-
Date of Service: January 15, 2025
CC / HPI / ROS
-
Chief Complaint:
Hyponatremia
MYLENE
History of Present Illness:
MYLENE/Cr down to 1.3 stable
Na low at 132
diuresing well with po lasix for decompensated HF
non oliguric with condom catheter
BP stable
Review of Systems:
no fever
language barrier, no reported sob or pain
non /v
Labs
-
Labs:
WBC 6.3 10^3/uL (4.8-10.8) 01/15/25 06:18
RBC 2.98 10^6/uL (4.70-6.10) L 01/15/25 06:18
Hgb 9.4 g/dL (13.0-18.0) L 01/15/25 06:18
Hct 30.0 % (39.0-52.0) L 01/15/25 06:18
Plt Count 256 10^3/uL (130-400) 01/15/25 06:18
Sodium 132 mmol/L (135-145) L 01/15/25 06:18
Potassium 4.5 mmol/L (3.5-5.1) 01/15/25 06:18
Chloride 100 mmol/L (98-107) 01/15/25 06:18
Carbon Dioxide 30 mmol/L (22-30) 01/15/25 06:18
BUN 33 mg/dl (9-20) H 01/15/25 06:18
Creatinine 1.3 mg/dL (0.7-1.3) 01/15/25 06:18
eGFR 54.51 01/15/25 06:18
Glucose 118 mg/dl (70-99) H 01/15/25 06:18
Calcium 7.9 mg/dl (8.4-10.2) L 01/15/25 06:18
Phosphorus 4.1 mg/dl (2.5-4.5) 01/09/25 04:58
Dcw-N-Rzbonziojni Pept > 48886 pg/ml 01/07/25 14:56
Albumin 3.0 g/dl (3.5-5.0) L 01/14/25 03:46
Physical Exam
-
Vital Signs:
Vital Signs
Temp Pulse Resp BP Pulse Ox
97.8 F 96 19 112/79 98
01/15/25 07:54 01/15/25 10:00 01/15/25 10:00 01/15/25 10:00 01/14/25 23:44
Cardiovascular:: Regular rate and rhythm
Respiratory:: Bilateral: CTA
Lung Excursion:: Normal
Abdomen:: Nontender and Soft
Bowel Sounds:: Normal
Extremity Edema:: None: Bilateral:
Baker Catheter: No
[2025-01-15] MEDS: NOVOLOG FLEXPEN-LOW RESISTANCE 300 UNITS SC (14:08)
--- NOTE | 2025-01-15 16:00 | PTCARENOTE ---
Patient did well without mitt restraints. Patient calm and not pulling at tubes. OOB to chair for several hours today. Patient heavy assist x 2. Patient very weak. VS stable,afebrile. SR on monitor.
--- NOTE | 2025-01-15 16:18 | CM ---
F/U: TAMERA Will learned that patient might be ready tomorrow. TAMERA Will spoke to [facility] who returned today from vacation and found out that JAYLENE did not share that [facility] is not in network with [facility]. Now, TAMERA Will has to find
a new facility. Reviewed the list of SNF, most decline due to no bed so calling a [facility] to see if there is a bed. [facility] not [facility] a bed and checking on [facility]. PLAN: SNF when ready.
[2025-01-15 17:11] LABS: Glucose - Point of Care 125 mg/dl (70-99)
[2025-01-15] MEDS: LASIX PO (17:16)
[2025-01-15] MEDS: LIPITOR 40 MG PO (17:51)
[2025-01-15] MEDS: LOVENOX 30 MG SC (17:51)
[2025-01-15] MEDS: HYTRIN 1 MG PO (20:37)
[2025-01-15 22:42] LABS: Glucose - Point of Care 170 mg/dl (70-99)
[2025-01-16] VITALS (13 sets, daily range): BP systolic 90–111; BP diastolic 55–74; BMI 22.0
--- NOTE | 2025-01-16 06:17 | PTCARENOTE ---
assumed care of patient. pt is oriented to self, Cantonese speaking, but dementia at baseline. VSS. able to take pills with applesauce without issues. q2t. inc. of stool and bladder. condom cath intact. bed alarm on. care ongoing.
[2025-01-16 08:22] LABS: Glucose - Point of Care 107 mg/dl (70-99)
[2025-01-16] MEDS: NOVOLOG FLEXPEN-LOW RESISTANCE SC (09:02)
[2025-01-16] MEDS: PLAVIX 75 MG PO (09:03)
[2025-01-16] MEDS: LASIX PO (09:03)
[2025-01-16] MEDS: LOPRESSOR 12.5 MG PO ×2 (09:04→20:55)
[2025-01-16] MEDS: ASPIR LOW (ENTERIC COATED) 81 MG PO (09:04)
[2025-01-16] MEDS: PROTONIX 40 MG PO (09:04)
[2025-01-16] MEDS: ZESTRIL 2.5 MG PO (09:04)
[2025-01-16] MEDS: FARXIGA 10 MG PO (09:05)
[2025-01-16] MEDS: NAMENDA 10 MG PO (09:05)
--- NOTE | 2025-01-16 09:49 | W.PN.HOSP.TC ---
Today's Communication/Plan
-
dc if bed available
Assessment / Plan
Assessment / Plan
Encounter using language line with few languages, he did not respond, was unsuccessful
Physical Exam
General: eating without distress, No acute respiratory distress, chronically ill looking
HEENT: Normocephalic, Atraumatic, EOMI, MMM
Respiratory: Bibasilar crackles
Cardiac: Normal S1/S2, Regular Rate and Rhythm
GI: Soft, Nontender, Nondistended, Normal Bowel Sounds
Extremities: No Clubbing, Cyanosis
Neuro: Pleasantly confused, he ate his meal, not lethargic,
Psych: calm
Assessment/plan:
#Subacute hypoxic respiratory failure, onset 12/28/24
#Acute heart failure with severely reduced ejection fraction
#Acute kidney injury on stage III CKD due to cardiorenal syndrome
Appreciate nephrology input, status post IV Lasix, now on Lasix 40 mg p.o. daily
Cardiology added metoprolol tartrate 12.5 mg twice a day & lisinopril 2.5 mg daily, nephrology added Farxiga
Hypoxia resolved, now on room air. He was requiring 3 L previously
Echo 01/14 showed LVEF 25-30 % with global hypokinesis.
#Acute on chronic hypervolemic hyponatremia
Appreciate nephrology input, suspect hypervolemic
Sodium now normal, was 119 upon admission
Continue fluid restriction, po Lasix as BP tolerates
#Recent NSTEMI
#Recent multivessel CAD
no chest pain
no hypoxia
Troponin was downtrending, continue aspirin, Plavix. Cardiology added metoprolol to tartrate 12.5 mg twice a day & lisinopril 2.5 mg daily
Interventional cardiology discussed high risk PCI versus GDMT w/ pt's dtrs
Plan for GDMT with beta-radha, Farxiga, TANISHA as Bp tolerates.
#Dysphagia
Tolerating soft/bite-size diet with mildly thickened nectar liquids
#Transaminitis
Due to hepatic congestion
#Glucose intolerance
Hemoglobin A1c 5.9
#Dementia
#Mostly nonverbal status
Unable to use interpretation line.
Continue Namenda
Cleared by speech for soft/bite sized diet with thin liquids
#Gastroesophageal reflux disease
PPI
DVT prophylaxis� SC Lovenox
Total time spent to see the patient on the floor, examine the patient, review data and lab results, discuss treatment plan with patient, nursing staff around 55 minutes.
Anticipated Discharge: Today
Subjective/Interval History
-
Date of Service: January 16, 2025
No fevers
Tolerating his medications
ate full breakfast
Objective Data
-
Labs:
Laboratory Results
01/16/25
09:24
Sodium Pending
Potassium Pending
Chloride Pending
Carbon Dioxide Pending
BUN Pending
Creatinine Pending
Glucose Pending
Calcium Pending
Vital Signs:
Vital Signs
Temp Pulse Resp BP Pulse Ox
97.5 F 94 13 98/69 98
01/16/25 07:25 01/16/25 09:04 01/16/25 08:00 01/16/25 09:04 01/16/25 09:48
I&O
01/15/25 01/16/25 01/17/25
06:59 06:59 06:59
Intake Total 765 / 765 1005 / 1005
Output Total 940 / 940 1350 / 1350
Balance -175 / -175 -345 / -345
[2025-01-16 11:43] LABS: Glucose - Point of Care 178 mg/dl (70-99)
[2025-01-16] MEDS: NOVOLOG FLEXPEN-LOW RESISTANCE 1 UNITS SC ×2 (11:58→17:15)
[2025-01-16 12:27] LABS: Blood Urea Nitrogen 33 mg/dl (9-20); Calcium 8.0 mg/dl (8.4-10.2); Carbon Dioxide 29 mmol/L (22-30); Chloride 100 mmol/L (98-107); Estimated Creatinine Clearance 33 ml/min; Glucose 172 mg/dl (70-99); Sodium 131 mmol/L (135-145); eGFR 54.51
--- NOTE | 2025-01-16 12:30 | W.PN.NEPH.PH ---
Today's Communication / Plan
-
cont lasix and follow labs
d/c plan
Assessment/Plan
-
Impression:
Hypoxic respiratory failure/proBNP 04709
Recent non-ST elevation WA, troponin falling
Three-vessel CAD by left heart cath, medical management
Hyponatremia, acute
MYLENE on CKD with baseline approximately 1.2
metabolic acidosis
Elevated LFTs
Plan:
stable renal function
hyponatremia -slightly down to 131, monitor with diuretics
wt also stable, cont po lasix 40mg daily
cont SGLT2i,
bp low end on low dose ACEI
too high risk for coronary intervention
on 01/15 reviewed with daughter at bedside in detail about cont FR 40ounces/day, low salt diet
need follow labs after d/c with PCP and cards
-
-
Date of Service: January 16, 2025
CC / HPI / ROS
-
Chief Complaint:
Hyponatremia
MYLENE
History of Present Illness:
MYLENE/Cr 1.3 stable
Na low at 131
diuresing well with po lasix for decompensated HF
non oliguric with condom catheter
BP stable
Review of Systems:
no fever
language barrier, no reported sob or pain
Labs
-
Labs:
WBC 6.3 10^3/uL (4.8-10.8) 01/15/25 06:18
RBC 2.98 10^6/uL (4.70-6.10) L 01/15/25 06:18
Hgb 9.4 g/dL (13.0-18.0) L 01/15/25 06:18
Hct 30.0 % (39.0-52.0) L 01/15/25 06:18
Plt Count 256 10^3/uL (130-400) 01/15/25 06:18
Sodium 131 mmol/L (135-145) L 01/16/25 11:32
Chloride 100 mmol/L (98-107) 01/16/25 11:32
Carbon Dioxide 29 mmol/L (22-30) 01/16/25 11:32
BUN 33 mg/dl (9-20) H 01/16/25 11:32
Creatinine 1.3 mg/dL (0.7-1.3) 01/16/25 11:32
eGFR 54.51 01/16/25 11:32
Glucose 172 mg/dl (70-99) H 01/16/25 11:32
Calcium 8.0 mg/dl (8.4-10.2) L 01/16/25 11:32
Phosphorus 4.1 mg/dl (2.5-4.5) 01/09/25 04:58
Qjk-A-Jpwrfhgivxq Pept > 69262 pg/ml 01/07/25 14:56
Albumin 3.0 g/dl (3.5-5.0) L 01/14/25 03:46
Physical Exam
-
Vital Signs:
Vital Signs
Temp Pulse Resp BP Pulse Ox
97.4 F 77 17 101/64 98
01/16/25 11:50 01/16/25 12:00 01/16/25 10:00 01/16/25 12:00 01/16/25 09:48
Cardiovascular:: Regular rate and rhythm
Respiratory:: Bilateral: CTA
Lung Excursion:: Normal
Abdomen:: Nontender and Soft
Extremity Edema:: None: Bilateral:
Baker Catheter: No
[2025-01-16 12:32] LABS: Potassium 4.5 mmol/L (3.5-5.1)
--- NOTE | 2025-01-16 15:30 | CM ---
F/U: TAMERA Will had to find another bed at another facility, found [facility] who will take the insurance. TAMERA Will informed the daughter: Dustin that has been visiting most days of this transfer. Called [facility] re: them not receiving the
faxed clinical and had to call 2x then told that the fax was received and finally obtain authorization:
Auth: #[id number]
Days: 01/16 to 02/15
Level: SNF
F: [phone]
Other daughter Yael arrived and was unaware, wanted to speak the Hospitalist, but seemed fine with the transfer. Hospitalist called the daughter Yael and TAMERA Will spoke to daughter Dustin who wants to speak to [facility] Liaison re: ensuring
her father gets his medications because Dustin had a bad experience prior with her father not getting his needed medications. Lavinia, the liaison will call Dustin. Lavinia said that transfer has to be on 01/17 at 10am so this transport was arranged for
then- daughters are aware.
Report: #[phone]
Fax: #[phone]
PLAN: SNF tomorrow
[2025-01-16] MEDS: LIPITOR 40 MG PO (17:16)
[2025-01-16] MEDS: LOVENOX 30 MG SC (17:16)
[2025-01-16 17:30] LABS: Glucose - Point of Care 167 mg/dl (70-99)
[2025-01-16] MEDS: HYTRIN 1 MG PO (20:55)
[2025-01-16 21:36] LABS: Glucose - Point of Care 177 mg/dl (70-99)
[2025-01-17] VITALS: BP 101/69
[2025-01-17 02:00] VITALS: BP 105/73
[2025-01-17 04:00] VITALS: BP 110/67
[2025-01-17 04:39] LABS: Blood Urea Nitrogen 32 mg/dl (9-20); Calcium 7.8 mg/dl (8.4-10.2); Carbon Dioxide 26 mmol/L (22-30); Chloride 102 mmol/L (98-107); Estimated Creatinine Clearance 36 ml/min; Glucose 99 mg/dl (70-99); Potassium 4.6 mmol/L (3.5-5.1); Sodium 131 mmol/L (135-145); eGFR > 60.00
--- NOTE | 2025-01-17 05:54 | PTCARENOTE ---
Pt continues with incontinence of bowel and bladder, CC#[address] and working well. Pt nods appropriately, follows some commands, however does not offer verbal response. Q2T schedule in place to prevent skin breakdown. Care ongoing.
[2025-01-17 06:00] VITALS: BP 106/64; BMI 21.7
[2025-01-17 07:47] LABS: Glucose - Point of Care 107 mg/dl (70-99)
[2025-01-17 08:00] VITALS: BP 106/68
[2025-01-17] MEDS: NOVOLOG FLEXPEN-LOW RESISTANCE SC (09:11)
[2025-01-17] MEDS: FARXIGA 10 MG PO (09:12)
[2025-01-17] MEDS: PROTONIX 40 MG PO (09:12)
[2025-01-17] MEDS: ZESTRIL 2.5 MG PO (09:12)
[2025-01-17] MEDS: ASPIR LOW (ENTERIC COATED) 81 MG PO (09:12)
[2025-01-17] MEDS: LOPRESSOR 12.5 MG PO (09:12)
[2025-01-17] MEDS: LASIX 40 MG PO (09:13)
[2025-01-17] MEDS: PLAVIX 75 MG PO (09:13)
[2025-01-17] MEDS: NAMENDA 10 MG PO (09:13)
--- NOTE | 2025-01-17 09:19 | PTCARENOTE ---
Patient d/c today. Transport to [facility] at 10AM. Daughter in room at bedside.
--- NOTE | 2025-01-17 10:10 | W.PN.HOSP.TC ---
Today's Communication/Plan
-
dc
Assessment / Plan
Assessment / Plan
Encounter using language line with few languages, he did not respond, was unsuccessful
All my encounters even when daughter talking to him, I never heard him talk back to her.
Physical Exam
General: eating without distress, No acute respiratory distress, chronically ill looking
HEENT: Normocephalic, Atraumatic, EOMI, MMM
Respiratory: No Bibasilar crackles, clear with no wheezes
Cardiac: Normal S1/S2, Regular Rate and Rhythm
GI: Soft, Nontender, Nondistended, Normal Bowel Sounds
Extremities: No Clubbing, Cyanosis
Neuro: Pleasantly confused, he ate his meal, not lethargic,
Psych: calm
Assessment/plan:
#Subacute hypoxic respiratory failure, onset 12/28/24
#Acute heart failure with severely reduced ejection fraction
#Acute kidney injury on stage III CKD due to cardiorenal syndrome
Appreciate nephrology input, status post IV Lasix, now on Lasix 40 mg p.o. daily
Cardiology added metoprolol tartrate 12.5 mg twice a day & lisinopril 2.5 mg daily, nephrology added Farxiga
Hypoxia resolved, now on room air. He was requiring 3 L previously
Echo 01/14 showed LVEF 25-30 % with global hypokinesis.
#Acute on chronic hypervolemic hyponatremia
Appreciate nephrology input, suspect hypervolemic
Sodium now normal, was 119 upon admission
Continue fluid restriction, po Lasix as BP tolerates
#Recent NSTEMI
#Recent multivessel CAD
no chest pain
no hypoxia
Troponin was downtrending, continue aspirin, Plavix. Cardiology added metoprolol to tartrate 12.5 mg twice a day & lisinopril 2.5 mg daily
Interventional cardiology discussed high risk PCI versus GDMT w/ pt's dtrs
Limitations to introduce all GDMT for heart failure due to hypotension/renal dysfunction, now with beta-radha, Farxiga, TANISHA as Bp tolerates.
#Dysphagia
Tolerating soft/bite-size diet with mildly thickened nectar liquids
#Transaminitis, resolved.
Due to hepatic congestion
No abd pain or distension or tenderness.
#Glucose intolerance
Hemoglobin A1c 5.9
c/w diet
#Dementia
#Mostly nonverbal status, he seems to follow simple commands. No agitation, calm most of the time.
Unable to use interpretation line as noted.
Continue Namenda
Cleared by speech for soft/bite sized diet with thin liquids
#Gastroesophageal reflux disease
PPI
DVT prophylaxis� SC Lovenox
# DC planning
Discharge plan discussed with both daughters. They had a lot of questions and answers and concerns. All answered to their satisfaction. They were appreciative and expressed their satisfaction. Patient has complex medical problems and advanced
cardiovascular disease. He unfortunately remains high risk for readmissions.
Total discharge time spent to see the patient on the floor, examine the patient, review data and lab results, discuss discharge plan with patient, sec reporting consultant, nursing staff around 65 minutes.
Anticipated Discharge: Today
Subjective/Interval History
-
Date of Service: January 17, 2025
No events over night
Daughter at bed side with questions
Objective Data
-
Labs:
Laboratory Results
01/17/25
03:57
Sodium 131 L
Potassium 4.6
Chloride 102
Carbon Dioxide 26
BUN 32 H
Creatinine 1.2
Glucose 99
Calcium 7.8 L
Vital Signs:
Vital Signs
Temp Pulse Resp BP Pulse Ox
97.6 F 63 15 106/68 98
01/17/25 08:00 01/17/25 08:00 01/17/25 06:00 01/17/25 08:00 01/17/25 09:00
I&O
1001/17/25 01/18/25
06:59 06:59 06:59
Intake Total 1005 / 1005
Output Total 1350 / 1350 800 / 800 300 / 300
Balance -345 / -345 -800 / -800 -300 / -300
[2025-01-17 10:25] VITALS: BP 109/65
--- NOTE | 2025-01-17 11:13 | CM ---
F/U: Patient is still ready to discharge and [facility] is aware. PLAN: DC to [facility].
--- NOTE | 2025-01-18 13:47 | W.DCSUMMARY ---
Discharge Summary
Discharge Data
Date of Admission: 01/07/25
Date of Discharge: 01/17/25
-
Pending Results: No
Hospital Course
84 years old male was brought in by the ambulance due to shortness of breath. Patient was discharged on January 03 after several days hospitalization for ischemic cardiomyopathy/myocardial infarction. Patient has dementia and mostly nonverbal.
History provided by his daughter who is the caregiver. She reported that she felt he was short of breath and was having peripheral edema. Patient was found to have hyponatremia at 118 with positive troponin. He was felt to be in acute on chronic
heart failure with reduced ejection fraction. Patient was evaluated by nephrology. Nephrology recommended to start diuretic therapy. Patient was evaluated by insurance sales executive. He was started on low doses of goal-directed medical therapy for heart
failure with limitation regard of low blood pressure and renal insufficiency. Medications were introduced slowly. His volume status and weight were monitored closely. He had a frequent blood work to check his electrolytes or renal function. He
had repeat echocardiogram that showed left ventricular systolic function of 25 to 30% with global hypokinesia, mild to moderate mitral regurgitation, moderate tricuspid regurgitation. Sonography Technician recommended to continue with diuretic therapy.
Patient had borderline hypotension but was able to tolerate low doses of his cardiac medications at most times. Family wanted patient to stay longer in the hospital to avoid readmission. Patient was evaluated by physical therapy and case monitor.
Family wanted snf placement to pursue rehab. Patient remained hemodynamic stable was discharged in a stable condition. Patient remains high risk for readmission due to his complex medical history, advanced cardiomyopathy but he was
discharged with a follow-up appointment sooner with cardiology.
Discharge Plan
-
Patient Disposition: Shelter/SNF
Discharge Diagnosis/Procedures: Acute on chronic heart failure with reduced ejection fraction/ischemic cardiomyopathy
You are followed by aircraft electrician and insurance sales executive. We adjusted the blood pressure and cardiac medications as your blood pressure and kidney function tolerated. You will need to follow-up with insurance sales executive as instructed
Diet: As tolerated
Blood Work: [facility] on 01/20 and fax result to insurance sales executive
Instructions: *CBC Heart Failure Instructions
Referrals:
Carlos Duke MD [Active, Cardiology] - 01/24/25 12:00 pm
India Lee MD [Family Provider, [facility]]
Prescriptions:
New
furosemide 40 mg Tablet
40 mg PO DAILY Qty: 30 0RF
lisinopril 2.5 mg Tablet
2.5 mg PO DAILY Qty: 30 0RF
Rx Instructions:
Hold if systolic blood pressure less than 100
metoprolol tartrate 25 mg Tablet
12.5 mg PO BID Qty: 60 0RF
dapagliflozin propanediol 10 mg Tablet
10 mg PO DAILY Qty: 30 0RF
Continued
metformin 500 mg tablet
500 mg PO DAILY
terazosin 1 mg capsule
1 mg PO HS
aspirin 81 mg tablet,delayed release (DR/EC)
81 mg PO DAILY
pantoprazole 40 mg tablet,delayed release (DR/EC)
40 mg PO DAILY
memantine 10 mg tablet
10 mg PO DAILY
clopidogrel 75 mg Tablet
75 mg PO DAILY MDD BLOOD THINNER Qty: 30 0RF
atorvastatin [Lipitor] 40 mg tablet
40 mg PO DAILY
Discontinued
furosemide [Lasix] 20 mg tablet
20 mg PO Q OTHER DAY
metoprolol succinate [Toprol XL] 25 mg tablet extended release 24 hr
12.5 mg PO BID
Discharge Orders:
Discharge Patient (As Directed); Ordered 01/17/25
Ordered By: Sean Avery
Discharge Date and Time
Discharge Date/Time: 01/17/25 10:56
Print Language: Mandarin Hebrew
== END 2025-01-17 10:56 | DRG 280 ==
LOC: IMU 17:58
PROVIDERS: Clinical Nurse Specialist Family Health; Family Medicine; Internal Medicine; ADMITTING PHYSICIAN Hospitalist; ATTENDING PHYSICIAN Internal Medicine; CONSULT PHYSICIAN Specialist; EMERGENCY PHYSICIAN Emergency Medicine; FAMILY PHYSICIAN Family Medicine; OTHER PHYSICIAN Student in an Organized Health Care Education/Training Program
DX: I13.0 Hypertensive heart and chronic kidney disease with heart failure and stage 1 through stage 4 chronic kidney disease, or unspecified chronic kidney disease (principal); I50.23 Acute on chronic systolic (congestive) heart failure; I21.4 Non-ST elevation (NSTEMI) myocardial infarction; J96.91 Respiratory failure, unspecified with hypoxia; E87.1 Hypo-osmolality and hyponatremia; N17.9 Acute kidney failure, unspecified; E87.20 Acidosis, unspecified; I25.10 Atherosclerotic heart disease of native coronary artery without angina pectoris; Z87.891 Personal history of nicotine dependence; K21.9 Gastro-esophageal reflux disease without esophagitis; I25.5 Ischemic cardiomyopathy; N18.31 Chronic kidney disease, stage 3a; E11.22 Type 2 diabetes mellitus with diabetic chronic kidney disease; Z79.02 Long term (current) use of antithrombotics/antiplatelets; Z79.82 Long term (current) use of aspirin; Z79.899 Other long term (current) drug therapy; Z86.73 Personal history of transient ischemic attack (TIA), and cerebral infarction without residual deficits
CPT/HCPCS: 71045; 76705; 80048; 80053; 81003; 81015; 82570; 82607; 82728; 82746; 82962; 83540; 83550; 83605; 83615; 83735; 83880; 84100; 84300; 84484; 85025; 85027; 93005; 93308; 93971; 97110; 97163; 97167; 97530; 99291; Q9950

== ENCOUNTER 2025-03-18 12:48 | Observation (INO) | payer OTHER, SELFPAY ==
[2025-03-18] VITALS (22 sets, daily range): BP systolic 73–114; BP diastolic 53–81; BMI 19.7
--- NOTE | 2025-03-18 09:34 | ED.GENMED ---
History of Present Illness
General
Chief Complaint: Heart Rate Problem
Time Seen by Provider: 03/18/25 09:34
History of Present Illness
History of Present Illness:
FOCUSED PAST MEDICAL HISTORY
- Advanced dementia, A-fib
REVIEW OF OLD RECORDS
- Patient was admitted with acute exacerbation of heart failure January 2025
Note:
CHIEF COMPLAINT(S)
Unresponsiveness and high heart rate.
HISTORY OF PRESENT ILLNESS
The patient is an 85-year-old male with a history of dementia, presenting with episodes of unresponsiveness. This morning, the patients heart rate was monitored using a watch, which showed a rate of up to 147 beats per minute. The family was
informed that the heart rate could possibly have been over 200, though this was not recorded by the watch. The patient appeared to be unresponsive for about 10 minutes, with a longer period of approximately 30 minutes where he was not responding
meaningfully. The patient took his morning dose of Metoprolol during breakfast. He has no known history of atrial fibrillation, though his heart rate was noted to be irregular this morning according to the watch, indicative of possible atrial
fibrillation. The patient does not complain of any chest pain. His blood pressure upon arrival was recorded as low, ranging from 80s over 60s to 90s. There is no prior history of being on anticoagulant therapy for atrial fibrillation.
PAST MEDICAL AND SURIGICAL HISTORY
The patient has a documented history of heart failure with a reduced ejection fraction (EF) of 25%, diagnosed following an event in December. There is no known history of atrial fibrillation or treatment with anticoagulants for such.
ADDITIONAL HISTORY OBTAINED FROM SOURCES OTHER THAN THE PATIENT
The information was provided by the patient�s family, noting that the patient was found to be unresponsive and did not exhibit any complaints of chest pain. Family confirms regular monitoring of heart rate via a watch.
PHYSICAL EXAM
-General: Appears in no distress, provide no spontaneous speech, awake but with limited eye contact, hypotension with manual blood pressures of 80s over 60s
-HEENT: Moist oral mucosa
-Cardiovascular: Irregular rhythm but borderline tachycardic at times with rates just over 100 for the most part
-Pulmonary: No respiratory distress, breathing is nonlabored, equal and clear breath sounds
-Abdomen: Soft and nontender with no peritoneal signs
-Neurologic: The patient has evidence of dementia, not oriented to month or place, strength is equal in all extremities
-Extremities: Moves all extremities equally, no tenderness, no edema
-Psychiatric: Very limited historian, poor insight and judgment
PROBLEM LIST
Acute:
1. Unresponsive episode
2. New onset atrial fibrillation
3. Low blood pressure acute on chronic
Chronic:
1. Dementia
2. Heart failure with reduced ejection fraction (25%)
PLAN
The patient will be administered intravenous fluids to address low blood pressure. Further blood work is awaited to assess underlying causes. Continuous monitoring of heart rate and rhythm will be conducted given the concern for possible atrial
fibrillation. Given the patient�s low blood pressure and history of heart failure, admission to the hospital may be necessary for closer monitoring and management. Patient to continue seeing his telephone plant power operator for heart failure management. Follow-up
after test results are obtained.
DIFFERENTIAL DIAGNOSIS
The Differential Diagnosis includes, in no particular order and is not limited to:
1. Atrial Fibrillation
2. Syncope
3. Bradycardia
4. Hypotension
5. Medication side effects
6. Heart Failure Exacerbation
7. Electrolyte Imbalance
8. Transient Ischemic Attack
9. Dehydration
10. Infection
RADIOLOGY
- Chest x-ray clear
EKG
- A-fib 97, nonspecific ST abnormality, A-fib is new in comparison to 01/07/2025
LABS
- White count normal, hemoglobin 12.1
SUMMARY OF ENCOUNTER
The patient, an 85-year-old male with a history of dementia and heart failure with reduced ejection fraction, was seen in the emergency department for episodes of unresponsiveness and a very high heart rate noted earlier at home. His heart rate was
noted to be irregular and possibly indicative of atrial fibrillation, a new finding for the patient. Upon arrival, the patient had low blood pressure, which persisted despite the administration of intravenous fluids. A chest x-ray was performed and
showed no significant fluid buildup. Blood work was still awaited to further evaluate the underlying causes. Given his history and continued low blood pressure, the plan was to admit him to the hospital for further evaluation and management.
DISPOSITION
Admit
EMERGENCY TREATMENTS ADMINISTERED
The patient was administered intravenous fluids in an attempt to address low blood pressure.
MANAGEMENT OF THE PATIENTS CARE WAS DISCUSSED WITH
Case was discussed with the cardiology individual pension adviser, Dr. Valdes, and Dr. Whitten group was notified for further evaluation and management.
PLAN
The plan includes admitting the patient to the hospital for more detailed evaluation. The patient is to be started on blood thinners to prevent stroke due to potential atrial fibrillation.
PATIENT EDUCATION AND COUNSELING
The patients family was informed about the plan to admit him to the hospital for further evaluation and treatment. They were educated on the initiation of a blood thinner to reduce the risk of stroke due to the suspected atrial fibrillation.
MEDICATION RECONCILIATION
A new blood thinner is to be initiated for stroke prevention given the concern for atrial fibrillation.
MEDICAL DECISION MAKING
- Number and Complexity of Problems Addressed: Chronic conditions affecting care include dementia, heart failure with reduced ejection fraction, and suspected new onset of atrial fibrillation. Differential diagnosis includes atrial fibrillation,
syncope, bradycardia, hypotension, medication side effects, heart failure exacerbation, electrolyte imbalance, transient ischemic attack, dehydration, and infection.
- Data:
Category 1
- Clinical information was obtained from an independent historian (the patients family).
Category 2
- My independent interpretation of the chest x-ray revealed no significant fluid buildup.
Category 3
- Discussion of management with cardiology individual pension adviser (Dr. Valdes) was carried out regarding further evaluation of the patients condition.
-Risk: The patients risk factors include the new potential diagnosis of atrial fibrillation, low blood pressure, and heart failure history. Admission was deemed necessary for further evaluation and management due to these complexities.
DIAGNOSIS
- Atrial fibrillation, unspecified [I48.91]
- Heart failure with reduced ejection fraction [I50.22]
- Unspecified dementia without behavioral disturbance [F03.90]
- Low blood pressure, unspecified [I95.9]
UPDATE
- I reviewed old records, the patient was also described as 'mostly nonverbal' from the admission in January.
- At that time his sodium was 118 troponin was elevated he also was found to have acute on chronic heart failure with EF of 25% cardiology recommended continue diuresis
- Came in today due to periods of unresponsiveness and Apple Watch showed heart rate as high as 148 and found to be in new onset
- Borderline hypotension was also noted last admission
- A-fib appears to be a new diagnosis as of today
- Heart rates primarily in the low 100 range and BPs have been in the 80s to 90s systolic
- Cannot safely cardiovert at this time as he cannot provide meaningful history and no clear time of onset of A-fib
- However will cardiovert if he becomes more unstable but the hypotension has been described on recent admission as well
- Discussed with Dr. Márquez plans to continue metoprolol as tolerated and likely will start Eliquis
Past History
Past History
ED Past Medical History: HTN, NIDDM and Other (Dementia, renal insufficiency)
Phy Exam
Physical Exam
Physical Exam:
See HPI
Course
Orders/Labs/Results
Orders:
Orders
03/18/25
Electrocardiogram (*1) Stat
Reason for Study: Chest Pain
Comment: DONE
03/18/25 09:30
EKG- Treatment ONCE
03/18/25 09:39
0.9% Sodium Chloride 500 ml [Nss] 500 ml IV BOLUS
03/18/25 09:48
Complete Blood Count/With Diff Urgent
Comprehensive Metabolic Panel Urgent
Magnesium Urgent
NT-proBNP Urgent
Comment: ADD
TSH Reflex To Free T4 Urgent
03/18/25 10:07
Add On- LAB Urgent
Tests Added?: bnp
03/18/25 10:08
CR Chest Portable - 1 View Urgent
Comment:
Reason For Exam: hypotension; h/o HF
Reason Study Needs to be Portable: Patient Unstable
03/18/25 10:10
Lactic Acid Q4H
Comment: CANCEL 2nd LACTIC ACID IF 1st LACTIC ACID IS LESS THAN 2
Blood Culture Q30M
VANDA Source: Blood/Venous
Specimen Description:
Blood Culture Q30M
VANDA Source: Blood/Venous
Specimen Description:
03/18/25 10:11
Troponin I Urgent
03/18/25 11:57
Electrocardiogram (*1) Urgent
Reason for Study: Atrial Fibrillation
EKG- Treatment ONCE
03/18/25 12:29
Admit/Transfer Patient As Directed
Co-Sign Provider:
Level of Care: Observation services
Assign to:: IMU- Intermediate Care
Physician / Group: Venu
Diagnosis: New A-fib, Hypotension
Reason for Hospitalization: Blood pressure managment
Expected length of stay greater than two midnights?: Yes
ELOS- Estimated Length of Stay in days: 3
I certify the patient meets the requirements for IP care: Yes
0.9% Sodium Chloride 500 ml [Nss] 500 ml IV BOLUS
PRN Pain Medication Management As Directed
May give lesser potent ordered pain med per pt: Yes
preference::
Protocol:: Medication orders for pain may be administered in a
manner that supports deferring to patient preference
when the pt is:
- Requesting an ordered lesser potent pain medication.
Least to most potent pain medications are defined
as: acetaminophen < NSAID < tramadol < opioids
(morphine, oxycodone, hydromorphone).
- Requesting a lesser dose of the same medication IF
ORDERED.
- Requesting a less intrusive route of administration
if both routes are prescribed by the provider (PO <
IV).
03/18/25 12:31
Code Status As Directed
Resuscitation Status: Full Code
03/18/25 14:15
Lactic Acid Q4H
Comment: CANCEL 2nd LACTIC ACID IF 1st LACTIC ACID IS LESS THAN 2
03/18/25 15:00
Troponin I Q6H
03/18/25 21:00
Troponin I Q6H
Abnormal Lab Results
03/18/25 03/18/25
09:48 10:11
RBC 3.96 L 10^6/uL
(4.70-6.10)
Hgb 12.1 L g/dL
(13.0-18.0)
Hct 35.3 L %
(39.0-52.0)
Absolute Neuts (auto) 6.6 H 10^3/uL
(1.4-6.5)
Neutrophils % 77.5 H %
(42.2-75.2)
Lymphocytes % 14.5 L %
(20.5-51.1)
Sodium 130 L mmol/L
(135-145)
Chloride 96 L mmol/L
(98-107)
BUN 36 H mg/dl
(9-20)
Glucose 113 H mg/dl
(70-99)
Troponin I 0.857 H* ng/ml
03/18/25 09:48
03/18/25 09:48
Vital Signs
Initial and Last Documented VS:
Initial Vital Signs
Pulse Resp
108 21
03/18/25 09:28 03/18/25 09:28
Last Documented Vital Signs
Temp Pulse Resp BP Pulse Ox
36.5 C 85 17 89/62 98
03/18/25 09:34 03/18/25 12:36 03/18/25 12:36 03/18/25 12:36 03/18/25 12:36
*Pulse Oximetry
Patient hypoxic: no
*Critical Care Note
Total Time (30-74mins, 75-104mins- exclusive of procedures): Not Applicable
ED Attending Note
-
Portions of this chart may have been created with voice recognition software.� Occasional wrong word or��sound alike� substitutions may have occurred due to the inherent limitations of voice recognition software.
Discharge Plan
Departure
Patient Disposition: Admit
Date of Disposition: 03/18/25
Time of Disposition: 11:26
Presentation/result/management discussed w/ accepting MD/DO: Hospitalist
Discharge Problem:
Atrial fibrillation, new onset
Interventions
Interventions:
*General Assessment Last Done: 03/18/25 09:28
*Neglect/Abuse Screening Last Done: 03/18/25 09:28
*ED COVID-19 Vaccine History Last Done: 03/18/25 09:35
*ED Influenza Vaccine History Last Done: 03/18/25 09:35
[facility] Fall Risk Assessment Tool Last Done: 03/18/25 09:47
*Risk Screen - Suicide (C-SSRS) Last Done: 03/18/25 09:28
ED- Cardiac Assessment Last Done: 03/18/25 09:35
ED- Pulmonary Assessment Last Done: 03/18/25 09:35
[2025-03-18] MEDS: NSS 500 IV ×3 (09:41→21:05)
[2025-03-18 10:08] LABS: Hematocrit 35.3 % (39.0-52.0); Hemoglobin 12.1 g/dL (13.0-18.0); Mean Corp Hgb Conc. 34.3 g/dL (33.0-37.0); Mean Corpuscular Volume 89.1 fL (80.0-94.0); Nucleated Red Blood Cells % 0 % (-); Platelet Count 202 10^3/uL (130-400); Red Cell Dist. Width 14.4 % (11.5-14.5)
[2025-03-18 10:23] LABS: ALT (SGPT) 29 U/L (0-50); AST (SGOT) 33 U/L (17-59); Albumin 3.5 g/dl (3.5-5.0); Alkaline Phosphatase 126 U/L (38-126); Blood Urea Nitrogen 36 mg/dl (9-20); Calcium 8.5 mg/dl (8.4-10.2); Carbon Dioxide 25 mmol/L (22-30); Chloride 96 mmol/L (98-107); Estimated Creatinine Clearance 32 ml/min; Glucose 113 mg/dl (70-99); Magnesium 2.3 mg/dl (1.6-2.3); Potassium 4.0 mmol/L (3.5-5.1); Sodium 130 mmol/L (135-145); Total Protein 6.3 g/dl (6.3-8.2); eGFR 59.63
[2025-03-18 10:58] LABS: Troponin I 0.857 ng/ml
--- NOTE | 2025-03-18 12:16 | HPS.HSE ---
Addendum entered and electronically signed by Lance Lea MD 03/18/25 15:00:
This is an addendum to the H&P written by Birgit Gonsalez on 03/18/2025. �Patient seen and examined independently with PA.
85-year-old male past medical history of HFrEF, multivessel CAD, dysphagia, diabetes, dementia, GERD, CKD 3, here for unresponsiveness. �Heart rate was up to 147 and irregular. �No chest pain.
Vital signs show blood pressure 89/62. �Heart rate up to 112 here.
Labs show troponin of 0.857. �Sodium of 130 stable. �Lactate 0.8.
Chest x-ray shows no acute cardiopulmonary process.
EKG shows normal sinus rhythm.
Patient with syncopal episode, new onset atrial fibrillation with RVR spontaneously converted with IV fluids. �Patient continues to be hypotensive. �Continue IV fluids. �Hold antihypertensive medications and diuretics. �Cardiology consulted.
Original Note:
Family Physician
-
Family Physician: India Lee MD
Chief Complaint
-
Elevated Heart Rate
History of Present Illness
Patient is an 85-year-old male past medical history of multivessel coronary artery disease, cardiomyopathy, chronic HFrEF, hypertension, hyperlipidemia, diabetes, chronic kidney disease and moderate dementia who presents with elevated heart rate and
unresponsive episode. Patient's heart rate was noted to be elevated this morning up to 147 bpm as noted by his Apple Watch. It is also reported that patient was not as responsive as usual. Upon arrival to the emergency department EKG revealed
atrial fibrillation at a controlled rate. Patient has no prior history of atrial fibrillation, and is not currently anticoagulated. While in the emergency department patient spontaneously converted back to normal sinus rhythm.
Medical History
Past Medical History
Past Medical History: Reports Other
Additional Past Medical History:
Multi-Vessel Coronary Artery Disease
Cardiomyopathy
Chronic HFrEF
Essential Hypertension
Hyperlipemia
Diabetes Mellitus, Type II
CVA
CKD Stage III
Chronic Hyponatremia
Moderate Dementia
Past Surgical History: Reports Other
Additional Past Surgical History:
Cataract Extraction
Social History
Tobacco: Former Smoker (Quit age 51s)
Alcohol: None
Drug: None
Personal:
Living: With Family
Employment: Retired
Family History
Family History: Not pertinent
Allergies / Home Medications
Allergies reflects when Allergies were last updated in [facility].
Home Medications with original date entered in [facility]
Allergy/Medication List:
Allergies
Allergy/AdvReac Type Severity Reaction Status Date / Time
No Known Allergies Allergy Verified 03/18/25 09:28
Home Medications
aspirin 81 mg tablet,delayed release 81 mg PO DAILY Blood Clot Prevention/Tx 12/28/24
memantine 10 mg tablet 10 mg PO HS Dementia 12/28/24
metformin 500 mg tablet 500 mg PO DAILY Diabetes 12/28/24
pantoprazole 40 mg tablet,delayed release 40 mg PO DAILY Gastrointestinal Issue 12/28/24
terazosin 1 mg capsule 1 mg PO HS Urinary Issue 12/28/24
clopidogrel 75 mg tablet 75 mg PO DAILY #30 tabs 01/02/25
atorvastatin 40 mg tablet (Lipitor) 40 mg PO QPM STATIN 01/07/25
dapagliflozin propanediol 10 mg tablet 10 mg PO DAILY #30 tabs 01/16/25
furosemide 40 mg tablet 40 mg PO DAILY #30 tabs 01/16/25
lisinopril 2.5 mg tablet 2.5 mg PO DAILY #30 tabs 01/16/25
latanoprost 0.005 % eye drops 1 drp BOTH EYES HS 03/18/25
metoprolol succinate 25 mg tablet,extended release 24 hr 25 mg PO DAILY 03/18/25
nitroglycerin 0.4 mg sublingual tablet (Nitrostat) 0.4 mg sublingual [id number] PRN chest pains 03/18/25
Review of Systems
-
Unable to obtain full review of systems at this time due to: Dementia
Physical Exam
Vital Signs
Vital Signs
Temp Pulse Resp BP Pulse Ox
97.7 F 106 14 92/64 98
03/18/25 09:34 03/18/25 11:33 03/18/25 11:33 03/18/25 11:33 03/18/25 11:33
Physical Exam
General: Well Developed, Well Nourished and No Apparent Distress
HEENT: NormoCephalic and Anicteric
Respiratory: Clear and Non Labored Respirations; No Crackles
Cardiac: S1/S2 and Regular Rhythm
GI: Soft and Non Tender
Rectal: Deferred by Provider
Musculoskeletal: No Clubbing, No Cyanosis and No Edema
Skin: Warm and Dry
Neuro: Awake, Alert (Opens eyes to verbal stimuli) and Other (Patient unable to participate in full neurologic evaluation due to dementia )
Psych: Calm
Laboratory Results
-
03/18/25 09:48
03/18/25 09:48
Laboratory Results
Lactic Acid 0.8 mmol/L (0.7-2.0) 03/18/25 10:10
Total Bilirubin 0.6 mg/dl (0.2-1.3) 03/18/25 09:48
AST 33 U/L (17-59) 03/18/25 09:48
ALT 29 U/L (0-50) 03/18/25 09:48
Alkaline Phosphatase 126 U/L (38-126) 03/18/25 09:48
Troponin I 0.857 ng/ml H* 03/18/25 10:11
Data Reviewed
-
Lab Data: Labs Reviewed by me
Old Records: Reviewed
Impression/Plan
-
Atrial Fibrillation - New Diagnosis
-Patient spontaneously converted back to normal sinus rhythm
-Consult Cardiology
-Monitor on Telemetry
-Continue metoprolol 12.5mg BID as recommended by Cardiology
-Start Eliquis
Elevated Troponin, suspect related to uncontrolled heart rate
-Continue to trend
Hypotension, possibly related to over-diuresis
-Patient received 500mL NSS in ED without much change in BP - Give additional 500mL now
-Hold Lasix and dapagliflozin
-Hold lisinopril and terazosin
-Consider pressors if BP does not improve (Baseline SBP ~100)
Multi-Vessel Coronary Artery Disease
-Stop Plavix with starting Eliquis
-Continue Aspirin
Cardiomyopathy / Chronic HFrEF
-Lasix and dapagliflozin as above
-Monitors Daily Weights
Diabetes Mellitus, Type II
-Hold metformin
-Monitor sugars and continue coverage insulin
CKD Stage III
-Creatinine at baseline
Chronic Hyponatremia
-Sodium at baseline
Moderate Dementia
-Continue Namenda
DVT proph: Eliquis
Code Status: Full Code
--- NOTE | 2025-03-18 12:46 | CON.CAR ---
Addendum entered and electronically signed by Ricco Márquez MD 03/18/25 14:23:
Patient seen and examined in collaboration with [employer] [employer]; agree with below.
- 85 year old male with CAD (medically managed), chronic HFrEF/ICM (EF 20-25%), HLD, and DM admitted with new onset PAF (asymptomatic).
- Spontaneously converted back to sinus rhythm in the ER.
- Examination: Heart regular rate and rhythm; lungs CTA bilaterally.
- Continue metoprolol tartrate 12.5 mg BID.
- Start Eliquis 2.5 mg BID.
- Will be admitted to observation status under Hospitalist; likely discharge to home tomorrow.
Original Note:
Translation Services
-
Comment: Patient speaks Cantonese, his daughter refused translation services.
Consultation
Consultation Request
Date/Time Consultation Requested: 03/18/25 11:30p
Date/Time Consultation Performed: 03/18/25 12p
Requesting Provider: Dr. Blanton
Performing Provider: DUANE Cruz for Dr. Márquez
Reason for Consultation: new onset Afib
Medical History
-
Chief Complaint: irregular heart beats
History of Present Illness:
Mr. Iglesias is an 85 yo male with CAD with NSTEMI 12/31/24 (severe triple vessel disease, family opted for medical management rather than pursue high risk PCI), ICM 20-25%, HFrEF,
new onset Afib on Apple Watch 6am rates increased to 90s-100s, no symptoms. daughter and son lives with, care for him. no walking just standing to change diaper, they feed him.
afib converted to NSR, she gives toprol 12.5mg bid, forgot dose last night, gave him 25mg this am. mild hypotension at baseline.
Past Medical History
Past Medical History: Other (as above)
Social History
Tobacco: Former Smoker
Living: With Family
Employment: Retired
Family History
Family History: Reviewed & Not Pertinent
Allergies / Home Medications
Allergy/AdvReac Type Severity Reaction Status Date / Time
No Known Allergies Allergy Verified 03/18/25 09:28
�Medication �Instructions �Recorded �Confirmed �Type
aspirin 81 mg tablet,delayed 81 mg PO DAILY Blood Clot 12/28/24 03/18/25 History
release Prevention/Tx
memantine 10 mg tablet 10 mg PO HS Dementia 12/28/24 03/18/25 History
metformin 500 mg tablet 500 mg PO DAILY Diabetes 12/28/24 03/18/25 History
pantoprazole 40 mg tablet,delayed 40 mg PO DAILY Gastrointestinal 12/28/24 03/18/25 History
release Issue
terazosin 1 mg capsule 1 mg PO HS Urinary Issue 12/28/24 03/18/25 History
clopidogrel 75 mg tablet 75 mg PO DAILY #30 tabs 01/02/25 03/18/25 Rx
atorvastatin 40 mg tablet (Lipitor) 40 mg PO QPM STATIN 01/07/25 03/18/25 History
dapagliflozin propanediol 10 mg 10 mg PO DAILY #30 tabs 01/16/25 03/18/25 Rx
tablet
furosemide 40 mg tablet 40 mg PO DAILY #30 tabs 01/16/25 03/18/25 Rx
lisinopril 2.5 mg tablet 2.5 mg PO DAILY #30 tabs 01/16/25 03/18/25 Rx
latanoprost 0.005 % eye drops 1 drp BOTH EYES HS 03/18/25 03/18/25 History
metoprolol succinate 25 mg 25 mg PO DAILY 03/18/25 03/18/25 History
tablet,extended release 24 hr
nitroglycerin 0.4 mg sublingual 0.4 mg sublingual [id number] PRN 03/18/25 03/18/25 History
tablet (Nitrostat) chest pains
Review of Systems
-
History Source: Family (daughter)
All other systems: Negative unless noted
Physical Exam
Vital Signs
Temp Pulse Resp BP Pulse Ox
97.7 F 85 17 89/62 98
03/18/25 09:34 03/18/25 12:36 03/18/25 12:36 03/18/25 12:36 03/18/25 12:36
Lab Results
03/18/25 09:48
03/18/25 09:48
Troponin I 0.857 ng/ml H* 03/18/25 10:11
Idn-P-Rszsrndbtgv Pept 2600 pg/ml 03/18/25 09:48
Physical Exam
General: Other (elderly, frail )
HEENT: Normocephalic
Respiratory: Clear and Non Labored Respirations
Cardiac: S1/S2 and Regular Rhythm
Breast: Deferred by me
GI: Soft and Normal Bowel Sounds
Rectal: Deferred by Provider
Musculoskeletal: No Edema
Skin: Warm and Dry
Neuro: Awake, Alert and Other (daughter is speaking for the patient and states he has dementia at baseline, speaks Cantonese)
Psych: Calm
Impression / Plan
-
Afib - new onset, likely began at 6am according to Apple Watch.
- he takes Toprol 12.5mg BID at home, daughter forgot to give him dose last night so she gave 25mg this am.
- converted to NSR in the ER.
- asymptomatic.
- [id number] score is 4 (age, CAD, CHF), recommend Eliquis 2.5mg BID.
- will stop Plavix and continue ASA with Eliquis.
- continue Toprol 12.5mg BID.
CAD - stable w/o angina.
- NSTEMI 12/2024 with significant triple-vessel disease (80% calcified distal LM, 90% ostial LCx, 90% proximal OM1, MARINE FIREMAN mid circumflex, MARINE FIREMAN RCA)
- family opted for medical management instead of high risk PCI due to significant comorbidities, and dementia at baseline.
- daughter states he denies any cardiac symptoms.
ICM - 20-25% on echo 01/2025.
- continue GDMT as BP allows.
- daughter and son do not weigh him at home.
CKD - stable.
Data Reviewed
-
EKG: Tracing Personally Visualized and interpreted (initial Afib 97 bpm, then 2 hours later NSR 87 bpm)
Radiology: Report Reviewed by me (cxr: NAD)
Medical Tests (Nuc Med, Echo etc): Report Reviewed by me (echo 01/14/25: EF 25-30%, global HK with akinesis of inferolateral and anterolateral fernandez, mild/mod MR, mod TR, PASP 49mmHg)
Labs: Labs Reviewed by me
Old Records: Reviewed
--- NOTE | 2025-03-18 14:17 | EDCM ---
Addendum entered by Keya Lizarraga 03/19/25 11:27:
Received consult for med pricing, I called [facility] [phone]. Without prescriptions they could only give me baum without insurance. Eliquis 2.5mg BID would cost $709.99 for 30 day supply, Pradaxa 150mg BID would cost $236.99.
[address] Espino sent script for Eliquis, I gave pt's daughter coupon for Free 30 day supply. I called [facility] back but they were too busy to be able to run insurance at this time. Daughter aware and will follow up with pharmacy.
We discussed VN referral, they have used [facility] in the past. Pt will be staying with his other daughter in [facility] for next 2 weeks. I offered to set up [facility]N there and they could transfer care once pt is back in [place] but
daughter declined. She will call PCP for VN referral once she is back from vacation. Dr Espino aware.
No other CM needs at this time.
Original Note:
Reviewed chart and met with daughter Dustin at bedside. Pt lives with Dustin, her and 9 yo son in [place] [address] [place]. Has first floor set up with walk in shower.
Needs assistance with ADLs, personal care, ambulates with rollator. Has Home O2 from [employer] but has not been using recently.
Pt is Cantonese Speaking.
He has a history of Dementia, CAD, Cardiomyopathy, CHF, HTN, HLD, DM, CKD.
Confirms prescription coverage.
Hx [facility], also hx [facility] after January admission
PCP: India Lee
Pharmacy: [facility]
OBS form reviewed and signed, daughter declined copy.
CM will continue to follow for all discharge planning needs.
[2025-03-18 15:24] LABS: Troponin I 4.730 ng/ml
[2025-03-18] MEDS: LIPITOR 40 MG PO (17:03)
[2025-03-18] MEDS: NOVOLOG FLEXPEN-LOW RESISTANCE 1 UNITS SC (17:05)
[2025-03-18] MEDS: ELIQUIS 2.5 MG PO (19:41)
[2025-03-18] MEDS: TOPROL XL PO (19:45)
[2025-03-18] MEDS: NAMENDA 10 MG PO (21:20)
[2025-03-18] MEDS: XALATAN OPHTHALMIC SOLUTION 1 DROP BOTH EYES (21:20)
--- NOTE | 2025-03-18 21:35 | PTCARENOTE ---
pt's accucheck 129.
[2025-03-18 21:45] LABS: Troponin I 5.940 ng/ml
[2025-03-19] VITALS (11 sets, daily range): BP systolic 98–128; BP diastolic 53–75; PULSE 87
[2025-03-19 04:03] LABS: Hematocrit 32.8 % (39.0-52.0); Hemoglobin 11.0 g/dL (13.0-18.0); Mean Corp Hgb Conc. 33.5 g/dL (33.0-37.0); Mean Corpuscular Volume 88.9 fL (80.0-94.0); Platelet Count 189 10^3/uL (130-400); Red Cell Dist. Width 14.6 % (11.5-14.5)
[2025-03-19 04:35] LABS: Troponin I 5.140 ng/ml
[2025-03-19 04:36] LABS: Blood Urea Nitrogen 33 mg/dl (9-20); Calcium 8.2 mg/dl (8.4-10.2); Carbon Dioxide 22 mmol/L (22-30); Chloride 105 mmol/L (98-107); Estimated Creatinine Clearance 35 ml/min; Glucose 101 mg/dl (70-99); Potassium 5.2 mmol/L (3.5-5.1); Sodium 132 mmol/L (135-145); eGFR > 60.00
--- NOTE | 2025-03-19 08:00 | PTCARENOTE ---
Addendum entered by Payton Bolivar RN 03/19/25 12:22:
pre lunch accucheck 189.
Original Note:
Accucheck machine not transmitting glucose testing into [employer]. This patient's bedside glucose is 95 this morning.
[2025-03-19 08:42] LABS: Glycohemoglobin (HgbA1c) 6.4 % (4.0-5.9)
[2025-03-19] MEDS: NOVOLOG FLEXPEN-LOW RESISTANCE SC ×2 (08:47→13:40)
[2025-03-19] MEDS: TOPROL XL 12.5 MG PO (09:41)
[2025-03-19] MEDS: ASPIR LOW (ENTERIC COATED) 81 MG PO (09:45)
[2025-03-19] MEDS: PROTONIX 40 MG PO (09:45)
--- NOTE | 2025-03-19 09:55 | W.PN.CD ---
Today's Communication / Plan
-
Case management to baum Eliquis for new A-fib
He will be discharged on aspirin and Eliquis. Stop clopidogrel.
Resume Lasix and lisinopril tomorrow.
Okay for discharge from a cardiovascular standpoint if Eliquis is affordable.
Impression / Plan
-
85 year old male with CAD (medically managed), chronic HFrEF/ICM (EF 20-25%), HLD, and DM admitted with new onset PAF (asymptomatic).
Cardiology: Leilani
Acute paroxysmal atrial fibrillation with RVR
- New onset this admission. Patient's daughter reports that he was presyncopal and an Apple Watch alerted them to AF with RVR. They forgot to give him metoprolol the night before
- Spontaneously converted to NSR in the ER.
- [id number] score is 4 (age, CAD, CHF), continue Eliquis 2.5mg BID (age, weight). Case management to baum.
- will stop Plavix and continue ASA with Eliquis.
- continue Toprol 12.5mg BID.
Type II NC
- He has known severe triple-vessel disease (80% calcified distal LM, 90% ostial LCx, 90% proximal OM1, ENVIRONMENTAL COMPLIANCE OFFICER mid circumflex, ENVIRONMENTAL COMPLIANCE OFFICER RCA). Medical management due to significant comorbidities and dementia at baseline.
- Suspect his type II NC is due to A-fib with RVR. He is asymptomatic. ECG relatively unchanged from his abnormal baseline.
- Treat AF as above
- Continue aspirin and statin. Last LDL at goal.
HFrEF (EF 20-25%)
- Due to ischemic cardiomyopathy. Baseline GDMT limited by hypotension. He does not appear to be in a CHF exacerbation.
- Resume home GDMT with metoprolol, Farxiga, lisinopril, and daily Lasix starting tomorrow
- We reviewed recommendations for low-salt diet and daily weights
CKD - stable.
Subjective: Daughter reports that he looks better than prior to admission. Patient is not Hungarian-speaking and has dementia so it is difficult to communicate.
Physical Exam
Vital Signs/Labs
Vital Signs
Temp Pulse Resp BP Pulse Ox
97.7 F 76 16 100/53 98
03/19/25 07:18 03/19/25 07:00 03/19/25 07:00 03/19/25 06:00 03/18/25 19:15
03/18/25 03/19/25 03/20/25
06:59 06:59 06:59
Actual Weight 107 lb 9.369 oz
03/19/25 03:38
03/19/25 03:38
Magnesium 2.3 mg/dl (1.6-2.3) 03/18/25 09:48
03/18/25
09:48
Usx-W-Uckfxocpwwu Pept 2600
LAB Results
03/18/25 03/18/25 03/18/25
10:11 14:34 21:06
Troponin I 0.857 H* 4.730 H* D 5.940 H* D
03/19/25
03:38
Troponin I 5.140 H*
Physical Exam
Constitutional: No acute distress and Comfortable
Cardiovascular: Rhythm & rate is regular, Pedal edema is absent, S1S2 is normal and Murmur/rub/gallop absent
Respiratory: Respiratory effort normal and Crackles Present (L basilar crackles present)
Neuro/Psych: AO x 3
Data Reviewed
-
Date of Service: March 19, 2025
Medical Decision Making: Reviewed Test Results, Test Interpretation and Review of Case with other Provider
EKG: Tracing Personally Visualized and interpreted
Echo: Report Reviewed by me
Labs: Labs Reviewed by me
[2025-03-19] MEDS: ELIQUIS 2.5 MG PO (10:58)
[2025-03-19] MEDS: FARXIGA 10 MG PO (10:58)
[2025-03-19 12:26] LABS: Glucose - Point of Care 189 mg/dl (70-99)
[2025-03-19 12:26] LABS: Glucose - Point of Care 95 mg/dl (70-99)
[2025-03-19 12:26] LABS: Glucose - Point of Care 149 mg/dl (70-99)
[2025-03-19 12:26] LABS: Glucose - Point of Care 188 mg/dl (70-99)
--- NOTE | 2025-03-19 12:29 | W.PN.HOSP.TC ---
Today's Communication/Plan
-
Discharge
Assessment / Plan
Assessment / Plan
85-year-old male with rapid heartbeat and unresponsive episode. Reportedly Apple Watch showed heart rate was 147 in the ER it was rate controlled A-fib and then spontaneously converted to sinus rhythm.
Echo 01/14/[id number] to 30%, global hypokinesis with akinesis of the inferolateral and anterolateral fernandez. Mild to moderate MR, moderate TR
Chest x-ray-no acute cardiopulmonary disease-reviewed by me
EKG-sinus rhythm, cannot rule out inferior infarct-reviewed.
Per family patient has dementia and has difficulty using associate buyer services therefore family preferred to translate patient only states yes or no at times and not reliable answers.
Patient is awake, dementia
Cardiovascular system S1-S2 appreciated, systolic murmur at apex
Chest decreased breath sounds were clear to auscultation
No pedal edema
Difficulty following directions
# New diagnosis of atrial fibrillation converted to sinus rhythm
Cardiology was consulted in the ER
Patient admitted overnight for observation
Continue metoprolol, Eliquis started
Case management to check pricing.
Family wanted Eliquis. Aware about pricing unclear at this point case management checking
# Elevated troponin-peaked to 5.94, now trending down. Type 2 PA due to Afib- Medical management.
# Syncope likely secondary to new onset atrial fibrillation with rapid rates
# Hypotension-likely secondary to diuresis
Patient received 1 L of normal saline in the ER
May likely run low secondary to cardiomyopathy
Blood pressure improved
# Multivessel coronary disease-history of non-STEMI December 2024-family opted for medical management
Plavix discontinued as patient is started on Eliquis, continue aspirin
# Ischemic cardiomyopathy with EF 25 to 30%/chronic HFrEF-monitor daily weights intake output charting.
Patient is on dapagliflozin, lisinopril, metoprolol, Lasix as outpatient
Meds to be restarted tomorrow.
# Valvular heart disease-mild to moderate MR, moderate TR
# Type 2 diabetes-hemoglobin A1c-6.4
Restart metformin. Continue dapagliflozin
Sliding scale coverage with Accu-Cheks
# CKD stage III- Creat stable.
# Chronic hyponatremia
# Dementia-continue Namenda
# Glaucoma-continue latanoprost
# Prostate disease-on terazosin- Restart tomorrow
# History of CVA
# Former smoker
# DVT prophylaxis-Eliquis
# Full code
D/w Cardiology
Discussed with physical therapy at bedside
Discussed with nursing at bedside
Discussed with case management
Discussed with daughter and at bedside
Patient has not been moving out of bed since his last visit December. He is mostly bedbound and family assists him to a chair. They take care of him at home. They do not want him to go to rehab. I discussed about fall precautions and Eliquis
can increase risk of bleeding if he were to fall. Daughter states that patient will be moving with another daughter soon for the next couple of weeks therefore they do not wish visiting nursing services.
Made aware that they can pursue this through PCP if needed
At a later date
They wish to take the patient home
Given his age, cardiac condition, other comorbidities and dementia I discussed CODE STATUS. Family wish to keep patient full code
More than 30 minutes spent in discharge including
Final examination of the patient
Summarizing hospital stay
Instructions for continuing care to all relevant caregivers
Preparation of discharge records, prescriptions, and referral forms
Part of this note was created using voice recognition system. Occasional wrong word or��sound alike� substitutions may have inadvertently occurred due to the inherent limitations of voice recognition software. If noted kindly bring it to my
attention for correction.
Anticipated Discharge: Today
Subjective/Interval History
-
Date of Service: March 19, 2025
Objective Data
-
Labs:
Laboratory Results
03/19/25
03:38
WBC 8.5
Hgb 11.0 L
Hct 32.8 L
Plt Count 189
Sodium 132 L
Potassium 5.2 H D
Chloride 105
Carbon Dioxide 22
BUN 33 H
Creatinine 1.1
Glucose 101 H
Calcium 8.2 L
Vital Signs:
Vital Signs
Temp Pulse Resp BP Pulse Ox
98.2 F 88 19 109/61 98
03/19/25 11:10 03/19/25 10:00 03/19/25 10:00 03/19/25 10:00 03/18/25 19:15
I&O
03/18/25 03/19/25 03/20/25
06:59 06:59 06:59
Intake Total 500 / 500
Balance 500 / 500
--- NOTE | 2025-03-19 12:30 | W.DS.TRANS ---
Addendum entered and electronically signed by Aletha Espino MD 03/20/25 15:20:
Dictation- [id number]
Original Note:
DC Summary - Compactor Driver
-
Discharge Instructions:
Discharge Diagnosis/Procedures Atrial fibrillation
Ischemic cardiomyopathy
Chronic heart failure with reduced ejection
fraction
Hypertension
Hyperlipidemia
Diabetes
CVA
Chronic kidney disease
Chronic hyponatremia
Dementia
Diet 2 Gram Sodium,Restrict fluids to 48 oz
Activity As tolerated,With assistance
Driving Restrictions No driving
Blood Work CBC , BMP 1 month
Other Services VN
Specialty Instructions Weigh Daily
Instructions:
Stand-Alone Forms:
Changes to Home Medications: Yes
Discharge Medications:
DC Medications w/original date entered in [facility]
aspirin 81 mg tablet,delayed release 81 mg PO DAILY Blood Clot Prevention/Tx 12/28/24
memantine 10 mg tablet 10 mg PO HS Dementia 12/28/24
metformin 500 mg tablet 500 mg PO DAILY Diabetes 12/28/24
pantoprazole 40 mg tablet,delayed release 40 mg PO DAILY Gastrointestinal Issue 12/28/24
terazosin 1 mg capsule 1 mg PO HS Urinary Issue 12/28/24
atorvastatin 40 mg tablet (Lipitor) 40 mg PO QPM High Cholesterol 01/07/25
dapagliflozin propanediol 10 mg tablet 10 mg PO DAILY Heart Failure 03/18/25
furosemide 40 mg tablet 40 mg PO DAILY Heart Failure 03/18/25
latanoprost 0.005 % eye drops 1 drp BOTH EYES HS Eye Condition 03/18/25
lisinopril 2.5 mg tablet 2.5 mg PO DAILY Heart Failure 03/18/25
nitroglycerin 0.4 mg sublingual tablet (Nitrostat) 0.4 mg sublingual [id number] PRN chest pains 03/18/25
apixaban 2.5 mg tablet (Eliquis) 2.5 mg PO BID Blood clot prevention/tx #60 tabs 03/19/25
metoprolol succinate 25 mg tablet,extended release 24 hr 12.5 mg (1/2 x 25 mg) PO BID Heart disease/condition #60 tabs 03/19/25
Home Medication Changes
Plavix discontinued
Metoprolol changed to 12.5 mg twice daily
Eliquis is new
Pending Results: No
--- NOTE | 2025-03-19 13:26 | PTOTSP ---
Dysphagia Evaluation
Patient is tolerating his baseline diet (IDDSI 4 puree, IDDSI 2 mildly thick liquids via tsp) without signs of oral/pharyngeal dysphagia or overt signs of aspiration. No clinical signs concerning for aspiration complications present. Family
politely declined advanced solid/liquid trials due to reports of 'choking' (described as coughing) on these textures prior to admission. See patient care note for details.
Recommend:
1. Resume baseline diet per family wishes (IDDSI 4 puree, IDDSI 2 mildly thick via tsp)
2. Medications crushed in puree
3. FULL supervision and assistance
4. Strategies: single sips, slow rate
5. Oral care 3x daily
No further dysphagia tx warranted. Please reconsult as appropriate.
== END 2025-03-19 14:17 | disposition home health service (06) ==
LOC: ED 12:48
PROVIDERS: Physician Assistant Medical; ADMITTING PHYSICIAN Hospitalist; ATTENDING PHYSICIAN Hospitalist; CONSULT PHYSICIAN Internal Medicine; EMERGENCY PHYSICIAN Emergency Medicine; FAMILY PHYSICIAN Family Medicine
DX: I48.0 Paroxysmal atrial fibrillation (principal); I50.22 Chronic systolic (congestive) heart failure; I25.10 Atherosclerotic heart disease of native coronary artery without angina pectoris; E11.22 Type 2 diabetes mellitus with diabetic chronic kidney disease; N18.30 Chronic kidney disease, stage 3 unspecified; F03.B0 Unspecified dementia, moderate, without behavioral disturbance, psychotic disturbance, mood disturbance, and anxiety; K21.9 Gastro-esophageal reflux disease without esophagitis; I13.0 Hypertensive heart and chronic kidney disease with heart failure and stage 1 through stage 4 chronic kidney disease, or unspecified chronic kidney disease; E78.5 Hyperlipidemia, unspecified; E87.1 Hypo-osmolality and hyponatremia; I95.9 Hypotension, unspecified; I25.5 Ischemic cardiomyopathy; I21.A1 Myocardial infarction type 2; H40.9 Unspecified glaucoma; N42.9 Disorder of prostate, unspecified; Z79.899 Other long term (current) drug therapy; Z79.01 Long term (current) use of anticoagulants; Z79.02 Long term (current) use of antithrombotics/antiplatelets; Z79.84 Long term (current) use of oral hypoglycemic drugs; Z86.73 Personal history of transient ischemic attack (TIA), and cerebral infarction without residual deficits; Z87.891 Personal history of nicotine dependence
CPT/HCPCS: 71045; 80048; 80053; 82962; 83036; 83605; 83735; 83880; 84443; 84484; 85025; 85027; 87040; 92610; 93005; 96360; 99285; G0378